=== PATIENT | female | born 2000 | race Caucasian/White ===

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

== ENCOUNTER 2019-02-19 22:14 | Emergency (ER) | payer OTHER ==
--- NOTE | 2019-02-19 22:51 | ED ---
General Adult HPI - General Source: patient Mode of arrival: ambulatory Limitations: no limitations <Ayo Dominguez Sharmin - Last Filed: 02/19/19 22:51> <AnumsandraJoaquim Dyson - Last Filed: 02/20/19 06:21> - General Chief complaint: Psychiatric Symptoms Stated complaint: suicidal Time Seen by Provider: 02/19/19 22:37 - History of Present Illness Initial comments: Dictation was produced using [employer] medical dictation software. please excuse any grammatical, word or spelling errors. Chief Complaint: 18-year-old female with past medical history of depression and suicidal attempt presents with suicidal ideation History of Present Illness: Patient is a 18-year-old female she presents after suicidal ideation. Patient was in her room when she was going to attempt to hang herself from her ceiling fan. Patient also was going to turn the car and of the garage to poison herself. Patient states she's been depressed. Denies any homicidal ideation. Denies any auditory or visual hallucinations. Patient has history of Tylenol overdose in the past. She was caught in her room with an electric cord having from her ceiling. She was then caught by her mother who broke down the door. law enforcement was called patient back to the emergency department. The ROS documented in this emergency department record has been reviewed and confirmed by me. Those systems with pertinent positive or negative responses have been documented in the HPI. All other systems are other negative and/or noncontributory. PHYSICAL EXAM: General Impression: Alert and oriented x3, not in acute distress HEENT: Normocephalic atraumatic, extra-ocular movements intact, pupils equal and reactive to light bilaterally, mucous membranes moist. Cardiovascular: Heart regular rate and rhythm, S1&S2 audible, no murmurs, rubs or gallops Chest: Lungs clear to auscultation bilaterally, no rhonchi, no wheeze, no rales Abdomen: Bowel sounds present, abdomen soft, non-tender, non-distended, no organomegaly Musculoskeletal: Pulses present and equal in all extremities, no peripheral edema Motor: no focal deficits noted Neurological: CN II-XII grossly intact, no focal motor or sensory deficits noted Skin: Intact with no visualized rashes Psych: Tearful ED course: 18-year-old female presents with suicidal ideation. Patient was brought in by law enforcement. Patient denies any toxic ingestions this time. Vital signs upon arrival are within acceptable limits. (Ayo Dominguez) - Related Data Home Medications Medication Instructions Recorded Confirmed ARIPiprazole [Abilify] 5 mg PO HS 09/09/18 02/19/19 Citalopram Hydrobromide [CeleXA] 40 mg PO HS 09/09/18 02/19/19 Solodyn 1 applic TOPICAL HS 02/19/19 02/19/19 lamoTRIgine [LaMICtal] 150 mg PO DAILY 02/19/19 02/19/19 Allergies Allergy/AdvReac Type Severity Reaction Status Date / Time amoxicillin Allergy Anaphylaxis Verified 02/19/19 23:31 Penicillins Allergy Anaphylaxis Verified 02/19/19 23:31 acetaminophen [From Tylenol] AdvReac Nausea & Verified 02/19/19 23:31 Vomiting Review of Systems ROS Other: All systems not noted in ROS Statement are negative. <Ayo Dominguez - Last Filed: 02/19/19 22:51> ROS Other: All systems not noted in ROS Statement are negative. <Joaquim Greer - Last Filed: 02/20/19 06:21> ROS Statement: Those systems with pertinent positive or pertinent negative responses have been documented in the HPI. Past Medical History Additional Past Medical History / Comment(s): Irritable bowel syndrome, previous Tylenol overdose with acute liver damage, over dose x2 History of Any Multi-Drug Resistant Organisms: None Reported Past Surgical History: Adenoidectomy, Tonsillectomy Additional Past Surgical History / Comment(s): wisdom teeth removal Past Anesthesia/Blood Transfusion Reactions: No Reported Reaction Past Psychological History: Anxiety, Bipolar, Depression Smoking Status: Current every day smoker Past Alcohol Use History: None Reported Past Drug Use History: Marijuana - Past Family History Father Family Medical History: Diabetes Mellitus, Hypertension Additional Family Medical History / Comment(s): Father is alive with history of diabetes Mother Family Medical History: Hypertension, Myocardial Infarction ([place]), Thyroid Disorder Additional Family Medical History / Comment(s): Mother is alive with a history of diabetes, hypothyroidism, myocardial infarction, stroke Sister(s) Additional Family Medical History / Comment(s): Patient has 3 sisters with no major medical problems. Patient does not have any brothers. <Ayo Dominguez - Last Filed: 02/19/19 22:51> General Exam Limitations: no limitations <Ayo Dominguez - Last Filed: 02/19/19 22:51> Course <Joaquim Greer - Last Filed: 02/20/19 06:21> Vital Signs 02/19/19 22:30 Temperature 97.9 F Pulse Rate 75 Respiratory 20 Rate Blood Pressure 150/90 O2 Sat by Pulse 97 Oximetry - Reevaluation(s) Reevaluation #1: 02/20/19 04:23 18-year-old female with suicidal ideation, suicide attempt. I did complain clinical certification of this patient. She will be transferred for further psychiatric evaluation and treatment. (Joaquim Greer) Medical Decision Making - Lab Data Result diagrams: 02/19/19 23:59 02/19/19 23:59 <Joaquim Greer - Last Filed: 02/20/19 06:21> - Medical Decision Making Patient will be transferred to [facility] for further psychiatric care (Joaquim Greer) - Lab Data Lab Results 02/19/19 02/19/19 02/19/19 Range/Units Unknown 23:59 23:59 WBC 9.1 (4.0-11.0) k/uL RBC 4.46 (3.80-5.40) m/uL Hgb 12.5 (11.4-16.0) gm/dL Hct 37.1 (34.0-46.0) % MCV 83.2 (80.0-100.0) fL MCH 28.0 (25.0-35.0) pg MCHC 33.7 (31.0-37.0) g/dL RDW 13.8 (11.5-15.5) % Plt Count 266 (150-450) k/uL Neutrophils % 76 % Lymphocytes % 18 % Monocytes % 4 % Eosinophils % 1 % Basophils % 0 % Neutrophils # 6.9 (1.3-7.7) k/uL Lymphocytes # 1.6 (1.0-4.8) k/uL Monocytes # 0.4 (0-1.0) k/uL Eosinophils # 0.1 (0-0.7) k/uL Basophils # 0.0 (0-0.2) k/uL Sodium 139 (137-145) mmol/L Potassium 3.9 (3.5-5.1) mmol/L Chloride 105 (98-107) mmol/L Carbon Dioxide 27 (22-30) mmol/L Anion Gap 7 mmol/L BUN 11 (7-17) mg/dL Creatinine 0.67 (0.52-1.04) mg/dL Est GFR (CKD-EPI)AfAm >90 (>60 ml/min/1.73 sqM) Est GFR (CKD-EPI)NonAf >90 (>60 ml/min/1.73 sqM) Glucose 97 (74-99) mg/dL Calcium 9.8 (8.4-10.2) mg/dL Urine HCG, Qual Not Detected (Not Detectd) Urine Opiates Screen (NotDetected) Ur Oxycodone Screen (NotDetected) Urine Methadone Screen (NotDetected) Ur Propoxyphene Screen (NotDetected) Ur Barbiturates Screen (NotDetected) U Tricyclic Antidepress (NotDetected) Ur Phencyclidine Scrn (NotDetected) Ur Amphetamines Screen (NotDetected) U Methamphetamines Scrn (NotDetected) U Benzodiazepines Scrn (NotDetected) Urine Cocaine Screen (NotDetected) U Marijuana (THC) Screen (NotDetected) 02/20/19 Range/Units 03:00 WBC (4.0-11.0) k/uL RBC (3.80-5.40) m/uL Hgb (11.4-16.0) gm/dL Hct (34.0-46.0) % MCV (80.0-100.0) fL MCH (25.0-35.0) pg MCHC (31.0-37.0) g/dL RDW (11.5-15.5) % Plt Count (150-450) k/uL Neutrophils % % Lymphocytes % % Monocytes % % Eosinophils % % Basophils % % Neutrophils # (1.3-7.7) k/uL Lymphocytes # (1.0-4.8) k/uL Monocytes # (0-1.0) k/uL Eosinophils # (0-0.7) k/uL Basophils # (0-0.2) k/uL Sodium (137-145) mmol/L Potassium (3.5-5.1) mmol/L Chloride (98-107) mmol/L Carbon Dioxide (22-30) mmol/L Anion Gap mmol/L BUN (7-17) mg/dL Creatinine (0.52-1.04) mg/dL Est GFR (CKD-EPI)AfAm (>60 ml/min/1.73 sqM) Est GFR (CKD-EPI)NonAf (>60 ml/min/1.73 sqM) Glucose (74-99) mg/dL Calcium (8.4-10.2) mg/dL Urine HCG, Qual (Not Detectd) Urine Opiates Screen Not Detected (NotDetected) Ur Oxycodone Screen Not Detected (NotDetected) Urine Methadone Screen Not Detected (NotDetected) Ur Propoxyphene Screen Not Detected (NotDetected) Ur Barbiturates Screen Not Detected (NotDetected) U Tricyclic Antidepress Not Detected (NotDetected) Ur Phencyclidine Scrn Not Detected (NotDetected) Ur Amphetamines Screen Not Detected (NotDetected) U Methamphetamines Scrn Not Detected (NotDetected) U Benzodiazepines Scrn Not Detected (NotDetected) Urine Cocaine Screen Not Detected (NotDetected) U Marijuana (THC) Screen Detected H (NotDetected) Disposition <Ayo Dominguez - Last Filed: 02/19/19 22:51> Is patient prescribed a controlled substance at d/c from ED?: No - Out of Hospital Transfer - Req. Specs Out of Hospital Transfer - Requested Specifics: Psychiatric Non-ICU (Transfered to [facility]) <Joaquim Greer - Last Filed: 02/20/19 06:21> Clinical Impression: Depression, Attempted suicide Disposition: OTHER INSTITUTION NOT DEFINED Condition: Stable Referrals: None,Stated [Primary Care Provider] - 1-2 days
[2019-02-20] MEDS ORDERED: ALPRAZolam 0.5 MG TAB PO STA (00:06)
[2019-02-20 00:10] LABS: Basophils % (A) 0 %; Eosinophils # (A) 0.1 k/uL (0-0.7); Eosinophils % (A) 1 %; HCT 37.1 % (34.0-46.0); HGB 12.5 gm/dL (11.4-16.0); Lymphocytes # (A) 1.6 k/uL (1.0-4.8); Lymphocytes % (A) 18 %; MCHC 33.7 g/dL (31.0-37.0); MCV 83.2 fL (80.0-100.0); Mean Platelet Volume 6.6; Monocytes # (A) 0.4 k/uL (0-1.0); Monocytes % (A) 4 %; Neutrophils # (A) 6.9 k/uL (1.3-7.7); Neutrophils % (A) 76 %; Platelet Count 266 k/uL (150-450); RBC 4.46 m/uL (3.80-5.40); RDW 13.8 % (11.5-15.5); WBC 9.1 k/uL (4.0-11.0)
[2019-02-20 00:35] LABS: Anion Gap 7 mmol/L; Blood Urea Nitrogen 11 mg/dL (7-17); Calcium 9.8 mg/dL (8.4-10.2); Carbon Dioxide 27 mmol/L (22-30); Chloride 105 mmol/L (98-107); Glucose 97 mg/dL (74-99); Potassium 3.9 mmol/L (3.5-5.1); Sodium 139 mmol/L (137-145)
[2019-02-20 03:40] LABS: Amphetamine Screen,Urine Not Detected (NotDetected); Barbiturate Screen,Urine Not Detected (NotDetected); Benzodiazepines Screen,Urine Not Detected (NotDetected); Cocaine Screen,Urine Not Detected (NotDetected); Methadone Screen, Urine Not Detected (NotDetected); Opiate Screen,Urine Not Detected (NotDetected); Oxycodone Screen, Urine Not Detected (NotDetected); Phencyclidine Screen,Urine Not Detected (NotDetected); Tricyclic Antidepressant,Urine Not Detected (NotDetected); Urn Cannabinoid Scrn Detected (NotDetected)
[2019-02-20 07:16] VITALS: BP 120/69; PULSE 79; RESP 16; TEMP 98.5
== END 2019-02-20 07:18 | disposition other institution (70) ==
LOC: EC 22:14
DX: F31.9 Bipolar disorder, unspecified (principal); R45.851 Suicidal ideations; F41.9 Anxiety disorder, unspecified; F17.200 Nicotine dependence, unspecified, uncomplicated; Z79.899 Other long term (current) drug therapy; Z88.0 Allergy status to penicillin; Z88.8 Allergy status to other drugs, medicaments and biological substances
CPT/HCPCS: 36415; 80048; 80306; 81025; 85025; 99285

== ENCOUNTER 2023-10-09 18:16 | Inpatient (IN) | payer OTHER ==
--- NOTE | 2023-10-09 20:15 | ED ---
General Adult HPI - General Source: EMS Mode of arrival: EMS Limitations: altered mental status <Ventura Smith - Last Filed: 10/10/23 16:20> - History of Present Illness -: unknown Location: head Severity scale (1-10): 10 Quality: aching Consistency: constant Worsens with: none Associated Symptoms: confusion <Donis Landers - Last Filed: 10/17/23 14:14> - General Chief complaint: Psychiatric Symptoms Stated complaint: mental health Time Seen by Provider: 10/09/23 18:30 - History of Present Illness Initial comments: 23-year-old female presents to the ED with a chief complaint of psychiatric problem. Patient states last night anywhere from approximately 8 PM to 10 PM took all of her pills in attempt to kill herself. Patient ingested an unknown amount of much of Lamotrigine 100 mg, buspirone him a diphenhydramine 25 mg, sumatriptan 100 mg, lithium 300 mg, and apoquel. (Ventura Smith) This is a 23-year-old female the emergency department today for evaluation of overdose, unknown drug overdose with multiple medications. Is having significant psychosis here in the ER will be admitted for evaluation and treatment medically as well as psychiatry (Donis Landers) - Related Data Home Medications Medication Instructions Recorded Confirmed Ibuprofen [Motrin] 800 mg PO Q8H PRN 10/09/23 10/09/23 [place] Carbonate [[place] 300 mg PO BID 10/09/23 10/09/23 Carbonate ER] Omeprazole [PriLOSEC] 20 mg PO DAILY 10/09/23 10/09/23 SUMAtriptan succinate 100 mg PO BID PRN 10/09/23 10/09/23 busPIRone HCl [Buspar] 5 mg PO BID 10/09/23 10/09/23 diphenhydrAMINE [Benadryl] 25 mg PO QID PRN 10/09/23 10/09/23 lamoTRIgine [lamoTRIgine ER] 300 mg PO DAILY 10/09/23 10/09/23 Allergies Allergy/AdvReac Type Severity Reaction Status Date / Time amoxicillin Allergy Anaphylaxis Verified 10/09/23 20:19 Penicillins Allergy Anaphylaxis Verified 10/09/23 20:19 acetaminophen [From Tylenol] AdvReac Nausea & Verified 10/09/23 20:19 Vomiting Review of Systems ROS Other: All systems not noted in ROS Statement are negative. <Ventura Smith - Last Filed: 10/10/23 16:20> ROS Other: All systems not noted in ROS Statement are negative. <Donis Landers - Last Filed: 10/17/23 14:14> ROS Statement: Those systems with pertinent positive or pertinent negative responses have been documented in the HPI. Past Medical History Additional Past Medical History / Comment(s): Irritable bowel syndrome, previous Tylenol overdose with acute liver damage, over dose x2 History of Any Multi-Drug Resistant Organisms: None Reported Past Surgical History: Adenoidectomy, Tonsillectomy Additional Past Surgical History / Comment(s): wisdom teeth removal Past Anesthesia/Blood Transfusion Reactions: No Reported Reaction Past Psychological History: Anxiety, Bipolar, Depression, PTSD Smoking Status: Current every day smoker Past Alcohol Use History: Occasional Past Drug Use History: Marijuana - Past Family History Father Family Medical History: Diabetes Mellitus, Hypertension Additional Family Medical History / Comment(s): Father is alive with history of diabetes Mother Family Medical History: Hypertension, Myocardial Infarction ([place]), Thyroid Disorder Additional Family Medical History / Comment(s): Mother is alive with a history of diabetes, hypothyroidism, myocardial infarction, stroke Sister(s) Additional Family Medical History / Comment(s): Patient has 3 sisters with no major medical problems. Patient does not have any brothers. <Ventura Smith - Last Filed: 10/10/23 16:20> General Exam Limitations: altered mental status General appearance: alert Eye exam: Present: other (Nystagmus) ENT exam: Present: other (Dry mucous membranes) Respiratory exam: Present: normal lung sounds bilaterally Cardiovascular Exam: Present: tachycardia GI/Abdominal exam: Present: soft Extremities exam: Present: other (Reflexes intact. No hyperreflexia.) Neurological exam: Present: alert, oriented X3 Skin exam: Present: warm <Ventura Smith - Last Filed: 10/10/23 16:20> Limitations: altered mental status General appearance: anxious, in distress Head exam: Present: atraumatic, normocephalic, normal inspection Eye exam: Present: normal appearance, PERRL, EOMI. Absent: scleral icterus, conjunctival injection, periorbital swelling ENT exam: Present: normal exam, mucous membranes moist Neck exam: Present: normal inspection. Absent: tenderness, meningismus, lymphadenopathy Respiratory exam: Present: normal lung sounds bilaterally. Absent: respiratory distress, wheezes, rales, rhonchi, stridor Cardiovascular Exam: Present: normal rhythm, tachycardia, normal heart sounds. Absent: systolic murmur, diastolic murmur, rubs, gallop, clicks GI/Abdominal exam: Present: soft, normal bowel sounds. Absent: distended, tenderness, guarding, rebound, rigid Extremities exam: Present: normal inspection, full ROM, normal capillary refill. Absent: tenderness, pedal edema, joint swelling, calf tenderness Back exam: Present: normal inspection Neurological exam: Present: alert, oriented X3, CN II-XII intact Psychiatric exam: Present: normal affect, normal mood Skin exam: Present: warm, dry, intact, normal color. Absent: rash <Donis Landers - Last Filed: 10/17/23 14:14> - General Exam Comments Initial Comments: Diaphoretic (Donis Landers) Course <Donis Landers - Last Filed: 10/17/23 14:14> Vital Signs 10/09/23 10/10/23 10/10/23 18:28 03:12 07:26 Temperature 98.9 F 97.4 F L Pulse Rate 105 H 102 H 81 Respiratory 18 22 20 Rate Blood Pressure 155/98 143/96 127/76 O2 Sat by Pulse 96 97 98 Oximetry Fraction of Inspired Oxygen (FIO2) 10/10/23 10/10/23 10/10/23 10:35 18:00 22:00 Temperature 98.3 F 98.5 F 100.4 F H Pulse Rate 100 89 98 Respiratory 22 20 22 Rate Blood Pressure 148/95 147/76 142/80 O2 Sat by Pulse 97 98 96 Oximetry Fraction of Inspired Oxygen (FIO2) 10/11/23 10/11/23 10/11/23 00:00 01:00 02:00 Temperature 99.9 F H Pulse Rate 117 H 111 H 115 H Respiratory 22 20 Rate Blood Pressure 153/75 150/53 O2 Sat by Pulse 96 97 Oximetry Fraction of Inspired Oxygen (FIO2) 10/11/23 10/11/23 10/11/23 03:00 04:00 05:00 Temperature 99.6 F Pulse Rate 117 H 92 95 Respiratory 20 20 20 Rate Blood Pressure 134/77 136/80 125/72 O2 Sat by Pulse 96 96 96 Oximetry Fraction of Inspired Oxygen (FIO2) 10/11/23 10/11/23 10/11/23 06:00 08:00 09:00 Temperature 99.3 F Pulse Rate 90 96 112 H Respiratory 20 24 22 Rate Blood Pressure 142/71 116/62 117/62 O2 Sat by Pulse 96 95 95 Oximetry Fraction of Inspired Oxygen (FIO2) 10/11/23 10/11/23 10/11/23 12:00 14:00 16:44 Temperature Pulse Rate 112 H 115 H Respiratory 27 H 23 Rate Blood Pressure 140/104 152/83 O2 Sat by Pulse 97 95 Oximetry Fraction of 100 Inspired Oxygen (FIO2) 10/11/23 10/11/23 10/11/23 16:45 16:55 17:10 Temperature Pulse Rate 126 H 147 H 151 H Respiratory 45 H 32 H 32 H Rate Blood Pressure 129/66 201/99 136/54 O2 Sat by Pulse 99 99 99 Oximetry Fraction of Inspired Oxygen (FIO2) 10/11/23 10/11/23 17:20 17:49 Temperature 102 F H Pulse Rate 120 H Respiratory 32 H Rate Blood Pressure 124/66 O2 Sat by Pulse 98 Oximetry Fraction of 50 Inspired Oxygen (FIO2) - Reevaluation(s) Reevaluation #1: 10/10/23 22:28 Record is reviewed (Donis Landers) Reevaluation #2: 10/10/23 22:28 Patient is having worsening symptoms here in the ER is becoming more altered with increased psychosis significant nystagmus is noted on exam with diaphoresis with elevated heart rate as well as involuntary movement (Donis Landers) Reevaluation #3: 10/10/23 22:31 Patient family informed of results questions answered (Donis Landers) Reevaluation #4: Was pt. sent in by a medical professional or institution (, PA, RAM PRESS OPERATOR, urgent care, hospital, or detention...) When possible be specific @ -no Did you speak to anyone other than the patient for history (EMS, parent, family, police, friend...)? What history was obtained from this source @ -no Did you review nursing and triage notes (agree or disagree)? Why? @ -agree Are old charts reviewed (outside hosp., previous admission, EMS record, old EKG, old radiological studies, urgent care reports/EKG's, detention records)? Report findings @ -yes Differential Diagnosis (chest pain, altered mental status, abdominal pain women, abdominal pain men, vaginal bleeding, weakness, fever, dyspnea, syncope, headache, dizziness, GI bleed, back pain, seizure, CVA, palpatations, mental health, musculoskeletal)? @ -prior EKG interpreted by me (3pts min.). @ -yes X-rays interpreted by me (1pt min.). @ -no CT interpreted by me (1pt min.). @ -no U/S interpreted by me (1pt. min.). @ -no What testing was considered but not performed or refused? (CT, X-rays, U/S, labs)? Why? @ -none What meds were considered but not given or refused? Why? @ -none Did you discuss the management of the patient with other professionals (professionals i.e. , PA, RAM PRESS OPERATOR, lab, RT, psych nurse, social sciences department chair, channel supervisor, teacher, infantry officer, employment evaluator/case manager)? Give summary @ -no Was smoking cessation discussed for >3mins.? @ -no Was critical care preformed (if so, how long)? @ yes31 Were there social determinants of health that impacted care today? How? (Homelessness, low income, unemployed, alcoholism, drug addiction, transportation, low edu. Level, literacy, decrease access to med. care, retirement, rehab)? @ -none Was there de-escalation of care discussed even if they declined (Discuss DNR or withdrawal of care, Hospice)? DNR status @ -no What co-morbidities impacted this encounter? (DM, HTN, Smoking, COPD, CAD, Cancer, CVA, ARF, Chemo, Hep., AIDS, mental health diagnosis, sleep apnea, morbid obesity)? @ -none Was patient admitted / discharged? Hospital course, mention meds given and route, prescriptions, significant lab abnormalities, going to OR and other pertinent info. @ - 23 female to emergency trauma today for evaluation was initially to be seen by psychiatry, patient is going to significant past traumatic toxidrome with diaphoresis elevated heart rate and fever found here in the emergency department. Patient significantly altered secondary to psychiatric overdose, significant significantly restless and unresponsive blood patient is protecting her airway and is maintaining her respiratory rate for further evaluation management Admitted Undiagnosed new problem with uncertain prognosis? @ -no Drug Therapy requiring intensive monitoring for toxicity (Heparin, Nitro, Insulin, Cardizem)? @ -no Were any procedures done? @ -no Diagnosis/symptom? @ -Overdose with suicide attempt, sympathomimetic poisoning Acute, or Chronic, or Acute on Chronic? @ -Acute Uncomplicated (without systemic symptoms) or Complicated (systemic symptoms)? @ -Complicated Side effects of treatment? @ -no Exacerbation, Progression, or Severe Exacerbation? @ -exacerbation Poses a threat to life or bodily function? How? (Chest pain, [place], [place], pneumonia, PE, COPD, DKA, ARF, appy, cholecystitis, CVA, Diverticulitis, Homicidal, Suicidal, threat to staff... and all critical care pts) @ -yes with significant overdose (Donis Landers) Reevaluation #5: 10/10/23 22:28 Differential Altered Mental Status: Hypoglycemia, DKA, hypercapnia, ETOH, overdose, CO poisoning, trauma, myxedema coma, HTN encephalopathy, infection, encephalitis, psychosis, intercranial hemorrhage, hepatic encephalopathy, meningitis, CVA, this is not meant to be an all-inclusive list (Donis Landers) - Consultations Consultation #1: Spoke with [facility] regarding admission and they are agreeable (Donis Landers) EKG Findings - EKG Comments: EKG Findings:: EKG is sinus 93 VA 146 QRS 90 QTC 432 - EKG Results: EKG: interpreted by ERMD <Donis Landers - Last Filed: 10/17/23 14:14> Medical Decision Making - Lab Data Result diagrams: 10/09/23 19:39 10/09/23 21:17 <Ventura Smith - Last Filed: 10/10/23 16:20> - Lab Data Result diagrams: 10/16/23 05:57 10/17/23 06:09 - EKG Data -: EKG Interpreted by Me <Donis Landers - Last Filed: 10/17/23 14:14> - Medical Decision Making Was pt. sent in by a medical professional or institution (KRYSTA Cameron, RAM PRESS OPERATOR, urgent care, hospital, or detention...) When possible be specific @ -No Did you speak to anyone other than the patient for history (EMS, parent, family, police, friend...)? What history was obtained from this source @ -No Did you review nursing and triage notes (agree or disagree)? Why? @ -I reviewed and agree with nursing and triage notes Were old charts reviewed (outside hosp., previous admission, EMS record, old EKG, old radiological studies, urgent care reports/EKG's, detention records)? Report findings @ -No old charts were reviewed Differential Diagnosis (chest pain, altered mental status, abdominal pain women, abdominal pain men, vaginal bleeding, weakness, fever, dyspnea, syncope, headache, dizziness, GI bleed, back pain, seizure, CVA, palpatations, mental health, musculoskeletal)? @ -Differential Mental Health Depression, anxiety, bipolar, psychosis, schizophrenia, borderline personality, situational depression, adjustment disorder, behavioral disorder, brain tumor, malingering, substance abuse, encephalopathy, medication reaction, dementia, hypothyroidism, degenerative neurologic disorder, lupus.... This is not meant to be all-inclusive list EKG interpreted by me (3pts min.). @ -EKG shows a sinus rhythm with nonspecific ST and T-wave changes. VA 146, QRS 90, QT/QTC 381/432. X-rays interpreted by me (1pt min.). @ -None done CT interpreted by me (1pt min.). @ -None done U/S interpreted by me (1pt. min.). @ -None done What testing was considered but not performed or refused? (CT, X-rays, U/S, labs)? Why? @ -None What meds were considered but not given or refused? Why? @ -None Did you discuss the management of the patient with other professionals (professionals i.e. KRYSTA Cameron, RAM PRESS OPERATOR, lab, RT, psych nurse, social sciences department chair, channel supervisor, teacher, infantry officer, employment evaluator/case manager)? Give summary @ -Discussed with poison control with this time recommends comprehensive metabolic panel, lithium, trending lithium at least twice if levels are found to be elevated, and drug screening. Was smoking cessation discussed for >3mins.? @ -No Was critical care preformed (if so, how long)? @ -No Were there social determinants of health that impacted care today? How? (Homelessness, low income, unemployed, alcoholism, drug addiction, transportation, low edu. Level, literacy, decrease access to med. care, retirement, rehab)? @ -No Was there de-escalation of care discussed even if they declined (Discuss DNR or withdrawal of care, Hospice)? DNR status @ -No What co-morbidities impacted this encounter? (DM, HTN, Smoking, COPD, CAD, Cancer, CVA, ARF, Chemo, Hep., AIDS, mental health diagnosis, sleep apnea, morbid obesity)? @ -None Was patient admitted / discharged? Hospital course, mention meds given and route, prescriptions, significant lab abnormalities, going to OR and other pertinent info. @ -Admission Patient presenting with polysubstance overdose in attempt to kill herself last night. Laboratory studies reviewed. CBC unremarkable. Chemistry panel unremarkable. Urine hCG (-). Toxicology studies other than lithium unremarkable. Lithum found to be therapuetic at 0.8. Repeat shows no increase at 0.8. At this time, patient is medically clear. Patient evaluated by psychiatry who at this time recommend patient psychiatric services. Undiagnosed new problem with uncertain prognosis? @ -No Drug Therapy requiring intensive monitoring for toxicity (Heparin, Nitro, Insulin, Cardizem)? @ -No Were any procedures done? @ -No Diagnosis/symptom? @ -Suicidal ideation Acute, or Chronic, or Acute on Chronic? @ -Acute Uncomplicated (without systemic symptoms) or Complicated (systemic symptoms)? @ -Complicated Side effects of treatment? @ -No Exacerbation, Progression, or Severe Exacerbation? @ -No Poses a threat to life or bodily function? How? (Chest pain, [place], [place], pneumonia, PE, COPD, DKA, ARF, appy, cholecystitis, CVA, Diverticulitis, Homicidal, Suicidal, threat to staff... and all critical care pts) @ -Yes, possibly (Ventura Smith) 23 female to emergency trauma today for evaluation was initially to be seen by psychiatry, patient is going to significant past traumatic toxidrome with diaphoresis elevated heart rate and fever found here in the emergency department. Patient significantly altered secondary to psychiatric overdose, significant significantly restless and unresponsive blood patient is protecting her airway and is maintaining her respiratory rate for further evaluation management (Roskopp,Donis B) - Lab Data Lab Results 10/09/23 10/09/23 10/09/23 Range/Units 19:39 19:39 21:17 WBC 10.1 (3.8-10.6) k/uL RBC 4.63 (3.80-5.40) m/uL Hgb 13.0 (11.4-16.0) gm/dL Hct 37.9 (34.0-46.0) % MCV 81.9 (80.0-100.0) fL MCH 28.2 (25.0-35.0) pg MCHC 34.4 (31.0-37.0) g/dL RDW 14.6 (11.5-15.5) % Plt Count 363 (150-450) k/uL MPV 7.6 Neutrophils % 75 % Lymphocytes % 19 % Monocytes % 5 % Eosinophils % 0 % Basophils % 0 % Neutrophils # 7.6 (1.3-7.7) k/uL Lymphocytes # 1.9 (1.0-4.8) k/uL Monocytes # 0.5 (0-1.0) k/uL Eosinophils # 0.0 (0-0.7) k/uL Basophils # 0.0 (0-0.2) k/uL Sodium 142 (137-145) mmol/L Potassium 3.7 (3.5-5.1) mmol/L Chloride 106 (98-107) mmol/L Carbon Dioxide 21 L (22-30) mmol/L Anion Gap 15 mmol/L BUN 8 (7-17) mg/dL Creatinine 0.88 (0.52-1.04) mg/dL Est GFR (CKD-EPI)AfAm >90 (>60 ml/min/1.73 sqM) Est GFR (CKD-EPI)NonAf >90 (>60 ml/min/1.73 sqM) Glucose 129 H (74-99) mg/dL Calcium 9.6 (8.4-10.2) mg/dL Total Bilirubin 0.5 (0.2-1.3) mg/dL AST 17 (14-36) U/L ALT 18 (4-34) U/L Alkaline Phosphatase 96 (38-126) U/L Total Protein 6.9 (6.3-8.2) g/dL Albumin 4.2 (3.5-5.0) g/dL Urine HCG, Qual (Not Detectd) Salicylates <1.0 mg/dL Urine Opiates Screen (NotDetected) Ur Oxycodone Screen (NotDetected) Urine Methadone Screen (NotDetected) Ur Propoxyphene Screen (NotDetected) Acetaminophen <10.0 ug/mL Ur Barbiturates Screen (NotDetected) Phenytoin <3.0 ug/mL Valproic Acid <10.0 ug/mL Carbamazepine <3.0 ug/mL U Tricyclic Antidepress (NotDetected) Ur Phencyclidine Scrn (NotDetected) Ur Amphetamines Screen (NotDetected) U Methamphetamines Scrn (NotDetected) U Benzodiazepines Scrn (NotDetected) [place] 0.8 mmol/L Urine Cocaine Screen (NotDetected) U Marijuana (THC) Screen (NotDetected) Serum Alcohol <10 mg/dL SARS-CoV-2 (PCR) (Not Detectd) 10/09/23 10/09/23 10/09/23 Range/Units 22:43 22:43 22:43 WBC (3.8-10.6) k/uL RBC (3.80-5.40) m/uL Hgb (11.4-16.0) gm/dL Hct (34.0-46.0) % MCV (80.0-100.0) fL MCH (25.0-35.0) pg MCHC (31.0-37.0) g/dL RDW (11.5-15.5) % Plt Count (150-450) k/uL MPV Neutrophils % % Lymphocytes % % Monocytes % % Eosinophils % % Basophils % % Neutrophils # (1.3-7.7) k/uL Lymphocytes # (1.0-4.8) k/uL Monocytes # (0-1.0) k/uL Eosinophils # (0-0.7) k/uL Basophils # (0-0.2) k/uL Sodium (137-145) mmol/L Potassium (3.5-5.1) mmol/L Chloride (98-107) mmol/L Carbon Dioxide (22-30) mmol/L Anion Gap mmol/L BUN (7-17) mg/dL Creatinine (0.52-1.04) mg/dL Est GFR (CKD-EPI)AfAm (>60 ml/min/1.73 sqM) Est GFR (CKD-EPI)NonAf (>60 ml/min/1.73 sqM) Glucose (74-99) mg/dL Calcium (8.4-10.2) mg/dL Total Bilirubin (0.2-1.3) mg/dL AST (14-36) U/L ALT (4-34) U/L Alkaline Phosphatase (38-126) U/L Total Protein (6.3-8.2) g/dL Albumin (3.5-5.0) g/dL Urine HCG, Qual Not Detected (Not Detectd) Salicylates mg/dL Urine Opiates Screen Not Detected (NotDetected) Ur Oxycodone Screen Not Detected (NotDetected) Urine Methadone Screen Not Detected (NotDetected) Ur Propoxyphene Screen Not Detected (NotDetected) Acetaminophen ug/mL Ur Barbiturates Screen Not Detected (NotDetected) Phenytoin ug/mL Valproic Acid ug/mL Carbamazepine ug/mL U Tricyclic Antidepress Not Detected (NotDetected) Ur Phencyclidine Scrn Not Detected (NotDetected) Ur Amphetamines Screen Not Detected (NotDetected) U Methamphetamines Scrn Not Detected (NotDetected) U Benzodiazepines Scrn Not Detected (NotDetected) [place] 0.8 mmol/L Urine Cocaine Screen Not Detected (NotDetected) U Marijuana (THC) Screen Detected H (NotDetected) Serum Alcohol mg/dL SARS-CoV-2 (PCR) (Not Detectd) 10/10/23 10/10/23 Range/Units 01:59 16:07 WBC (3.8-10.6) k/uL RBC (3.80-5.40) m/uL Hgb (11.4-16.0) gm/dL Hct (34.0-46.0) % MCV (80.0-100.0) fL MCH (25.0-35.0) pg MCHC (31.0-37.0) g/dL RDW (11.5-15.5) % Plt Count (150-450) k/uL MPV Neutrophils % % Lymphocytes % % Monocytes % % Eosinophils % % Basophils % % Neutrophils # (1.3-7.7) k/uL Lymphocytes # (1.0-4.8) k/uL Monocytes # (0-1.0) k/uL Eosinophils # (0-0.7) k/uL Basophils # (0-0.2) k/uL Sodium (137-145) mmol/L Potassium (3.5-5.1) mmol/L Chloride (98-107) mmol/L Carbon Dioxide (22-30) mmol/L Anion Gap mmol/L BUN (7-17) mg/dL Creatinine (0.52-1.04) mg/dL Est GFR (CKD-EPI)AfAm (>60 ml/min/1.73 sqM) Est GFR (CKD-EPI)NonAf (>60 ml/min/1.73 sqM) Glucose (74-99) mg/dL Calcium (8.4-10.2) mg/dL Total Bilirubin (0.2-1.3) mg/dL AST (14-36) U/L ALT (4-34) U/L Alkaline Phosphatase (38-126) U/L Total Protein (6.3-8.2) g/dL Albumin (3.5-5.0) g/dL Urine HCG, Qual (Not Detectd) Salicylates mg/dL Urine Opiates Screen (NotDetected) Ur Oxycodone Screen (NotDetected) Urine Methadone Screen (NotDetected) Ur Propoxyphene Screen (NotDetected) Acetaminophen ug/mL Ur Barbiturates Screen (NotDetected) Phenytoin ug/mL Valproic Acid ug/mL Carbamazepine ug/mL U Tricyclic Antidepress (NotDetected) Ur Phencyclidine Scrn (NotDetected) Ur Amphetamines Screen (NotDetected) U Methamphetamines Scrn (NotDetected) U Benzodiazepines Scrn (NotDetected) [place] 0.6 mmol/L Urine Cocaine Screen (NotDetected) U Marijuana (THC) Screen (NotDetected) Serum Alcohol mg/dL SARS-CoV-2 (PCR) Not Detected (Not Detectd) Critical Care Time Critical Care Time: Yes Total Critical Care Time: 31 <Donis Landers - Last Filed: 10/17/23 14:14> Disposition <Cabatu,Ventura - Last Filed: 10/10/23 16:20> Is patient prescribed a controlled substance at d/c from ED?: No Time of Disposition: 18:00 <Donis Landers - Last Filed: 10/17/23 14:14> Clinical Impression: Suicidal ideation, Depression, Overdose, Psychosis, Drug-induced psychotic disorder, Poisoning by sympathomimetic drug, Tachycardia, Fever Disposition: ADMITTED IP TO THIS HOSP Condition: Serious
[2023-10-09 20:18] LABS: Basophils % (A) 0 %; Eosinophils % (A) 0 %; HCT 37.9 % (34.0-46.0); Lymphocytes # (A) 1.9 k/uL (1.0-4.8); Lymphocytes % (A) 19 %; MCH 28.2 pg (25.0-35.0); MCHC 34.4 g/dL (31.0-37.0); MCV 81.9 fL (80.0-100.0); Mean Platelet Volume 7.6; Monocytes # (A) 0.5 k/uL (0-1.0); Monocytes % (A) 5 %; Neutrophils # (A) 7.6 k/uL (1.3-7.7); Neutrophils % (A) 75 %; Platelet Count 363 k/uL (150-450); RBC 4.63 m/uL (3.80-5.40); RDW 14.6 % (11.5-15.5); WBC 10.1 k/uL (3.8-10.6)
[2023-10-09 20:34] LABS: Acetaminophen <10.0 ug/mL; Alcohol <10 mg/dL; Carbamazepine (Tegretol) <3.0 ug/mL; Lithium 0.8 mmol/L; Phenytoin (Dilantin) <3.0 ug/mL; Salicylate <1.0 mg/dL
[2023-10-09] MEDS ORDERED: SODIUM CHLORIDE 0.9% 1,000 ML IV STA (20:34)
[2023-10-09] MEDS ORDERED: ONDANSETRON 4 MG/2 ML VIAL IVP STA (20:34)
[2023-10-09 20:36] LABS: Valproic Acid (Depakene) <10.0 ug/mL
[2023-10-09 22:07] LABS: ALT 18 U/L (4-34); AST 17 U/L (14-36); African American GFR (CKD) >90 (>60 ml/min/1.73 sqM); Albumin 4.2 g/dL (3.5-5.0); Alkaline Phosphatase 96 U/L (38-126); Anion Gap 15 mmol/L; Blood Urea Nitrogen 8 mg/dL (7-17); Calcium 9.6 mg/dL (8.4-10.2); Carbon Dioxide 21 mmol/L (22-30); Chloride 106 mmol/L (98-107); Glucose 129 mg/dL (74-99); Non-African American GFR(CKD) >90 (>60 ml/min/1.73 sqM); Potassium 3.7 mmol/L (3.5-5.1); Sodium 142 mmol/L (137-145); Total Bilirubin 0.5 mg/dL (0.2-1.3); Total Protein 6.9 g/dL (6.3-8.2)
[2023-10-09] MEDS ORDERED: METOCLOPRAMIDE 5 MG/ML 2 ML VIAL IVP STA (23:06)
[2023-10-09 23:23] LABS: Amphetamine Screen,Urine Not Detected (NotDetected); Barbiturate Screen,Urine Not Detected (NotDetected); Benzodiazepines Screen,Urine Not Detected (NotDetected); Cocaine Screen,Urine Not Detected (NotDetected); Methadone Screen, Urine Not Detected (NotDetected); Opiate Screen,Urine Not Detected (NotDetected); Oxycodone Screen, Urine Not Detected (NotDetected); Phencyclidine Screen,Urine Not Detected (NotDetected); Tricyclic Antidepressant,Urine Not Detected (NotDetected); Urn Cannabinoid Scrn Detected (NotDetected)
[2023-10-10] MEDS ORDERED: NALOXONE 0.4 MG/ML 1 ML VIAL IV PRN (17:48)
[2023-10-10] MEDS ORDERED: MORPHINE SULFATE 4 MG/ML SYRINGE IV PRN (17:48)
[2023-10-10] MEDS ORDERED: SODIUM CHLORIDE 0.9% 1,000 ML IV STA (17:48)
[2023-10-10] MEDS: SODIUM CHLORIDE 0.9% 1,000 ML IV SCH (18:07)
[2023-10-10 18:09] LABS: Basophils % (A) 0 %; Eosinophils % (A) 0 %; HCT 38.1 % (34.0-46.0); HGB 12.8 gm/dL (11.4-16.0); Lymphocytes # (A) 2.2 k/uL (1.0-4.8); Lymphocytes % (A) 22 %; MCH 27.6 pg (25.0-35.0); MCHC 33.5 g/dL (31.0-37.0); MCV 82.3 fL (80.0-100.0); Mean Platelet Volume 7.2; Monocytes # (A) 0.4 k/uL (0-1.0); Monocytes % (A) 4 %; Neutrophils # (A) 7.5 k/uL (1.3-7.7); Neutrophils % (A) 73 %; Platelet Count 347 k/uL (150-450); RBC 4.63 m/uL (3.80-5.40); RDW 14.9 % (11.5-15.5); WBC 10.2 k/uL (3.8-10.6)
[2023-10-10 18:49] LABS: Partial Thromboplastin Time 25.7 sec (22.0-30.0); Prothrombin Time 10.9 sec (10.0-12.5)
[2023-10-10] MEDS: ONDANSETRON 4 MG/2 ML VIAL IVP PRN (19:00)
[2023-10-10 19:04] LABS: ALT 18 U/L (4-34); AST 18 U/L (14-36); African American GFR (CKD) >90 (>60 ml/min/1.73 sqM); Alkaline Phosphatase 94 U/L (38-126); Anion Gap 14 mmol/L; Blood Urea Nitrogen 9 mg/dL (7-17); Calcium 9.3 mg/dL (8.4-10.2); Carbon Dioxide 19 mmol/L (22-30); Chloride 110 mmol/L (98-107); Glucose 120 mg/dL (74-99); Magnesium 1.9 mg/dL (1.6-2.3); Non-African American GFR(CKD) >90 (>60 ml/min/1.73 sqM); Sodium 143 mmol/L (137-145); Total Bilirubin 0.6 mg/dL (0.2-1.3); Total Protein 6.7 g/dL (6.3-8.2)
[2023-10-10 19:06] LABS: NT-Pro-B-Type Natriuretic Pept 183 pg/mL
[2023-10-10 19:25] LABS: Potassium 3.1 mmol/L (3.5-5.1)
[2023-10-10] MEDS ORDERED: LORazepam 2 MG/ML INJ IV STA (21:39)
[2023-10-11] MEDS: SODIUM CHLORIDE 0.9% 1,000 ML IV SCH ×2 (03:20→10:20)
[2023-10-11] MEDS: ONDANSETRON 4 MG/2 ML VIAL IVP PRN (09:33)
[2023-10-11] MEDS ORDERED: QUEtiapine 25 MG TAB PO STA (10:03)
[2023-10-11] MEDS ORDERED: IBUPROFEN 400 MG TAB PO PRN (10:03)
[2023-10-11] MEDS: PANTOPRAZOLE 40 MG/10 ML VIAL IVP SCH (10:19)
[2023-10-11] MEDS: LORazepam 2 MG/ML INJ IV PRN ×4 (11:30→19:02)
[2023-10-11] MEDS ORDERED: bisacodyL 10 MG SUPP RECTAL STA (11:40)
--- NOTE | 2023-10-11 11:40 | P.HPIM ---
History of Present Illness 23-year-old female came in the with the concerns of overdose patient was attempting suicide as per the family members. Patient to these medications approximately 9:52 PM on October 08 which was couple days ago patient was okay when she came in started getting worse started getting agitated drowsy and was subsequently admitted to the medicine service because of that reason. Patient the was found to have 2 bottles of Lamictal 100 mg, buspirone, diphenhydramine, sumatriptan, 6 lithium the patient is presently agitated, having muscle spasms horizontal nystagmus all of which are consistent with anticholinergic side effects can be secondary to sumatriptan overdose. Patient is receiving Valium at this time will add Ativan at an as-needed basis as well. Patient is getting IV fluids at 1 50 mL per hour patient had nausea vomiting unable to tolerate any oral medications and activated charcoal. Patient is completely confused at this time. EKG did not show any QT prolongation. REVIEW OF SYSTEMS: CONSTITUTIONAL: No fever, no malaise, no fatigue. Confused PHYSICAL EXAMINATION: GENERAL: Patient is agitated with muscle spasm and horizontal nystagmus HEENT: Pupils are round and equally reacting to light. EOMI. No scleral icterus. No conjunctival pallor. Normocephalic, atraumatic. No pharyngeal erythema. No thyromegaly. CARDIOVASCULAR: S1 and S2 present. No murmurs, rubs, or gallops. PULMONARY: Chest is clear to auscultation, no wheezing or crackles. ABDOMEN: Soft, nontender, nondistended, normoactive bowel sounds. No palpable organomegaly. MUSCULOSKELETAL: No joint swelling or deformity. EXTREMITIES: No cyanosis, clubbing, or pedal edema. NEUROLOGICAL: Completely confused at this time SKIN: No rashes. Assessment and plan -Drug overdose mostly due to Benadryl and sumatriptan lithium and Lamictal l evels are within normal limits. Patient is presently having anticholinergic side effects as well as side effects from possibly sumatriptan. Will order laxative rectally and continue with IV fluids and replace potassium next and- hyperkalemia: Natriuretic hypokalemia, replace potassium -Suicidal ideation: Psychiatry will evaluate the patient -Horizontal nystagmus secondary to anticholinergic side effects, supportive care continue with the Valium and Ativan. -Bipolar disorder and depression -Nicotine use DVT prophylaxis: Lovenox Past Medical History Additional Past Medical History / Comment(s): Irritable bowel syndrome, previous Tylenol overdose with acute liver damage, over dose x2 History of Any Multi-Drug Resistant Organisms: None Reported Past Surgical History: Adenoidectomy, Tonsillectomy Additional Past Surgical History / Comment(s): wisdom teeth removal Past Anesthesia/Blood Transfusion Reactions: No Reported Reaction Past Psychological History: Anxiety, Bipolar, Depression, PTSD Smoking Status: Current every day smoker Past Alcohol Use History: Occasional Past Drug Use History: Marijuana - Past Family History Father Family Medical History: Diabetes Mellitus, Hypertension Additional Family Medical History / Comment(s): Father is alive with history of diabetes Mother Family Medical History: Hypertension, Myocardial Infarction ([place]), Thyroid Disorder Additional Family Medical History / Comment(s): Mother is alive with a history of diabetes, hypothyroidism, myocardial infarction, stroke Sister(s) Additional Family Medical History / Comment(s): Patient has 3 sisters with no major medical problems. Patient does not have any brothers. Medications and Allergies Home Medications Medication Instructions Recorded Confirmed Type Ibuprofen [Motrin] 800 mg PO Q8H PRN 10/09/23 10/09/23 History [place] Carbonate [[place] 300 mg PO BID 10/09/23 10/09/23 History Carbonate ER] Omeprazole [PriLOSEC] 20 mg PO DAILY 10/09/23 10/09/23 History SUMAtriptan succinate 100 mg PO BID PRN 10/09/23 10/09/23 History busPIRone HCl [Buspar] 5 mg PO BID 10/09/23 10/09/23 History diphenhydrAMINE [Benadryl] 25 mg PO QID PRN 10/09/23 10/09/23 History lamoTRIgine [lamoTRIgine ER] 300 mg PO DAILY 10/09/23 10/09/23 History Allergies Allergy/AdvReac Type Severity Reaction Status Date / Time amoxicillin Allergy Anaphylaxis Verified 10/09/23 20:19 Penicillins Allergy Anaphylaxis Verified 10/09/23 20:19 acetaminophen [From Tylenol] AdvReac Nausea & Verified 10/09/23 20:19 Vomiting Physical Exam Vitals: Vital Signs Temp Pulse Resp BP Pulse Ox 10/11/23 09:00 112 H 22 117/62 95 10/11/23 08:00 99.3 F 96 24 116/62 95 10/11/23 06:00 90 20 142/71 96 10/11/23 05:00 95 20 125/72 96 10/11/23 04:00 99.6 F 92 20 136/80 96 10/11/23 03:00 117 H 20 134/77 96 10/11/23 02:00 115 H 20 150/53 97 10/11/23 01:00 111 H 10/11/23 00:00 99.9 F H 117 H 22 153/75 96 10/10/23 22:00 100.4 F H 98 22 142/80 96 10/10/23 18:00 98.5 F 89 20 147/76 98 Results CBC & Chem 7: 10/10/23 18:00 10/10/23 18:00 Labs: Abnormal Lab Results - Last 24 Hours (Table) 10/10/23 Range/Units 18:00 Potassium 3.1 L (3.5-5.1) mmol/L Chloride 110 H (98-107) mmol/L Carbon Dioxide 19 L (22-30) mmol/L Glucose 120 H (74-99) mg/dL Phosphorus 2.0 L (2.5-4.5) mg/dL
[2023-10-11] MEDS: POTASSIUM CHLORIDE 20 MEQ in WATER FOR INJECTION 1 100ML.BAG IVPB SCH ×3 (12:49→23:16)
[2023-10-11] MEDS: 0.9% NACL WITH KCL 20 MEQ/L 1,000 ML IV SCH (13:29)
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
[2023-10-11 15:19] LABS: Basophils # (A) 0.03 X 10*3/uL (0.00-0.10); Basophils % (A) 0.3 %; Eosinophils # (A) 0 X 10*3/uL (0.04-0.35); Eosinophils % (A) 0 %; HCT 35.6 % (37.2-46.3); HGB 11.7 g/dL (12.0-15.0); Lymphocytes # (A) 1.85 X 10*3/uL (0.90-5.00); Lymphocytes % (A) 19.3 %; MCH 27.1 pg (27.0-32.0); MCHC 32.9 g/dL (32.0-37.0); MCV 82.4 FL (80.0-97.0); Mean Platelet Volume 9.9 FL (9.5-12.2); Monocytes % (A) 5.2 %; NRBC Per 100 WBC 0 X 10*3/uL (0.00-0.01); Neutrophils # (A) 7.17 X 10*3/uL (1.80-7.70); Neutrophils % (A) 74.6 %; Platelet Count 327 X 10*3/uL (140-440); RBC 4.32 X 10*6/uL (4.10-5.20); RDW 14.8 % (11.5-14.5); WBC 9.61 X 10*3/uL (4.50-10.00)
[2023-10-11 15:33] LABS: ALT 18 U/L (8-44); AST 50 U/L (13-35); Albumin/Globulin Ratio 1.82 Ratio (1.60-3.17); Alkaline Phosphatase 87 U/L (41-126); BUN/Creat Ratio 7.67 Ratio (12.00-20.00); Blood Urea Nitrogen 6.9 mg/dL (9.0-27.0); Calcium 8.9 mg/dL (8.7-10.3); Carbon Dioxide 17.3 mmol/L (21.6-31.8); Chloride 114 mmol/L (96-109); Globulin 2.2 g/dL (1.6-3.3); Glucose 80 mg/dL (70-110); Lipase 14 U/L (14-63); Sodium 146 mmol/L (135-145); Total Bilirubin 0.3 mg/dL (0.3-1.2); Total Protein 6.2 g/dL (6.2-8.2)
[2023-10-11] MEDS ORDERED: QUEtiapine 25 MG TAB PO PRN (16:24)
[2023-10-11 16:27] LABS: Magnesium 2.1 mg/dL (1.5-2.4)
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
[2023-10-11] MEDS ORDERED: ETOMIDATE 2 MG/ML 10 ML VIAL IVP STA (16:41)
[2023-10-11] MEDS ORDERED: DEXMEDETOMIDINE/0.9% NACL(PMX) 400 MCG in EMPTY BAG 1 BAG IV SCH (17:00)
[2023-10-11] MEDS ORDERED: ACETAMINOPHEN IV (For NPO) 1,000 MG in EMPTY BAG 1 BAG IVPB STA (17:06)
[2023-10-11] MEDS: MIDAZOLAM HCL 50 MG in SODIUM CHLORIDE 0.9% 40 ML IV SCH ×3 (17:33→22:50)
[2023-10-11 17:36] LABS: ABG Base Excess -6.6 mmol/L; ABG HCO3 20 mmol/L (21-25); ABG Oxygen Saturation 97.2 % (94-97); ABG PCO2 40 mmHg (35-45); ABG PO2 93 mmHg (83-108); ABG TCO2 21 mmol/L (19-24); Allen Test Performed? Yes
[2023-10-11 18:38] LABS: Glucose,Whole Blood 86 mg/dL (70-110)
--- NOTE | 2023-10-11 19:19 | XR ---
EXAM: XR chest 1V portable CLINICAL INDICATION:Female, 23 years old with history of ET placement, OG placement; [facility] COMPARISON: None. TECHNIQUE: Chest single view. FINDINGS: Lines/tubes/devices: ET tube tip projects over the proximal right mainstem bronchus. NG/OG tube trave rses below the diaphragm, tip likely over the gastric cardia but its sidehole is above the GE junctio n. EKG leads and other extrinsic structures overlie the chest. Cardiomediastinum: Cardiac silhouette appears normal in size. Unremarkable mediastinal silhouette. Vasculature: Mild pulmonary vascular congestion suggested. Lungs/pleura: No consolidation, sizeable effusion, or visible pneumothorax. Bones/soft tissues: Bony thorax appears grossly intact as seen. Regional chest soft tissues appear unremarkable. Partiall y seen bowel loops upper abdomen appear gaseous and mildly distended. IMPRESSION: 1. ET tube tip over the proximal right mainstem bronchus. Recommend retraction about 3 or 4 cm. 2. NG/OG tube tip over the gastric cardia but its sidehole is above the GE junction. Recommend sever al centimeters of additional advancement. 3. Mild pulmonary vascular congestion. 4. No pneumothorax.
--- NOTE | 2023-10-11 19:24 | XR ---
EXAM: XR chest 1V portable CLINICAL INDICATION:Female, 23 years old with history of ET placement; [facility] COMPARISON: Same day chest x-ray 4:55 PM TECHNIQUE: Chest single view. FINDINGS: Lines/tubes/devices: ET tube tip again projects over the proximal right mainstem bronchus. NG/OG tube traverses below the diaphragm, tip now over the gastric body with sidehole likely just beyond the GE junction. EKG leads and other extrinsic structures overlie the chest. Cardiomediastinum: Cardiac silhouette appears normal in size. Unremarkable mediastinal silhouette. Vasculature: Mild pulmonary vascular congestion suggested. Lungs/pleura: Interval increased opacity with air bronchograms in the left mid to lower lung with evidence of volum e loss including slight shift of the heart towards the left and mild elevation of the left hemidiaphr agm. No sizable effusion or pneumothorax. Right lung is clear. Bones/soft tissues: Bony thorax appears grossly intact as seen. Regional chest soft tissues appear unremarkable. Partiall y seen bowel loops in the upper abdomen appear gaseous and mildly distended. IMPRESSION: 1. ET tube tip remains over the proximal right mainstem bronchus. Recommend retraction about 3 or 4 cm. 2. NG/OG tube appears to have been advanced, sidehole is now beyond the GE junction. Additional adva ncement to the distal stomach or proximal duodenum recommended. 3. Increasing left basilar opacity, likely atelectasis. 4. Mild pulmonary vascular congestion. 5. No pneumothorax.
--- NOTE | 2023-10-11 19:30 | XR ---
EXAM: XR chest 1V portable CLINICAL INDICATION:Female, 23 years old with history of repositioned ett; [facility] COMPARISON: Earlier same day, most recent 5:56 PM TECHNIQUE: Chest single view. FINDINGS: Lines/tubes/devices: ET tube has been retracted with the tip now in good position 3 cm above the alex na. NG/OG tube may be slightly retracted, traverses below the diaphragm with tip over the proximal ga stric body but the sidehole is difficult to visualize. EKG leads, possible pacemaker pad and other ex trinsic structures overlie the chest. Cardiomediastinum: Cardiac silhouette appears normal in size. Unremarkable mediastinal silhouette. Vasculature: Mild pulmonary vascular congestion suggested. Lungs/pleura: Improving aeration of the left basilar opacity, with less associated volume loss, likely resolving at electasis. No new or worsening infiltrate, sizable effusion, or pneumothorax. Bones/soft tissues: Bony thorax appears grossly intact as seen. Regional chest soft tissues appear unremarkable. IMPRESSION: 1. ET tube has been retracted, with its tip in good position 3 cm above the jennifer. 2. NG/OG tube may have retracted slightly, with tip over the proximal gastric body. Recommend severa l centimeters of further advancement. 3. Improved aeration of the left lung base, likely resolving atelectasis. 4. Mild pulmonary vascular congestion. 5. No pneumothorax.
[2023-10-11] MEDS ORDERED: levETIRAcetam IV 1,500 MG in SODIUM CHLORIDE 0.9% 250 ML IVPB SCH (21:00)
[2023-10-11] MEDS: levETIRAcetam IV 500 MG/5 ML VIAL IVP SCH (22:06)
[2023-10-11 22:20] LABS: ALT 78 U/L (4-34); AST 429 U/L (14-36); African American GFR (CKD) 73 (>60 ml/min/1.73 sqM); Alkaline Phosphatase 92 U/L (38-126); Anion Gap 18 mmol/L; Blood Urea Nitrogen 10 mg/dL (7-17); Calcium 8.8 mg/dL (8.4-10.2); Carbon Dioxide 16 mmol/L (22-30); Chloride 114 mmol/L (98-107); Glucose 76 mg/dL (74-99); Non-African American GFR(CKD) 63 (>60 ml/min/1.73 sqM); Sodium 148 mmol/L (137-145); Total Bilirubin 0.5 mg/dL (0.2-1.3); Total Protein 6.6 g/dL (6.3-8.2)
[2023-10-11 23:05] LABS: ABG Base Excess -7.2 mmol/L; ABG HCO3 19 mmol/L (21-25); ABG Oxygen Saturation 98.7 % (94-97); ABG PCO2 38 mmHg (35-45); ABG PH 7.31 (7.35-7.45); ABG PO2 123 mmHg (83-108); ABG TCO2 20 mmol/L (19-24); Allen Test Performed? Yes
[2023-10-11] MEDS ORDERED: DEXTROSE 5% IN WATER 1,000 ML IV ONE (23:31)
--- NOTE | 2023-10-11 23:45 | CT ---
EXAM: CT Head Without Intravenous Contrast CLINICAL HISTORY: ITS.REASON CT Reason: seizures TECHNIQUE: Axial computed tomography images of the head/brain without intravenous contrast. CTDI is 49.1 mGy and DLP is 1117.4 mGy-cm. This CT exam was performed using one or more of the following dose reduction techniques: automated exposure control, adjustment of the mA and/or kV according to patient size, and/or use of iterative reconstruction technique. COMPARISON: No relevant prior studies available. FINDINGS: Brain: Unremarkable. No hemorrhage. No significant white matter disease. No edema. Ventricles: Unremarkable. No ventriculomegaly. Bones/joints: Unremarkable. No acute fracture. Soft tissues: Unremarkable. Sinuses: Unremarkable as visualized. No acute sinusitis. Mastoid air cells: Unremarkable as visualized. No mastoid effusion. IMPRESSION: No evidence of acute intracranial pathology.
[2023-10-12] MEDS: MIDAZOLAM HCL 50 MG in SODIUM CHLORIDE 0.9% 40 ML IV SCH (02:07)
[2023-10-12 04:45] LABS: HCT 37.9 % (34.0-46.0); Hypochromasia Slight; MCH 27.2 pg (25.0-35.0); MCHC 31.7 g/dL (31.0-37.0); MCV 85.7 fL (80.0-100.0); Mean Platelet Volume 7.7; Platelet Count 316 k/uL (150-450); RBC 4.42 m/uL (3.80-5.40); RDW 15.2 % (11.5-15.5); WBC 11.5 k/uL (3.8-10.6)
[2023-10-12 04:58] LABS: ALT 99 U/L (4-34); AST 546 U/L (14-36); African American GFR (CKD) 56 (>60 ml/min/1.73 sqM); Albumin 3.7 g/dL (3.5-5.0); Alkaline Phosphatase 89 U/L (38-126); Anion Gap 15 mmol/L; Blood Urea Nitrogen 14 mg/dL (7-17); Calcium 8.9 mg/dL (8.4-10.2); Carbon Dioxide 17 mmol/L (22-30); Chloride 116 mmol/L (98-107); Glucose 72 mg/dL (74-99); Non-African American GFR(CKD) 48 (>60 ml/min/1.73 sqM); Potassium 3.8 mmol/L (3.5-5.1); Sodium 148 mmol/L (137-145); Total Bilirubin 0.4 mg/dL (0.2-1.3); Total Protein 6.2 g/dL (6.3-8.2)
[2023-10-12] MEDS ORDERED: MIDAZOLAM HCL 50 MG in SODIUM CHLORIDE 0.9% 40 ML IV SCH (06:03)
[2023-10-12 06:27] LABS: ABG Base Excess -7.1 mmol/L; ABG HCO3 19 mmol/L (21-25); ABG Oxygen Saturation 97.9 % (94-97); ABG PCO2 40 mmHg (35-45); ABG PH 7.29 (7.35-7.45); ABG PO2 99 mmHg (83-108); ABG TCO2 21 mmol/L (19-24); Allen Test Performed? Yes
[2023-10-12 06:46] LABS: Glucose,Whole Blood 90 mg/dL (70-110)
[2023-10-12] MEDS ORDERED: SODIUM BICARB 8.4% 50 ML SYR (1 MEQ/ML) IV STA ×2 (07:33→08:30)
[2023-10-12] MEDS: 0.9% NACL WITH KCL 20 MEQ/L 1,000 ML IV SCH (08:01)
[2023-10-12] MEDS: levETIRAcetam IV 500 MG/5 ML VIAL IVP SCH ×2 (08:53→20:02)
[2023-10-12] MEDS: PANTOPRAZOLE 40 MG/10 ML VIAL IVP SCH (08:53)
[2023-10-12] MEDS: ENOXAPARIN 40 MG/0.4 ML SYRINGE SQ SCH (08:53)
--- NOTE | 2023-10-12 08:54 | XR ---
EXAMINATION TYPE: XR chest 1V portable DATE OF EXAM: 10/12/2023 5:10 AM CLINICAL INDICATION:Female, 23 years old with history of VENT; [facility] COMPARISON: Chest radiographs from same day TECHNIQUE: XR chest 1V portable Frontal view of the chest. FINDINGS: Lungs/Pleura: There is no evidence of pleural effusion, focal consolidation, or pneumothorax. Pulmonary vascularity: Unremarkable. Heart/mediastinum: Cardiomediastinal silhouette is unremarkable. Musculoskeletal: No acute osseous pathology. Other findings: None Lines/Tubes: Endotracheal tube with distal tip 2.7 cm above the jennifer. Nasogastric tube with its distal tip and side-port projecting under the diaphragm. IMPRESSION: 1. No acute cardiopulmonary disease/process. 2. Stable support tubes.
[2023-10-12] MEDS: MIDAZOLAM HCL 200 MG in SODIUM CHLORIDE 0.9% 60 ML IV SCH (08:55)
--- NOTE | 2023-10-12 10:05 | P.NPCON ---
History of Present Illness - Reason for Consult acute renal failure - History of Present Illness Reason for consultation: Acute kidney injury and hypernatremia History of present illness: Patient is a 23-year-old female seen in consultation for acute kidney injury and hypernatremia. Patient came to the hospital on 10/09/2023 after suicide attempt. It is noted in the chart the patient Lamictal and Benadryl pills in an attempt to commit suicide. Patient has history of bipolar disorder and history of suicide attempts in the past. Patient's creatinine admission was 0.88 and is up to 1.51 today. Upon admission the case was discussed with poison control and she was cleared and was awaiting a bed at the psychiatry unit. However yesterday patient developed seizure-like activity and was subsequently intubated and transferred to the ICU. She is not on any vasopressors. She is currently on D5W running at 75 mL an hour. Sodium level 148 this morning. Urine output has been about 40 mL an hour. patient does take lithium outpatient in detail level was 0.8 dated October 09 and 0.6 dated 10/10/2023. No history of diabetes. Vital signs are stable. General: Resting in bed. HEENT: Intubated. LUNGS: Scattered rhonchi. HEART: Rate and Rhythm are regular. ABDOMEN: No distention. EXTREMITITES: No edema. Past Medical History Past Medical History: GERD/Reflux, Skin Disorder Additional Past Medical History / Comment(s): Irritable bowel syndrome, previous Tylenol overdose with acute liver damage, over dose x2. Starr, pnumonia, strep, toncillectomy, migranes, bulimia History of Any Multi-Drug Resistant Organisms: None Reported Past Surgical History: Adenoidectomy, Tonsillectomy Additional Past Surgical History / Comment(s): wisdom teeth removal Past Anesthesia/Blood Transfusion Reactions: No Reported Reaction Past Psychological History: Anxiety, Bipolar, Depression, PTSD Additional Psychological History / Comment(s): Borderline personality disorder Smoking Status: Current every day smoker Past Alcohol Use History: Occasional Additional Past Alcohol Use History / Comment(s): Patient smokes an occasional cigar. She occasionally drinks wine. She uses marijuana on occasion. She denies any other street drug use. She denies any previous pregnancies and does not have any children. Past Drug Use History: Marijuana - Past Family History Father Family Medical History: Diabetes Mellitus, Hypertension Additional Family Medical History / Comment(s): Father is alive with history of diabetes Mother Family Medical History: Hypertension, Thyroid Disorder Additional Family Medical History / Comment(s): Mother is alive with a history o f diabetes, hypothyroidism, myocardial infarction, stroke Sister(s) Additional Family Medical History / Comment(s): Patient has 3 sisters with no major medical problems. Patient does not have any brothers. Medications and Allergies Home Medications Medication Instructions Recorded Confirmed Type Ibuprofen [Motrin] 800 mg PO Q8H PRN 10/09/23 10/09/23 History Dewy Rose Carbonate [Dewy Rose 300 mg PO BID 10/09/23 10/09/23 History Carbonate ER] Omeprazole [PriLOSEC] 20 mg PO DAILY 10/09/23 10/09/23 History SUMAtriptan succinate 100 mg PO BID PRN 10/09/23 10/09/23 History busPIRone HCl [Buspar] 5 mg PO BID 10/09/23 10/09/23 History diphenhydrAMINE [Benadryl] 25 mg PO QID PRN 10/09/23 10/09/23 History lamoTRIgine [lamoTRIgine ER] 300 mg PO DAILY 10/09/23 10/09/23 History Allergies Allergy/AdvReac Type Severity Reaction Status Date / Time amoxicillin Allergy Anaphylaxis Verified 10/09/23 20:19 Penicillins Allergy Anaphylaxis Verified 10/09/23 20:19 acetaminophen [From Tylenol] AdvReac Nausea & Verified 10/09/23 20:19 Vomiting Physical Exam Vitals: Vital Signs Temp Pulse Pulse Resp BP BP Pulse Ox 10/12/23 09:41 10/12/23 05:00 89 22 122/63 94 L 10/12/23 04:00 98.8 F 96 24 124/69 95 10/12/23 03:16 10/12/23 03:00 96 25 H 121/64 95 10/12/23 02:00 92 26 H 122/65 95 10/12/23 01:00 94 27 H 123/74 94 L 10/12/23 00:31 10/12/23 00:00 98.6 F 95 27 H 110/64 95 10/11/23 23:33 98.2 F 94 18 110/64 95 10/11/23 23:11 96 29 H 102/63 95 10/11/23 23:07 10/11/23 23:00 88 25 H 105/65 97 10/11/23 22:20 99 18 105/65 10/11/23 22:00 99 12 108/60 91 L 10/11/23 21:40 104 H 25 H 112/62 100 10/11/23 21:20 97 23 112/56 10/11/23 21:00 97 18 109/61 93 L 10/11/23 20:40 98 19 108/60 94 L 10/11/23 20:20 97 19 109/57 94 L 10/11/23 20:00 98.2 F 101 H 18 113/59 94 L 10/11/23 19:50 10/11/23 19:40 98 18 109/56 94 L 10/11/23 19:20 101 H 18 109/57 100 10/11/23 19:00 134 H 51 H 125/71 10/11/23 18:45 121 H 21 171/85 97 10/11/23 17:49 10/11/23 17:20 102 F H 120 H 32 H 124/66 98 10/11/23 17:10 151 H 32 H 136/54 99 10/11/23 16:57 10/11/23 16:55 147 H 32 H 201/99 99 10/11/23 16:45 126 H 45 H 129/66 99 10/11/23 16:44 10/11/23 14:00 115 H 23 152/83 95 10/11/23 12:00 112 H 27 H 140/104 97 FiO2 10/12/23 09:41 40 10/12/23 05:00 10/12/23 04:00 40 10/12/23 03:16 40 10/12/23 03:00 10/12/23 02:00 10/12/23 01:00 10/12/23 00:31 40 10/12/23 00:00 40 10/11/23 23:33 40 10/11/23 23:11 10/11/23 23:07 40 10/11/23 23:00 40 10/11/23 22:20 10/11/23 22:00 10/11/23 21:40 10/11/23 21:20 10/11/23 21:00 10/11/23 20:40 10/11/23 20:20 10/11/23 20:00 50 10/11/23 19:50 50 10/11/23 19:40 10/11/23 19:20 10/11/23 19:00 10/11/23 18:45 10/11/23 17:49 50 10/11/23 17:20 10/11/23 17:10 10/11/23 16:57 100 10/11/23 16:55 10/11/23 16:45 10/11/23 16:44 100 10/11/23 14:00 10/11/23 12:00 Intake and Output 10/11/23 10/12/23 10/12/23 22:59 06:59 14:59 Intake Total 654.246 905.93 Output Total 175 270 Balance 479.246 635.93 Intake: IV 390 580 Dextrose 5% in Water 1, 450 000 ml @ 75 mls/hr IV . [id number] [facility] Rx#:[id number] Sodium Chloride 0.9% 1, 390 130 000 ml @ 130 mls/hr IV . [id number] [facility] Rx#:[id number] Intake, IV Titration 264.246 325.93 Amount Midazolam HCl 50 mg In 65.917 49.25 Sodium Chloride 0.9% 40 ml @ 1 MG/HR 1 mls/hr IV .Q24H [facility] Rx#:[id number] levETIRAcetam IV 1,500 mg 100 In Sodium Chloride 0.9% 250 ml @ 1000 mls/hr IVPB BID [facility] Rx#:[id number] propofoL 1,000 mg In 98.329 276.68 Empty Bag 1 bag @ 15 MCG/ KG/MIN 9.389 mls/hr IV . [id number] [facility] Rx#:[id number] Output: Urine 175 270 Other: Voiding Method Indwelling Catheter Indwelling Catheter # Bowel Movements 0 Weight 102.5 kg Results - Lab Results Most recent lab results ABG pH 7.29 (7.35-7.45) L 10/12/23 06:25 ABG pCO2 40 mmHg (35-45) 10/12/23 06:25 ABG pO2 99 mmHg (83-108) 10/12/23 06:25 ABG HCO3 19 mmol/L (21-25) L 10/12/23 06:25 ABG O2 Saturation 97.9 % (94-97) H 10/12/23 06:25 Calcium 8.9 mg/dL (8.4-10.2) 10/12/23 04:04 Phosphorus 2.0 mg/dL (2.4-5.1) L 10/11/23 10:23 Magnesium 2.1 mg/dL (1.5-2.4) 10/11/23 10:23 10/12/23 04:04 10/12/23 04:04 Assessment and Plan Plan: Assessment: 1. Acute kidney injury secondary to ATN. Dewy Rose level not high. Rule out rhabdomyolysis. Creatinine 1.51 today. Baseline creatinine 0.8-0.9. 2. Suicide attempt. She took multiple medications including Benadryl and Lamictal. 3. Seizures. 4. Metabolic acidosis secondary to acute kidney injury, IV fluids. Can also be from lactic acidosis from seizures. 5. Bipolar disorder. 6. Hypernatremia from lack oral water intake. Patient not polyuric.urina Plan: Increase rate of D5W. Patient also scheduled to receive amp of bicarb IV push. Repeat BMP this evening. Check CPK level. Follow-up Lamictal level. Continue to monitor renal function and urine output. Check UA. Check renal ultrasound. Thank you for the consultation. I will continue to follow this patient with you during her hospital stay.
--- NOTE | 2023-10-12 10:44 | EEG ---
ELECTROENCEPHALOGRAM REPORT PREAMBLE: This is a 23-year-old female who has bipolar disorder, anxiety, depression, and came with suicide attempt. The patient has developed seizures. This study is performed to rule out any status epilepticus. EEG FINDINGS: This is a 21-channel digital EEG recorded with video component, utilizing 10/20 international system with referential and bipolar montages. Background consists of the recording starts with the presence of moderate amplitude, fairly well regulated, 8 hertz alpha, superimposed on 1 to 2 hertz delta activity in bihemispheric region. Frequent fast frequency beta activity was also seen. Some sleep spindles were also seen during the study. Photic driving response was not seen. During middle part of the study, the propofol that was running at 50 mcg/kg per minute was turned off, and thereafter the patient developed more increase generalized moderate to high amplitude rhythmic delta activity in bihemispheric region, during which time, the technicians noted her pupils were dilating and constricting. Later it was also noticed, the patient was started having some slow periodic contraction of her arms in the trunk during this rhythmic high amplitude delta activity. No epileptic focus; however, was seen. No electrographic seizure was recorded. IMPRESSION: This is an abnormal EEG due to background slowing of moderate to severe degree, suggestive of generalized cerebral dysfunction as can be seen with toxic metabolic encephalopathy or related to medication effect. When the propofol was discontinued, the activity became more rhythmic, high amplitude, delta slowing in 2 hertz, during which the patient's pupils were constricting and dilating, and later also started having some slow body contractions. This may indicate convulsive tendency. Consider prolonged EEG for further evaluation. MMODL / IJN: [id number] /
[2023-10-12] MEDS ORDERED: DEXTROSE 5% IN WATER 500 ML IV ONE (10:56)
--- NOTE | 2023-10-12 11:37 | OP ---
OPERATIVE REPORT DATE OF SERVICE : PROCEDURE PERFORMED: Placement of a right radial arterial line. PREOPERATIVE DIAGNOSES: Multiple drugs overdose, intermittent seizures. POSTOPERATIVE DIAGNOSES: Multiple drugs overdose, intermittent seizures. INDICATION: Hemodynamic monitoring and intermittent frequent blood draws. DESCRIPTION OF PROCEDURE: The patient was placed in a supine position, the right wrist was prepared in a sterile fashion and drapes were applied. The right radial artery was palpated, easily cannulated, and a guidewire was placed. A Cook's catheter was inserted over the guidewire, and the guidewire was removed. Good blood flow and good waveform noted, line was secured using 3.0 silk sutures, no complications. MMODL / IJN: [id number] /
[2023-10-12 12:12] LABS: Glucose,Whole Blood 97 mg/dL (70-110)
[2023-10-12 12:32] LABS: Amorphous Sediment,Urine Occasional /hpf; Appearance,Urine Turbid (Clear); Bacteria,Urine Many /hpf; Bilirubin,Urine Negative (Negative); Blood,Urine Large (Negative); Glucose,Urine (UA) Negative (Negative); Hyaline Casts,Urine 55 /lpf (0-2); Ketones,Urine 1+ (Negative); Leukocyte Esterase,Urine Negative (Negative); Mucus,Urine Rare /hpf; Nitrite,Urine Negative (Negative); PH, Urine 5.5 (5.0-8.0); Protein,Urine 2+ (Negative); RBC,Urine 3 /hpf (0-5); Squamous Epithelial Cell,Urine 3 /hpf (0-4); Urobilinogen,Urine <2.0 mg/dL (<2.0); WBC,Urine 94 /hpf (0-5)
[2023-10-12 12:47] LABS: Color,Urine Light Brown
--- NOTE | 2023-10-12 13:18 | US ---
EXAMINATION TYPE: US kidneys/renal and bladder DATE OF EXAM: 10/12/2023 COMPARISON: 11/20/2026 CLINICAL INDICATION: Female, 23 years old with history of tim; Patient is intubated and unresponsive EXAM MEASUREMENTS: Right Kidney: 10.1 x 5.4 x 5.6 cm Left Kidney: 13.3 x 6.3 x 4.9 cm Post Void Residual Volume: Not able to assess mL Right Kidney: No hydronephrosis or masses seen Left Kidney: No hydronephrosis or masses seen Bladder: Not distended; ochoa noted within Bilateral Jets seen: not able to assess Normal Post Void Residual: not able to assess There is no evidence for hydronephrosis at this point in time. No nephrolithiasis is seen. No zhanna s are identified. IMPRESSION: No evidence for obstructive uropathy.
[2023-10-12] MEDS ORDERED: DEXTROSE 5% IN WATER 1,000 ML IV SCH (14:00)
--- NOTE | 2023-10-12 14:03 | P.CNPUL ---
History of Present Illness Consult date: 10/12/23 Requesting physician: Nissa Orozco Reason for consult: other (Multiple drugs overdose) Chief complaint: Suicide attempt with overdose on multiple drugs, as per family members History of present illness: This is a 23-year-old female with known history of bipolar disorder, depression, previous history of suicidal attempts, patient was brought into the ER on 10/09/23 at 6:3 0 p.m. and apparently the patient ingested an unknown amount of lamotrigine 100 mg, buspirone, Benadryl, Sumatriptan, and lithium and apoquel. While in the ER, the patient was noted to be initially stable, and she was seen by many consultants while in the ER including psychiatry. Patient went on to develop worsening symptoms of psychosis, involuntary muscle movements, possible seizures, and the first time I knew about this patient was early evening yesterday when the admitting physician Dr. Orozco called me , and the patient was requiring significant amount of benzodiazepines to keep her calm. Shortly after I talked over the phone, patient was intubated and she was having intermittent seizures. Patient was sent to the ICU, she was placed on Versed drip at 15 mg per hour and propofol at 50 mcg/kg/m. Neurology who have ready seen the patient, loaded her with Keppra, and the patient was kept intubated and mechanically ventilated overnight. No further seizures were noted. Patient is now on assist control rate of 18 tidal volume 450 FiO2 40% and PEEP of 5 ABG showed a pO2 of 99 pCO2 40 pH of 7.29. When the patient was intubated yesterday, I have recommended adjustment of the endotracheal tube because it was initially in the right mainstem bronchus, and this was done shortly after. Apparently was in control was aware of this patient, and the recommendation was mostly treatment with benzodiazepines. And no other specific treatment was recommended. This morning the patient remains on propofol at 50 mg/kg/m and on Versed 15 mg/h she is on IV fluid at 75 mL per hour in the form of D5W. Her CT of the brain and EEG are negative so far. Her urine output is about 40 mL per hour. Patient received 1 amp of bicarbonate earlier for acidosis/metabolic acidosis and my plan is to taper down Versed hopefully discontinue Versed today, and keep the patient on propofol. In the meantime I went ahead and established right radial arterial line in this patient she has enough IV access for the time being, does not require a central line placement. Chest x-ray showed adequate placement of the endotracheal tube and some left sided infiltrates atelectasis most likely secondary to the fact that the endotracheal tube was in the right mainstem bronchus when the patient was in the ER. Her basic metabolic profile is normal except sodium is 148 potassium 3.8 bicarbonate 17 BUN is 14 and creatinine is up to 1.51, and that being addressed by nephrology on the case. WBC count is 11.5 hemoglobin is 12.0. Platelets are normal however the patient seems to have developed significantly elevated CPK with 74,970, and I believe that is probably a picture of rhabdomyolysis from her seizures yesterday, and she developing acute kidney injury from rhabdomyolysis Review of Systems ROS unobtainable: due to endotracheal tube Past Medical History Past Medical History: GERD/Reflux, Skin Disorder Additional Past Medical History / Comment(s): Irritable bowel syndrome, previous Tylenol overdose with acute liver damage, over dose x2. Hill, pnumonia, strep, toncillectomy, migranes, bulimia History of Any Multi-Drug Resistant Organisms: None Reported Past Surgical History: Adenoidectomy, Tonsillectomy Additional Past Surgical History / Comment(s): wisdom teeth removal Past Anesthesia/Blood Transfusion Reactions: No Reported Reaction Past Psychological History: Anxiety, Bipolar, Depression, PTSD Additional Psychological History / Comment(s): Borderline personality disorder Smoking Status: Current every day smoker Past Alcohol Use History: Occasional Additional Past Alcohol Use History / Comment(s): Patient smokes an occasional cigar. She occasionally drinks wine. She uses marijuana on occasion. She denies any other street drug use. She denies any previous pregnancies and does not have any children. Past Drug Use History: Marijuana - Past Family History Father Family Medical History: Diabetes Mellitus, Hypertension Additional Family Medical History / Comment(s): Father is alive with history of diabetes Mother Family Medical History: Hypertension, Thyroid Disorder Additional Family Medical History / Comment(s): Mother is alive with a history of diabetes, hypothyroidism, myocardial infarction, stroke Sister(s) Additional Family Medical History / Comment(s): Patient has 3 sisters with no major medical problems. Patient does not have any brothers. Medications and Allergies Home Medications Medication Instructions Recorded Confirmed Type Ibuprofen [Motrin] 800 mg PO Q8H PRN 10/09/23 10/09/23 History Downs Carbonate [Downs 300 mg PO BID 10/09/23 10/09/23 History Carbonate ER] Omeprazole [PriLOSEC] 20 mg PO DAILY 10/09/23 10/09/23 History SUMAtriptan succinate 100 mg PO BID PRN 10/09/23 10/09/23 History busPIRone HCl [Buspar] 5 mg PO BID 10/09/23 10/09/23 History diphenhydrAMINE [Benadryl] 25 mg PO QID PRN 10/09/23 10/09/23 History lamoTRIgine [lamoTRIgine ER] 300 mg PO DAILY 10/09/23 10/09/23 History Allergies Allergy/AdvReac Type Severity Reaction Status Date / Time amoxicillin Allergy Anaphylaxis Verified 10/09/23 20:19 Penicillins Allergy Anaphylaxis Verified 10/09/23 20:19 acetaminophen [From Tylenol] AdvReac Nausea & Verified 10/09/23 20:19 Vomiting Physical Exam Vitals: Vital Signs Temp Pulse Pulse Resp BP BP Pulse Ox 10/12/23 12:42 10/12/23 12:00 37.1 F L 90 28 H 125/67 97 10/12/23 11:00 92 18 134/79 96 10/12/23 10:00 92 18 137/65 96 10/12/23 09:41 10/12/23 09:00 93 18 134/68 96 10/12/23 08:00 98.6 F 95 19 133/66 95 10/12/23 05:00 89 22 122/63 94 L 10/12/23 04:00 98.8 F 96 24 124/69 95 10/12/23 03:16 10/12/23 03:00 96 25 H 121/64 95 10/12/23 02:00 92 26 H 122/65 95 10/12/23 01:00 94 27 H 123/74 94 L 10/12/23 00:31 10/12/23 00:00 98.6 F 95 27 H 110/64 95 10/11/23 23:33 98.2 F 94 18 110/64 95 10/11/23 23:11 96 29 H 102/63 95 10/11/23 23:07 10/11/23 23:00 88 25 H 105/65 97 10/11/23 22:20 99 18 105/65 10/11/23 22:00 99 12 108/60 91 L 10/11/23 21:40 104 H 25 H 112/62 100 10/11/23 21:20 97 23 112/56 10/11/23 21:00 97 18 109/61 93 L 10/11/23 20:40 98 19 108/60 94 L 10/11/23 20:20 97 19 109/57 94 L 10/11/23 20:00 98.2 F 101 H 18 113/59 94 L 10/11/23 19:50 10/11/23 19:40 98 18 109/56 94 L 10/11/23 19:20 101 H 18 109/57 100 10/11/23 19:00 134 H 51 H 125/71 10/11/23 18:45 121 H 21 171/85 97 10/11/23 17:49 10/11/23 17:20 102 F H 120 H 32 H 124/66 98 10/11/23 17:10 151 H 32 H 136/54 99 10/11/23 16:57 10/11/23 16:55 147 H 32 H 201/99 99 10/11/23 16:45 126 H 45 H 129/66 99 10/11/23 16:44 10/11/23 14:00 115 H 23 152/83 95 FiO2 10/12/23 12:42 40 10/12/23 12:00 10/12/23 11:00 10/12/23 10:00 10/12/23 09:41 40 10/12/23 09:00 10/12/23 08:00 40 10/12/23 05:00 10/12/23 04:00 40 10/12/23 03:16 40 10/12/23 03:00 10/12/23 02:00 10/12/23 01:00 10/12/23 00:31 40 10/12/23 00:00 40 10/11/23 23:33 40 10/11/23 23:11 10/11/23 23:07 40 10/11/23 23:00 40 10/11/23 22:20 10/11/23 22:00 10/11/23 21:40 10/11/23 21:20 10/11/23 21:00 10/11/23 20:40 10/11/23 20:20 10/11/23 20:00 50 10/11/23 19:50 50 10/11/23 19:40 10/11/23 19:20 10/11/23 19:00 10/11/23 18:45 10/11/23 17:49 50 10/11/23 17:20 10/11/23 17:10 10/11/23 16:57 100 10/11/23 16:55 10/11/23 16:45 10/11/23 16:44 100 10/11/23 14:00 Intake and Output 10/11/23 10/12/23 10/12/23 22:59 06:59 14:59 Intake Total 654.246 905.93 341.442 Output Total 175 270 140 Balance 479.246 635.93 201.442 Intake: IV 390 580 325 Dextrose 5% in Water 1, 450 325 000 ml @ 100 mls/hr IV . Q10H [facility] Rx#:[id number] Sodium Chloride 0.9% 1, 390 130 000 ml @ 130 mls/hr IV . Q7H42M [facility] Rx#:[id number] Intake, IV Titration 264.246 325.93 16.442 Amount Midazolam HCl 200 mg In 16.442 Sodium Chloride 0.9% 60 ml @ 1 MG/HR 0.5 mls/hr IV .Q24H [facility] Rx#: [id number] Midazolam HCl 50 mg In 65.917 49.25 Sodium Chloride 0.9% 40 ml @ 1 MG/HR 1 mls/hr IV .Q24H [facility] Rx#:[id number] levETIRAcetam IV 1,500 mg 100 In Sodium Chloride 0.9% 250 ml @ 1000 mls/hr IVPB BID [facility] Rx#:[id number] propofoL 1,000 mg In 98.329 276.68 Empty Bag 1 bag @ 15 MCG/ KG/MIN 9.389 mls/hr IV . [id number] [facility] Rx#:[id number] Output: Urine 175 270 140 Other: Voiding Method Indwelling Catheter Indwelling Catheter Indwelling Catheter # Bowel Movements 0 Weight 102.5 kg 102.5 kg ABP, PAP, CO, CI - Last 8 Hours Arterial Blood Pressure 138/63 Arterial Blood Pressure 140/64 Physical Exam: Revealed 23-year-old female, obese, sedated, intubated, not in distress Head: Atraumatic normocephalic. HEENT:[Neck is supple.] [No neck masses.] [No thyromegaly.] [No JVD.] Endotracheal tube and orogastric tubes are intact Chest: [Clear throughout, no crackles, no rhonchi, no wheezes.] Cardiac Exam: [Normal S1 and S2, no S3 gallop, no murmur.] Abdomen: [Obese, Soft, nontender, no megaly, no rebound, no guarding, normal bowel sounds.] Extremities: [No clubbing, no edema, no cyanosis.] Good pulses bilaterally. Neurological Exam: Could not assess fully, patient is on Versed and propofol, she withdraws mostly to deep painful stimuli noted only as I was placing an arterial line and when IV access was being established by the nurse. Psychiatric: Could not assess Skin: Multiple tattoos, no rashes Results - Laboratory Findings CBC and BMP: 10/12/23 04:04 10/12/23 04:04 ABG ABG pH 7.29 (7.35-7.45) L 10/12/23 06:25 ABG pCO2 40 mmHg (35-45) 10/12/23 06:25 ABG pO2 99 mmHg (83-108) 10/12/23 06:25 ABG O2 Saturation 97.9 % (94-97) H 10/12/23 06:25 PT/INR, D-dimer PT 10.9 sec (10.0-12.5) 10/10/23 18:00 INR 1.0 (<1.2) 10/10/23 18:00 Abnormal lab findings: Abnormal Labs 10/09/23 10/09/23 10/10/23 21:17 22:43 18:00 WBC Hgb Hct RDW Immature Gran # Eosinophils # ABG pH ABG pO2 ABG HCO3 ABG O2 Saturation Sodium Potassium 3.1 L Chloride 110 H Carbon Dioxide 21 L 19 L Anion Gap BUN Creatinine BUN/Creatinine Ratio Glucose 129 H 120 H Phosphorus 2.0 L AST ALT Creatine Kinase Total Protein Urine Appearance Urine Protein Urine Ketones Urine Blood Urine WBC Urine WBC Clumps Amorphous Sediment Urine Bacteria Hyaline Casts Urine Mucus U Marijuana (THC) Screen Detected H 10/11/23 10/11/23 10/11/23 10:23 10:23 17:33 WBC Hgb 11.7 L Hct 35.6 L RDW 14.8 H Immature Gran # 0.06 H Eosinophils # 0 L ABG pH 7.30 L ABG pO2 ABG HCO3 20 L ABG O2 Saturation 97.2 H Sodium 146 H Potassium Chloride 114 H Carbon Dioxide 17.3 L Anion Gap 14.70 H BUN 6.9 L Creatinine BUN/Creatinine Ratio 7.67 L Glucose Phosphorus 2.0 L AST 50 H ALT Creatine Kinase Total Protein Urine Appearance Urine Protein Urine Ketones Urine Blood Urine WBC Urine WBC Clumps Amorphous Sediment Urine Bacteria Hyaline Casts Urine Mucus U Marijuana (THC) Screen 10/11/23 10/11/23 10/12/23 21:47 23:03 04:04 WBC 11.5 H Hgb Hct RDW Immature Gran # Eosinophils # ABG pH 7.31 L ABG pO2 123 H ABG HCO3 19 L ABG O2 Saturation 98.7 H Sodium 148 H Potassium Chloride 114 H Carbon Dioxide 16 L Anion Gap BUN Creatinine 1.21 H BUN/Creatinine Ratio Glucose Phosphorus AST 429 H ALT 78 H Creatine Kinase Total Protein Urine Appearance Urine Protein Urine Ketones Urine Blood Urine WBC Urine WBC Clumps Amorphous Sediment Urine Bacteria Hyaline Casts Urine Mucus U Marijuana (THC) Screen 10/12/23 10/12/23 10/12/23 04:04 04:04 06:25 WBC Hgb Hct RDW Immature Gran # Eosinophils # ABG pH 7.29 L ABG pO2 ABG HCO3 19 L ABG O2 Saturation 97.9 H Sodium 148 H Potassium Chloride 116 H Carbon Dioxide 17 L Anion Gap BUN Creatinine 1.51 H BUN/Creatinine Ratio Glucose 72 L Phosphorus AST 546 H ALT 99 H Creatine Kinase 46218 H* Total Protein 6.2 L Urine Appearance Urine Protein Urine Ketones Urine Blood Urine WBC Urine WBC Clumps Amorphous Sediment Urine Bacteria Hyaline Casts Urine Mucus U Marijuana (THC) Screen 10/12/23 12:13 WBC Hgb Hct RDW Immature Gran # Eosinophils # ABG pH ABG pO2 ABG HCO3 ABG O2 Saturation Sodium Potassium Chloride Carbon Dioxide Anion Gap BUN Creatinine BUN/Creatinine Ratio Glucose Phosphorus AST ALT Creatine Kinase Total Protein Urine Appearance Turbid H Urine Protein 2+ H Urine Ketones 1+ H Urine Blood Large H Urine WBC 94 H Urine WBC Clumps Many H Amorphous Sediment Occasional H Urine Bacteria Many H Hyaline Casts 55 H Urine Mucus Rare H U Marijuana (THC) Screen - Diagnostic Findings Chest x-ray: image reviewed (As noted in HPI) Assessment and Plan Assessment: Impression: Acute hypoxic respiratory failure secondary to drug overdose, multiple drugs, mostly with excessive anticholinergic symptoms Suicidal ideation and suicidal attempt History of bipolar disorder, and depression Acute rhabdomyolysis Acute seizure disorder secondary to multiple drugs overdose \ acute kidney injury secondary to ATN and rhabdomyolysis with significantly elevated CPK Acute metabolic acidosis secondary to kidney injury and secondary to seizures Hypovolemic hypernatremia Recommendation: Continue ventilatory support Continue Versed and propofol however would like the patient to be hopefully on propofol alone and set of both at the same time. Will start the tapering of Versed and possibly discontinue today Continue Keppra Continue seizure precautions Continue IV fluids in the form of D5W at 150 mL per hour 1 amp of bicarb was given earlier today Repeat ABG this afternoon and address accordingly Continue GI and DVT prophylaxis Discontinue Seroquel for now until the patient is about to be extubated Start enteral feeding/nutritional support Reconsult psychiatry after the patient is extubated We will continue to follow Patient is a critically ill Updated her mother on her condition We will continue to follow Time with Patient: Greater than 30
--- NOTE | 2023-10-12 15:18 | P.PN ---
Subjective Progress Note Date: 10/12/23 23-year-old female came in the with the concerns of overdose patient was attempting suicide as per the family members. Patient to these medications approximately 9:52 PM on October 08 which was couple days ago patient was okay when she came in started getting worse started getting agitated drowsy and was subsequently admitted to the medicine service because of that reason. Patient the was found to have 2 bottles of Lamictal 100 mg, buspirone, diphenhydramine, sumatriptan, 6 lithium the patient is presently agitated, having muscle spasms horizontal nystagmus all of which are consistent with anticholinergic side effects can be secondary to sumatriptan overdose. Patient is receiving Valium at this time will add Ativan at an as-needed basis as well. Patient is getting IV fluids at 1 50 mL per hour patient had nausea vomiting unable to tolerate any oral medications and activated charcoal. Patient is completely confused at this time. EKG did not show any QT prolongation. 10/12/2023 Patient was seen in follow up today admitted to the intensive care unit. Currently intubated and sedated with FiO2 of 40%, patient was intubated for airway protection. Was having seizure like activity suspected. EEG shows background slowing of moderate to severe degree suggestive generalized cerebral dysfunction as seen with toxic metabolic encephalopathy or related to medication effect. When the propofol was discontinued the activity became more rhythmic high amplitude delta slowing and 2 Hz during which the patient's pupils are strict and dilating and also started having some slow body contractions. This may indicate convulsive tendency. Consider for prolonged EEG for further evaluation. Remains on IV valium, IVP keppra, IV versed running at 4.5 mls/hr, she is sedated with propofol. Her labs today are showing sodium 148, potassium 3.8, BUN 14, creatinine 1.51. AST/ALT elevated, creatine kinase 81384. REVIEW OF SYSTEMS: Unable to complete at this time patient is sedated and intubated in the ICU PHYSICAL EXAMINATION: GENERAL: Patient is sedated and intubated at this time. HEENT: Pupils are round and equally reacting to light. EOMI. No scleral icterus. No conjunctival pallor. Normocephalic, atraumatic. No pharyngeal erythema. No thyromegaly. CARDIOVASCULAR: S1 and S2 present. No murmurs, rubs, or gallops. PULMONARY: Chest is clear to auscultation, no wheezing or crackles. ABDOMEN: Soft, nontender, nondistended, normoactive bowel sounds. No palpable organomegaly. MUSCULOSKELETAL: No joint swelling or deformity. EXTREMITIES: No cyanosis, clubbing, or pedal edema. NEUROLOGICAL: Sedated. SKIN: No rashes. Assessment and plan -Drug overdose mostly due to Benadryl and sumatriptan lithium and lamictal; patients levels were normal. Lamictal level is pending at this time. Patient is presently having anticholinergic side effects having myoclonus and concern for seizure like activity and patient was intubated and sedated currently in the intensive care unit. May require prolonged EEG pending clinical course. For now patient will remain on IV versed and valium. Patient will be continued on keppra. -Acute hypoxic respiratory failure from the overdose requiring Mechanical ventilator monitoring -hyperkalemia: Natriuretic hypokalemia, replace potassium -Suicidal ideation and suicide attempt: Psychiatry evaluated the patient does meet need for IP placement when medically stable. -Horizontal nystagmus secondary to anticholinergic side effects, supportive care continue with the Valium and Ativan. -Acute rhabdomyolysis with elevated creatine kinase recommend to monitor LFTS/INR twice a day to monitor for fulminant hepititis from lamictal toxicity if levels continue to elevate with evidence of liver failure patient would need to be transferred out at that time. -Acute kidney injury secondary to acute tubular necrosis and the rhabdo, nephrology has been consulted for monitoring patient will be hydrated and monitor levels daily -Bipolar disorder and depression -Nicotine use DVT prophylaxis: Lovenox Gi prophylaxis: Pepcid Full Code Patients family at the bedside updated on plan of care more than 35 minutes spent in coordination of care. The impression and plan of care has been dictated by Shu Mccoy Nurse Practitioner as directed. Dr. Pam MD I have performed a history and physical examination and medical decision making of this patient, discussed the same with the dictator, and agree with the dictators assessment and plan as written, documented as a scribe. Based on total visit time, I have performed more than 50% of this visit. Objective - Vital Signs Vital signs: Vital Signs Temp 37.1 F L 10/12/23 12:00 Pulse 90 10/12/23 12:00 Resp 28 H 10/12/23 12:00 BP 125/67 10/12/23 12:00 Pulse Ox 97 10/12/23 12:00 FiO2 40 10/12/23 09:41 Intake & Output 10/11/23 10/12/23 10/12/23 18:59 06:59 18:59 Intake Total 14.210 1545.966 341.442 Output Total 445 140 Balance 14.210 1100.966 201.442 Weight 102.5 kg 102.5 kg Intake: IV 970 325 Dextrose 5% in Water 1, 450 325 000 ml @ 100 mls/hr IV . Q10H [facility] Rx#:[id number] Sodium Chloride 0.9% 1, 520 000 ml @ 130 mls/hr IV . Q7H42M [facility] Rx#:[id number] Intake, IV Titration 14.210 575.966 16.442 Amount Midazolam HCl 200 mg In 16.442 Sodium Chloride 0.9% 60 ml @ 1 MG/HR 0.5 mls/hr IV .Q24H [facility] Rx#: [id number] Midazolam HCl 50 mg In 7.167 108.00 Sodium Chloride 0.9% 40 ml @ 1 MG/HR 1 mls/hr IV .Q24H [facility] Rx#:[id number] levETIRAcetam IV 1,500 mg 100 In Sodium Chloride 0.9% 250 ml @ 1000 mls/hr IVPB BID [facility] Rx#:[id number] propofoL 1,000 mg In 7.043 367.966 Empty Bag 1 bag @ 15 MCG/ KG/MIN 9.389 mls/hr IV . [id number] [facility] Rx#:[id number] Output: Urine 445 140 Other: Voiding Method Indwelling Catheter Indwelling Catheter # Bowel Movements 0 ABP, PAP, CO, CI - Last Documented Arterial Blood Pressure 138/63 - Labs CBC & Chem 7: 10/12/23 04:04 10/12/23 04:04 Labs: Abnormal Lab Results - Last 24 Hours (Table) 10/11/23 10/11/23 10/11/23 Range/Units 10: 10: 17:33 WBC (3.8-10.6) k/uL Hgb 11.7 L (12.0-15.0) g/dL Hct 35.6 L (37.2-46.3) % RDW 14.8 H (11.5-14.5) % Immature Gran # 0.06 H (0.00-0.04) X 10*3/uL Eosinophils # 0 L (0.04-0.35) X 10*3/uL ABG pH 7.30 L (7.35-7.45) ABG pO2 (83-108) mmHg ABG HCO3 20 L (21-25) mmol/L ABG O2 Saturation 97.2 H (94-97) % Sodium 146 H (135-145) mmol/L Chloride 114 H (96-109) mmol/L Carbon Dioxide 17.3 L (21.6-31.8) mmol/L Anion Gap 14.70 H (4.00-12.00) mmol/L BUN 6.9 L (9.0-27.0) mg/dL Creatinine (0.52-1.04) mg/dL BUN/Creatinine Ratio 7.67 L (12.00-20.00) Ratio Glucose (74-99) mg/dL Phosphorus 2.0 L (2.4-5.1) mg/dL AST 50 H (13-35) U/L ALT (4-34) U/L Creatine Kinase (30-135) U/L Total Protein (6.3-8.2) g/dL 10/11/23 10/11/23 10/12/23 Range/Units 21:47 23:03 04:04 WBC 11.5 H (3.8-10.6) k/uL Hgb (12.0-15.0) g/dL Hct (37.2-46.3) % RDW (11.5-14.5) % Immature Gran # (0.00-0.04) X 10*3/uL Eosinophils # (0.04-0.35) X 10*3/uL ABG pH 7.31 L (7.35-7.45) ABG pO2 123 H (83-108) mmHg ABG HCO3 19 L (21-25) mmol/L ABG O2 Saturation 98.7 H (94-97) % Sodium 148 H (135-145) mmol/L Chloride 114 H (96-109) mmol/L Carbon Dioxide 16 L (21.6-31.8) mmol/L Anion Gap (4.00-12.00) mmol/L BUN (9.0-27.0) mg/dL Creatinine 1.21 H (0.52-1.04) mg/dL BUN/Creatinine Ratio (12.00-20.00) Ratio Glucose (74-99) mg/dL Phosphorus (2.4-5.1) mg/dL AST 429 H (13-35) U/L ALT 78 H (4-34) U/L Creatine Kinase (30-135) U/L Total Protein (6.3-8.2) g/dL 10/12/23 10/12/23 10/12/23 Range/Units 04:04 04:04 06:25 WBC (3.8-10.6) k/uL Hgb (12.0-15.0) g/dL Hct (37.2-46.3) % RDW (11.5-14.5) % Immature Gran # (0.00-0.04) X 10*3/uL Eosinophils # (0.04-0.35) X 10*3/uL ABG pH 7.29 L (7.35-7.45) ABG pO2 (83-108) mmHg ABG HCO3 19 L (21-25) mmol/L ABG O2 Saturation 97.9 H (94-97) % Sodium 148 H (135-145) mmol/L Chloride 116 H (96-109) mmol/L Carbon Dioxide 17 L (21.6-31.8) mmol/L Anion Gap (4.00-12.00) mmol/L BUN (9.0-27.0) mg/dL Creatinine 1.51 H (0.52-1.04) mg/dL BUN/Creatinine Ratio (12.00-20.00) Ratio Glucose 72 L (74-99) mg/dL Phosphorus (2.4-5.1) mg/dL AST 546 H (13-35) U/L ALT 99 H (4-34) U/L Creatine Kinase 48904 H* (30-135) U/L Total Protein 6.2 L (6.3-8.2) g/dL Assessment and Plan Time with Patient: Greater than 30
[2023-10-12] MEDS ORDERED: POTASSIUM BICARBONATE/CIT AC 20 MEQ TABLET.EFF PO ONE (15:37)
[2023-10-12] MEDS: FAMOTIDINE 20 MG/2 ML VIAL IV SCH (15:43)
[2023-10-12 17:28] LABS: Glucose,Whole Blood 114 mg/dL (70-110)
[2023-10-12 18:09] LABS: African American GFR (CKD) 41 (>60 ml/min/1.73 sqM); Anion Gap 13 mmol/L; Blood Urea Nitrogen 17 mg/dL (7-17); Calcium 8.8 mg/dL (8.4-10.2); Carbon Dioxide 19 mmol/L (22-30); Chloride 108 mmol/L (98-107); Glucose 113 mg/dL (74-99); Non-African American GFR(CKD) 36 (>60 ml/min/1.73 sqM); Potassium 3.4 mmol/L (3.5-5.1); Sodium 140 mmol/L (137-145)
[2023-10-12] MEDS ORDERED: SODIUM CHLORIDE 0.9% 1,000 ML IV ONE (18:12)
[2023-10-12] MEDS: SODIUM CHLORIDE 0.9% 1,000 ML IV SCH (18:32)
[2023-10-12] MEDS: POTASSIUM BICARBONATE/CIT AC 20 MEQ TABLET.EFF PO SCH ×2 (18:58→20:02)
--- NOTE | 2023-10-12 19:10 | P.PN ---
Subjective Progress Note Date: 10/12/23 Patient since last seen in the ER, developed conversions for which she was started on Versed drip. Patient was intubated for mechanical ventilation in the ER and then transferred to ICU. In order to control the conversions, patient was placed on high dose Versed 15 mg per hour and propofol 50 mcg/mg per minute. I had been in touch with the nursing staff multiple times on the phone about seizure management. Patient was given loading dose of Keppra 1500 mg and maintained on Keppra 1500 mg twice a day. Since this morning, the Versed drip has been decreased gradually down to 9 mg per hour. She is still on propofol at the same dose as mentioned above. Patient's family members were present today. Patient probably overdosed on Lamictal, Imitrex, ibuprofen, Benadryl, BuSpar. Exact amount of medications uncertain. Objective - Vital Signs Vital signs: Vital Signs Temp 37.1 F L 10/12/23 12:00 Pulse 90 10/12/23 12:00 Resp 28 H 10/12/23 12:00 BP 125/67 10/12/23 12:00 Pulse Ox 97 10/12/23 12:00 FiO2 40 10/12/23 12:42 Intake & Output 10/11/23 10/12/23 10/12/23 18:59 06:59 18:59 Intake Total 14.210 1545.966 341.442 Output Total 445 140 Balance 14.210 1100.966 201.442 Weight 102.5 kg 102.5 kg Intake: IV 970 325 Dextrose 5% in Water 1, 450 325 000 ml @ 100 mls/hr IV . Q10H ONE Rx#:[id number] Sodium Chloride 0.9% 1, 520 000 ml @ 130 mls/hr IV . Q7H42M [facility] Rx#:[id number] Intake, IV Titration 14.210 575.966 16.442 Amount Midazolam HCl 200 mg In 16.442 Sodium Chloride 0.9% 60 ml @ 1 MG/HR 0.5 mls/hr IV .Q24H [facility] Rx#: [id number] Midazolam HCl 50 mg In 7.167 108.00 Sodium Chloride 0.9% 40 ml @ 1 MG/HR 1 mls/hr IV .Q24H [facility] Rx#:[id number] levETIRAcetam IV 1,500 mg 100 In Sodium Chloride 0.9% 250 ml @ 1000 mls/hr IVPB BID [facility] Rx#:[id number] propofoL 1,000 mg In 7.043 367.966 Empty Bag 1 bag @ 15 MCG/ KG/MIN 9.389 mls/hr IV . [id number] [facility] Rx#:[id number] Output: Urine 445 140 Other: Voiding Method Indwelling Catheter Indwelling Catheter # Bowel Movements 0 ABP, PAP, CO, CI - Last Documented Arterial Blood Pressure 138/63 - Exam Patient at present is intubated, on mechanical ventilation, sedated on Versed drip 9 mg/h, and propofol 50 mcg/kg per minute. Patient's pupils are about 4 mm, minimally reacting. Oculocephalics are absent. Patient not responding to painful stimuli, due to medication effect. - Labs CBC & Chem 7: 10/12/23 04:04 10/12/23 17:30 Labs: Abnormal Lab Results - Last 24 Hours (Table) 10/11/23 10/11/23 10/11/23 Range/Units 10:23 10: 17:33 WBC (3.8-10.6) k/uL Hgb 11.7 L (12.0-15.0) g/dL Hct 35.6 L (37.2-46.3) % RDW 14.8 H (11.5-14.5) % Immature Gran # 0.06 H (0.00-0.04) X 10*3/uL Eosinophils # 0 L (0.04-0.35) X 10*3/uL ABG pH 7.30 L (7.35-7.45) ABG pO2 (83-108) mmHg ABG HCO3 20 L (21-25) mmol/L ABG O2 Saturation 97.2 H (94-97) % Sodium 146 H (135-145) mmol/L Chloride 114 H (96-109) mmol/L Carbon Dioxide 17.3 L (21.6-31.8) mmol/L Anion Gap 14.70 H (4.00-12.00) mmol/L BUN 6.9 L (9.0-27.0) mg/dL Creatinine (0.52-1.04) mg/dL BUN/Creatinine Ratio 7.67 L (12.00-20.00) Ratio Glucose (74-99) mg/dL Phosphorus 2.0 L (2.4-5.1) mg/dL AST 50 H (13-35) U/L ALT (4-34) U/L Creatine Kinase (30-135) U/L Total Protein (6.3-8.2) g/dL Urine Appearance (Clear) Urine Protein (Negative) Urine Ketones (Negative) Urine Blood (Negative) Urine WBC (0-5) /hpf Urine WBC Clumps (None) /hpf Amorphous Sediment (None) /hpf Urine Bacteria (None) /hpf Hyaline Casts (0-2) /lpf Urine Mucus (None) /hpf 10/11/23 10/11/23 10/12/23 Range/Units 21:47 23:03 04:04 WBC 11.5 H (3.8-10.6) k/uL Hgb (12.0-15.0) g/dL Hct (37.2-46.3) % RDW (11.5-14.5) % Immature Gran # (0.00-0.04) X 10*3/uL Eosinophils # (0.04-0.35) X 10*3/uL ABG pH 7.31 L (7.35-7.45) ABG pO2 123 H (83-108) mmHg ABG HCO3 19 L (21-25) mmol/L ABG O2 Saturation 98.7 H (94-97) % Sodium 148 H (135-145) mmol/L Chloride 114 H (96-109) mmol/L Carbon Dioxide 16 L (21.6-31.8) mmol/L Anion Gap (4.00-12.00) mmol/L BUN (9.0-27.0) mg/dL Creatinine 1.21 H (0.52-1.04) mg/dL BUN/Creatinine Ratio (12.00-20.00) Ratio Glucose (74-99) mg/dL Phosphorus (2.4-5.1) mg/dL AST 429 H (13-35) U/L ALT 78 H (4-34) U/L Creatine Kinase (30-135) U/L Total Protein (6.3-8.2) g/dL Urine Appearance (Clear) Urine Protein (Negative) Urine Ketones (Negative) Urine Blood (Negative) Urine WBC (0-5) /hpf Urine WBC Clumps (None) /hpf Amorphous Sediment (None) /hpf Urine Bacteria (None) /hpf Hyaline Casts (0-2) /lpf Urine Mucus (None) /hpf 10/12/23 10/12/23 10/12/23 Range/Units 04:04 04:04 06:25 WBC (3.8-10.6) k/uL Hgb (12.0-15.0) g/dL Hct (37.2-46.3) % RDW (11.5-14.5) % Immature Gran # (0.00-0.04) X 10*3/uL Eosinophils # (0.04-0.35) X 10*3/uL ABG pH 7.29 L (7.35-7.45) ABG pO2 (83-108) mmHg ABG HCO3 19 L (21-25) mmol/L ABG O2 Saturation 97.9 H (94-97) % Sodium 148 H (135-145) mmol/L Chloride 116 H (96-109) mmol/L Carbon Dioxide 17 L (21.6-31.8) mmol/L Anion Gap (4.00-12.00) mmol/L BUN (9.0-27.0) mg/dL Creatinine 1.51 H (0.52-1.04) mg/dL BUN/Creatinine Ratio (12.00-20.00) Ratio Glucose 72 L (74-99) mg/dL Phosphorus (2.4-5.1) mg/dL AST 546 H (13-35) U/L ALT 99 H (4-34) U/L Creatine Kinase 17184 H* (30-135) U/L Total Protein 6.2 L (6.3-8.2) g/dL Urine Appearance (Clear) Urine Protein (Negative) Urine Ketones (Negative) Urine Blood (Negative) Urine WBC (0-5) /hpf Urine WBC Clumps (None) /hpf Amorphous Sediment (None) /hpf Urine Bacteria (None) /hpf Hyaline Casts (0-2) /lpf Urine Mucus (None) /hpf 10/12/23 Range/Units 12:13 WBC (3.8-10.6) k/uL Hgb (12.0-15.0) g/dL Hct (37.2-46.3) % RDW (11.5-14.5) % Immature Gran # (0.00-0.04) X 10*3/uL Eosinophils # (0.04-0.35) X 10*3/uL ABG pH (7.35-7.45) ABG pO2 (83-108) mmHg ABG HCO3 (21-25) mmol/L ABG O2 Saturation (94-97) % Sodium (135-145) mmol/L Chloride (96-109) mmol/L Carbon Dioxide (21.6-31.8) mmol/L Anion Gap (4.00-12.00) mmol/L BUN (9.0-27.0) mg/dL Creatinine (0.52-1.04) mg/dL BUN/Creatinine Ratio (12.00-20.00) Ratio Glucose (74-99) mg/dL Phosphorus (2.4-5.1) mg/dL AST (13-35) U/L ALT (4-34) U/L Creatine Kinase (30-135) U/L Total Protein (6.3-8.2) g/dL Urine Appearance Turbid H (Clear) Urine Protein 2+ H (Negative) Urine Ketones 1+ H (Negative) Urine Blood Large H (Negative) Urine WBC 94 H (0-5) /hpf Urine WBC Clumps Many H (None) /hpf Amorphous Sediment Occasional H (None) /hpf Urine Bacteria Many H (None) /hpf Hyaline Casts 55 H (0-2) /lpf Urine Mucus Rare H (None) /hpf Assessment and Plan Assessment: * Suicide attempt with overdose on multiple medications. Based upon examination, it is quite positive that she overdosed on Lamictal (with profound nystagmus, dizziness), and Benadryl, with anticholinergic effect, ibuprofen with liver and renal dysfunction. She may have overdosed on Imitrex as well producing excessive serotonin. * Acute delirium/metabolic encephalopathy, likely due to above. * Acute rhabdomyolysis * Acutely elevated hepatic enzymes * Acute renal insufficiency * Hypokalemia * Bipolar disorder, borderline personality disorder, anxiety depression (per patient's father's report) * History of suicide attempt in the past Plan: * Lamictal level 36.7(2-15), as of 10/11/2023. Patient was admitted 2 days prior on 10/09/2023, and suspect Lamictal level would have been higher if tested earlier. * The ED staff contacted poison control when patient arrived 10/09/2023 at 7:21 PM. They recommended basic toxicology labs, EKG and fluids. Case was closed at 2:30 AM on 10/10/2023, when nurse reported that patient was medically cleared. * Stat EEG was performed, which was abnormal due to background slowing of moderate to severe degree, suggestive of generalized cerebral dysfunction as can be seen with toxic metabolic encephalopathy or related to medication effect. When the propofol was discontinued, the activity became more rhythmic, high amplitude delta slowing into words, during which the patient's pupils were constructing and dilating, and later also started having some slow body contractions. This may indicate convulsive tendency. May consider prolonged EEG for further evaluation. * Recommended transfer to higher level of care for continuous EEG monitoring was recommended. Patient accepted in [facility], but but not available. Family requesting transferred to [facility]. * Repeat EEG in the morning. * CT head showed no acute process. * Patient has developed rhabdomyolysis, with CK level of 74,970. Symptomatic treatment. * Hydration. * Telemetry monitoring * Seizure/fall precautions * Hold all medications for now. * Discussed with patient's parents, and primary team. Time with Patient: Greater than 30
[2023-10-13 00:26] LABS: Glucose,Whole Blood 87 mg/dL (70-110)
[2023-10-13] MEDS: SODIUM CHLORIDE 0.9% 1,000 ML IV SCH ×3 (01:13→16:16)
[2023-10-13 05:23] LABS: Basophils % (A) 0 %; Eosinophils # (A) 0.1 k/uL (0-0.7); Eosinophils % (A) 1 %; HCT 32.2 % (34.0-46.0); HGB 10.5 gm/dL (11.4-16.0); Lymphocytes # (A) 1.5 k/uL (1.0-4.8); Lymphocytes % (A) 14 %; MCH 27.3 pg (25.0-35.0); MCHC 32.5 g/dL (31.0-37.0); MCV 83.9 fL (80.0-100.0); Mean Platelet Volume 7.3; Monocytes # (A) 0.4 k/uL (0-1.0); Monocytes % (A) 4 %; Neutrophils # (A) 8.3 k/uL (1.3-7.7); Neutrophils % (A) 80 %; Platelet Count 258 k/uL (150-450); RBC 3.84 m/uL (3.80-5.40); RDW 14.9 % (11.5-15.5); WBC 10.4 k/uL (3.8-10.6)
[2023-10-13 05:30] LABS: INR 0.9 (<1.2); Prothrombin Time 10.2 sec (10.0-12.5)
[2023-10-13 05:46] LABS: ALT 75 U/L (4-34); AST 203 U/L (14-36); African American GFR (CKD) 39 (>60 ml/min/1.73 sqM); Albumin 2.9 g/dL (3.5-5.0); Alkaline Phosphatase 85 U/L (38-126); Anion Gap 10 mmol/L; Blood Urea Nitrogen 17 mg/dL (7-17); Calcium 8.3 mg/dL (8.4-10.2); Carbon Dioxide 21 mmol/L (22-30); Chloride 110 mmol/L (98-107); Glucose 90 mg/dL (74-99); Magnesium 2.4 mg/dL (1.6-2.3); Non-African American GFR(CKD) 34 (>60 ml/min/1.73 sqM); Potassium 3.6 mmol/L (3.5-5.1); Sodium 141 mmol/L (137-145); Total Bilirubin 0.3 mg/dL (0.2-1.3); Total Protein 5.2 g/dL (6.3-8.2)
[2023-10-13 05:56] LABS: ABG Base Excess -3.5 mmol/L; ABG HCO3 22 mmol/L (21-25); ABG PCO2 39 mmHg (35-45); ABG PH 7.36 (7.35-7.45); ABG PO2 127 mmHg (83-108); ABG TCO2 23 mmol/L (19-24)
[2023-10-13] MEDS: MIDAZOLAM HCL 200 MG in SODIUM CHLORIDE 0.9% 60 ML IV SCH (05:57)
[2023-10-13 06:05] LABS: Glucose,Whole Blood 95 mg/dL (70-110)
[2023-10-13 06:20] LABS: Creatine Kinase 20436 U/L (30-135)
--- NOTE | 2023-10-13 08:06 | XR ---
EXAMINATION TYPE: XR chest 1V portable DATE OF EXAM: 10/13/2023 5:51 AM CLINICAL INDICATION:Female, 23 years old with history of vented; [facility] COMPARISON: Chest radiograph from one day prior. TECHNIQUE: XR chest 1V portable Frontal view of the chest. FINDINGS: Lungs/Pleura: There is no evidence of pleural effusion, focal consolidation, or pneumothorax. Pulmonary vascularity: Unremarkable. Heart/mediastinum: Cardiomediastinal silhouette is prominent in size. Musculoskeletal: No acute osseous pathology. Other findings: None Lines/Tubes: Endotracheal tube with distal tip 2.3 cm above the jennifer. Nasogastric tube with its distal tip and side-port projecting under the diaphragm. IMPRESSION: 1. No acute cardiopulmonary disease/process. 2. Support tubes in appropriate position.
[2023-10-13] MEDS: levETIRAcetam IV 500 MG/5 ML VIAL IVP SCH ×2 (09:21→20:10)
[2023-10-13] MEDS: ENOXAPARIN 40 MG/0.4 ML SYRINGE SQ SCH (09:21)
[2023-10-13] MEDS: FAMOTIDINE 20 MG/2 ML VIAL IV SCH (09:21)
--- NOTE | 2023-10-13 11:01 | P.PN ---
Subjective Patient is seen for follow-up for acute kidney injury, ATN currently nonoliguric. She was admitted with a suicide attempt with overdose on Benadryl and Lamictal. Patient is currently on the vent. Maintained on normal saline at 1 50 mL an hour. Status post D5W for hypernatremia. Sodium today is at 141. Urine output at 32 - 70 mL an hour. Serum creatinine stable at about 1.9-2 mg/dL. Objective - Vital Signs Vital signs: Vital Signs Temp 99.5 F 10/13/23 08:00 Pulse 96 10/13/23 09:00 Resp 19 10/13/23 09:00 BP 135/74 10/13/23 09:00 Pulse Ox 99 10/13/23 09:00 FiO2 40 10/13/23 09:40 Intake & Output 10/12/23 10/13/23 10/13/23 18:59 06:59 18:59 Intake Total 2502.731 2120.126 700 Output Total 370 445 145 Balance 2132.731 1675.126 555 Weight 102.7 kg 109 kg Intake: IV 1125 750 600 Dextrose 5% in Water 1, 1125 000 ml @ 100 mls/hr IV . Q10H [facility] Rx#:[id number] Sodium Chloride 0.9% 1, 750 600 000 ml @ 150 mls/hr IV . Q6H40M [facility] Rx#:[id number] Intake, IV Titration 3998.756 1676.126 100 Amount Midazolam HCl 200 mg In 39.575 35.100 Sodium Chloride 0.9% 60 ml @ 1 MG/HR 0.5 mls/hr IV .Q24H [facility] Rx#: [id number] Sodium Chloride 0.9% 1, 150 1050 000 ml @ 150 mls/hr IV . Q6H40M [facility] Rx#:[id number] Sodium Chloride 0.9% 1, 1000 000 ml @ 999 mls/hr IV . Q1H1M [facility] Rx#:[id number] propofoL 1,000 mg In 188.156 285.026 100 Empty Bag 1 bag @ 15 MCG/ KG/MIN 9.389 mls/hr IV . [id number] [facility] Rx#:[id number] Output: Urine 370 445 145 Other: Voiding Method Indwelling Catheter Indwelling Catheter Indwelling Catheter ABP, PAP, CO, CI - Last Documented Arterial Blood Pressure 163/65 - Exam Abdomen is soft nontender Examination of lower extremities shows no edema. Examination of the heart S1 and S2 Examination of the lungs bilateral breath sounds are heard Abdomen is soft nontender - Labs CBC & Chem 7: 10/13/23 04:30 10/13/23 04:30 Labs: Abnormal Lab Results - Last 24 Hours (Table) 10/11/23 10/12/23 10/12/23 Range/Units 15:08 04:04 12:13 Hgb (11.4-16.0) gm/dL Hct (34.0-46.0) % Neutrophils # (1.3-7.7) k/uL ABG pO2 (83-108) mmHg ABG O2 Saturation (94-97) % Potassium (3.5-5.1) mmol/L Chloride (98-107) mmol/L Carbon Dioxide (22-30) mmol/L Creatinine (0.52-1.04) mg/dL Glucose (74-99) mg/dL POC Glucose (mg/dL) (70-110) mg/dL Calcium (8.4-10.2) mg/dL Magnesium (1.6-2.3) mg/dL AST (14-36) U/L ALT (4-34) U/L Creatine Kinase 49320 H* (30-135) U/L Total Protein (6.3-8.2) g/dL Albumin (3.5-5.0) g/dL Urine Appearance Turbid H (Clear) Urine Protein 2+ H (Negative) Urine Ketones 1+ H (Negative) Urine Blood Large H (Negative) Urine WBC 94 H (0-5) /hpf Urine WBC Clumps Many H (None) /hpf Amorphous Sediment Occasional H (None) /hpf Urine Bacteria Many H (None) /hpf Hyaline Casts 55 H (0-2) /lpf Urine Mucus Rare H (None) /hpf Lamotrigine 36.7 H* (2.0-15.0) ug/mL 10/12/23 10/12/23 10/13/23 Range/Units 17:27 17:30 04:09 Hgb (11.4-16.0) gm/dL Hct (34.0-46.0) % Neutrophils # (1.3-7.7) k/uL ABG pO2 127 H (83-108) mmHg ABG O2 Saturation 99.0 H (94-97) % Potassium 3.4 L (3.5-5.1) mmol/L Chloride 108 H (98-107) mmol/L Carbon Dioxide 19 L (22-30) mmol/L Creatinine 1.93 H (0.52-1.04) mg/dL Glucose 113 H (74-99) mg/dL POC Glucose (mg/dL) 114 H (70-110) mg/dL Calcium (8.4-10.2) mg/dL Magnesium (1.6-2.3) mg/dL AST (14-36) U/L ALT (4-34) U/L Creatine Kinase (30-135) U/L Total Protein (6.3-8.2) g/dL Albumin (3.5-5.0) g/dL Urine Appearance (Clear) Urine Protein (Negative) Urine Ketones (Negative) Urine Blood (Negative) Urine WBC (0-5) /hpf Urine WBC Clumps (None) /hpf Amorphous Sediment (None) /hpf Urine Bacteria (None) /hpf Hyaline Casts (0-2) /lpf Urine Mucus (None) /hpf Lamotrigine (2.0-15.0) ug/mL 10/13/23 10/13/23 Range/Units 04:30 04:30 Hgb 10.5 L (11.4-16.0) gm/dL Hct 32.2 L (34.0-46.0) % Neutrophils # 8.3 H (1.3-7.7) k/uL ABG pO2 (83-108) mmHg ABG O2 Saturation (94-97) % Potassium (3.5-5.1) mmol/L Chloride 110 H (98-107) mmol/L Carbon Dioxide 21 L (22-30) mmol/L Creatinine 2.02 H (0.52-1.04) mg/dL Glucose (74-99) mg/dL POC Glucose (mg/dL) (70-110) mg/dL Calcium 8.3 L (8.4-10.2) mg/dL Magnesium 2.4 H (1.6-2.3) mg/dL AST 203 H (14-36) U/L ALT 75 H (4-34) U/L Creatine Kinase 29117 H* (30-135) U/L Total Protein 5.2 L (6.3-8.2) g/dL Albumin 2.9 L (3.5-5.0) g/dL Urine Appearance (Clear) Urine Protein (Negative) Urine Ketones (Negative) Urine Blood (Negative) Urine WBC (0-5) /hpf Urine WBC Clumps (None) /hpf Amorphous Sediment (None) /hpf Urine Bacteria (None) /hpf Hyaline Casts (0-2) /lpf Urine Mucus (None) /hpf Lamotrigine (2.0-15.0) ug/mL Assessment and Plan Assessment: 1. Acute kidney injury secondary to ATN. Patient has rhabdo myolysis. [place] [address] [place] [address]. [place] level not high. Serum creatinine at 1.9-2 mg/dL. Maintained on IV fluids. Baseline creatinine 0.8- 0.9. 2. Suicide attempt. She took multiple medications including Benadryl and Lamictal. 3. Seizures. 4. Metabolic acidosis secondary to acute kidney injury, IV fluids. Can also be from lactic acidosis from seizures. 5. Bipolar disorder. 6. Hypernatremia from lack oral water intake. Patient not polyuric. Status post D5W and currently maintained on normal saline. Plan: Repeat sodium this evening. Adjust IV fluids based on serum sodium level. Continue with IV fluids Repeat labs in a.m.
[2023-10-13] MEDS: DEXMEDETOMIDINE/0.9% NACL(PMX) 400 MCG in EMPTY BAG 1 BAG IV SCH ×3 (11:16→21:51)
[2023-10-13 11:42] LABS: Glucose,Whole Blood 109 mg/dL (70-110)
--- NOTE | 2023-10-13 12:05 | P.PN ---
Subjective Progress Note Date: 10/13/23 Principal diagnosis: Multiple drug overdose This is a 23-year-old female with known history of bipolar disorder, depression, previous history of suicidal attempts, patient was brought into the ER on 10/09/23 at 6:3 0 p.m. and apparently the patient ingested an unknown amount of lamotrigine 100 mg, buspirone, Benadryl, Sumatriptan, and lithium and apoquel. While in the ER, the patient was noted to be initially stable, and she was seen by many consultants while in the ER including psychiatry. Patient went on to develop worsening symptoms of psychosis, involuntary muscle movements, possible seizures, and the first time I knew about this patient was early evening yesterday when the admitting physician Dr. Orozco called me , and the patient was requiring significant amount of benzodiazepines to keep her calm. Shortly after I talked over the phone, patient was intubated and she was having intermittent seizures. Patient was sent to the ICU, she was placed on Versed drip at 15 mg per hour and propofol at 50 mcg/kg/m. Neurology who have ready seen the patient, loaded her with Keppra, and the patient was kept intubated and mechanically ventilated overnight. No further seizures were noted. Patient is now on assist control rate of 18 tidal volume 450 FiO2 40% and PEEP of 5 ABG showed a pO2 of 99 pCO2 40 pH of 7.29. When the patient was intubated yes terday, I have recommended adjustment of the endotracheal tube because it was initially in the right mainstem bronchus, and this was done shortly after. Apparently was in control was aware of this patient, and the recommendation was mostly treatment with benzodiazepines. And no other specific treatment was recommended. This morning the patient remains on propofol at 50 mg/kg/m and on Versed 15 mg/h she is on IV fluid at 75 mL per hour in the form of D5W. Her CT of the brain and EEG are negative so far. Her urine output is about 40 mL per hour. Patient received 1 amp of bicarbonate earlier for acidosis/metabolic acidosis and my plan is to taper down Versed hopefully discontinue Versed today, and keep the patient on propofol. In the meantime I went ahead and established right radial arterial line in this patient she has enough IV access for the time being, does not require a central line placement. Chest x-ray showed adequate placement of the endotracheal tube and some left sided infiltrates atelectasis most likely secondary to the fact that the endotracheal tube was in the right mainstem bronchus when the patient was in the ER. Her basic metabolic profile is normal except sodium is 148 potassium 3.8 bicarbonate 17 BUN is 14 and creatinine is up to 1.51, and that being addressed by nephrology on the case. WBC count is 11.5 hemoglobin is 12.0. Platelets are normal however the patient seems to have developed significantly elevated CPK with 74,970, and I believe that is probably a picture of rhabdomyolysis from her seizures yesterday, and she developing acute kidney injury from rhabdomyolysis Patient was seen and examined today on 10/13/2023, remains in the ICU, intubated and mechanically ventilated. Patient is on assist control rate of 18 tidal volume 450 FiO2 40% and PEEP of 5 ABG showed a pO2 of 127 pCO2 39 pH of 7.36. Patient remains on propofol at 50 mcg/kg/m Versed at 5 mg per hour, she is on vital HPF 50 mL/h IV fluid 0.9 normal saline at 1 50 mL per hour. Patient is sedated, however when the patient went off propofol and Versed I was able to wak e of the patient, follows simple instructions but seems to be quite lethargic and sleepy hence I stressed transition the patient to a pressure support mode of mechanical ventilation with pressure support of 12 and CPAP. She is not quite ready to be extubated mostly because of her mental status and she seems to be quite sedated. I did recommend however stopping propofol and Versed. Her urine output is about 30-40 mL/h, creatinine is a bit worse today compared to yesterday, CPK is coming down to the 20,400 range. It was 74,000 yesterday. CBC showed WBC count of 10.4 hemoglobin 10.5. Objective - Vital Signs Vital signs: Vital Signs Temp 99.5 F 10/13/23 08:00 Pulse 106 H 10/13/23 11:00 Resp 27 H 10/13/23 11:00 BP 146/75 10/13/23 10:00 Pulse Ox 99 10/13/23 09:00 FiO2 40 10/13/23 09:40 Intake & Output 12/15/23 12/16/23 12/16/23 18:59 06:59 18:59 Intake Total 2502.731 2120.126 1027.440 Output Total 370 445 265 Balance 2132.731 1675.126 762.440 Weight 102.7 kg 109 kg Intake: IV 1125 750 900 Dextrose 5% in Water 1, 1125 000 ml @ 100 mls/hr IV . Q10H ONE Rx#:[id number] Sodium Chloride 0.9% 1, 750 900 000 ml @ 150 mls/hr IV . Q6H40M [facility] Rx#:[id number] Intake, IV Titration 2274.828 4871.126 127.440 Amount Dexmedetomidine/0.9% NaCl 1.363 (Pmx) 400 mcg In Empty Bag 1 bag @ 0.2 MCG/KG/HR 5.45 mls/hr IV .[id number] [facility] Rx#:[id number] Midazolam HCl 200 mg In 39.575 35.100 10.167 Sodium Chloride 0.9% 60 ml @ 1 MG/HR 0.5 mls/hr IV .Q24H [facility] Rx#: [id number] Sodium Chloride 0.9% 1, 150 1050 000 ml @ 150 mls/hr IV . Q6H40M [facility] Rx#:[id number] Sodium Chloride 0.9% 1, 1000 000 ml @ 999 mls/hr IV . Q1H1M ONE Rx#:[id number] propofoL 1,000 mg In 188.156 285.026 115.910 Empty Bag 1 bag @ 15 MCG/ KG/MIN 9.389 mls/hr IV . [id number] [facility] Rx#:[id number] Output: Urine 370 445 265 Other: Voiding Method Indwelling Catheter Indwelling Catheter Indwelling Catheter ABP, PAP, CO, CI - Last Documented Arterial Blood Pressure 162/82 - Exam Physical Exam: Revealed 23-year-old female, obese, sedated, intubated, not in distress Head: Atraumatic normocephalic. HEENT:[Neck is supple.] [No neck masses.] [No thyromegaly.] [No JVD.] Endotracheal tube and orogastric tubes are intact Chest: [Clear throughout, no crackles, no rhonchi, no wheezes.] Cardiac Exam: [Normal S1 and S2, no S3 gallop, no murmur.] Abdomen: [Obese, Soft, nontender, no megaly, no rebound, no guarding, normal bowel sounds.] Extremities: [No clubbing, no edema, no cyanosis.] Good pulses bilaterally. Neurological Exam: Could not assess the neurological status while on propofol and Versed, however when she went off both drugs, patient was arousable and following simple instructions but could not maintain an eye contact, and she continues to be quite sleepy, lethargic, and tends to fall asleep easily once left alone. Psychiatric: Could not assess Skin: Multiple tattoos, no rashes - Labs CBC & Chem 7: 10/13/23 04:30 10/13/23 04:30 Labs: Abnormal Lab Results - Last 24 Hours (Table) 10/11/23 10/12/23 10/12/23 Range/Units 15:08 12:13 17:27 Hgb (11.4-16.0) gm/dL Hct (34.0-46.0) % Neutrophils # (1.3-7.7) k/uL ABG pO2 (83-108) mmHg ABG O2 Saturation (94-97) % Potassium (3.5-5.1) mmol/L Chloride (98-107) mmol/L Carbon Dioxide (22-30) mmol/L Creatinine (0.52-1.04) mg/dL Glucose (74-99) mg/dL POC Glucose (mg/dL) 114 H (70-110) mg/dL Calcium (8.4-10.2) mg/dL Magnesium (1.6-2.3) mg/dL AST (14-36) U/L ALT (4-34) U/L Creatine Kinase (30-135) U/L Total Protein (6.3-8.2) g/dL Albumin (3.5-5.0) g/dL Urine Appearance Turbid H (Clear) Urine Protein 2+ H (Negative) Urine Ketones 1+ H (Negative) Urine Blood Large H (Negative) Urine WBC 94 H (0-5) /hpf Urine WBC Clumps Many H (None) /hpf Amorphous Sediment Occasional H (None) /hpf Urine Bacteria Many H (None) /hpf Hyaline Casts 55 H (0-2) /lpf Urine Mucus Rare H (None) /hpf Lamotrigine 36.7 H* (2.0-15.0) ug/mL 10/12/23 10/13/23 10/13/23 Range/Units 17:30 04:09 04:30 Hgb 10.5 L (11.4-16.0) gm/dL Hct 32.2 L (34.0-46.0) % Neutrophils # 8.3 H (1.3-7.7) k/uL ABG pO2 127 H (83-108) mmHg ABG O2 Saturation 99.0 H (94-97) % Potassium 3.4 L (3.5-5.1) mmol/L Chloride 108 H (98-107) mmol/L Carbon Dioxide 19 L (22-30) mmol/L Creatinine 1.93 H (0.52-1.04) mg/dL Glucose 113 H (74-99) mg/dL POC Glucose (mg/dL) (70-110) mg/dL Calcium (8.4-10.2) mg/dL Magnesium (1.6-2.3) mg/dL AST (14-36) U/L ALT (4-34) U/L Creatine Kinase (30-135) U/L Total Protein (6.3-8.2) g/dL Albumin (3.5-5.0) g/dL Urine Appearance (Clear) Urine Protein (Negative) Urine Ketones (Negative) Urine Blood (Negative) Urine WBC (0-5) /hpf Urine WBC Clumps (None) /hpf Amorphous Sediment (None) /hpf Urine Bacteria (None) /hpf Hyaline Casts (0-2) /lpf Urine Mucus (None) /hpf Lamotrigine (2.0-15.0) ug/mL 10/13/23 Range/Units 04:30 Hgb (11.4-16.0) gm/dL Hct (34.0-46.0) % Neutrophils # (1.3-7.7) k/uL ABG pO2 (83-108) mmHg ABG O2 Saturation (94-97) % Potassium (3.5-5.1) mmol/L Chloride 110 H (98-107) mmol/L Carbon Dioxide 21 L (22-30) mmol/L Creatinine 2.02 H (0.52-1.04) mg/dL Glucose (74-99) mg/dL POC Glucose (mg/dL) (70-110) mg/dL Calcium 8.3 L (8.4-10.2) mg/dL Magnesium 2.4 H (1.6-2.3) mg/dL AST 203 H (14-36) U/L ALT 75 H (4-34) U/L Creatine Kinase 71400 H* (30-135) U/L Total Protein 5.2 L (6.3-8.2) g/dL Albumin 2.9 L (3.5-5.0) g/dL Urine Appearance (Clear) Urine Protein (Negative) Urine Ketones (Negative) Urine Blood (Negative) Urine WBC (0-5) /hpf Urine WBC Clumps (None) /hpf Amorphous Sediment (None) /hpf Urine Bacteria (None) /hpf Hyaline Casts (0-2) /lpf Urine Mucus (None) /hpf Lamotrigine (2.0-15.0) ug/mL Assessment and Plan Assessment: Impression: Acute hypoxic respiratory failure secondary to drug overdose, multiple drugs, mo stly with excessive anticholinergic symptoms Suicidal ideation and suicidal attempt History of bipolar disorder, and depression Acute rhabdomyolysis Acute seizure disorder secondary to multiple drugs overdose \ acute kidney injury secondary to ATN and rhabdomyolysis with significantly elevated CPK Acute metabolic acidosis secondary to kidney injury and secondary to seizures Hypovolemic hypernatremia Recommendation: Continue ventilatory support, however the patient may be given a trial of weanin g today off propofol and Versed if tolerated , I actually started the patient on pressure support of 12 and CPAP. Discontinue Versed and propofol, consider Precedex if the patient is to be weaned successfully. Continue Keppra Continue seizure precautions Continue IV fluids presently on 0.9 normal saline at 150 mL per hour mostly because of her acute rhabdomyolysis Continue GI and DVT prophylaxis Restart Seroquel after extubation as recommended by psychiatry Hold enteral feeding and the patient is to be extubated today. Reconsult psychiatry after the patient is extubated Remains critically ill and should remain in the ICU for now even if extubated Critical care time is over 30 minutes We will continue to follow Time with Patient: Greater than 30
--- NOTE | 2023-10-13 13:25 | P.PN ---
Subjective Progress Note Date: 10/13/23 23-year-old female came in the with the concerns of overdose patient was attempting suicide as per the family members. Patient to these medications approximately 9:52 PM on October 08 which was couple days ago patient was okay when she came in started getting worse started getting agitated drowsy and was subsequently admitted to the medicine service because of that reason. Patient the was found to have 2 bottles of Lamictal 100 mg, buspirone, diphenhydramine, sumatriptan, 6 lithium the patient is presently agitated, having muscle spasms horizontal nystagmus all of which are consistent with anticholinergic side effects can be secondary to sumatriptan overdose. Patient is receiving Valium at this time will add Ativan at an as-needed basis as well. Patient is getting IV fluids at 1 50 mL per hour patient had nausea vomiting unable to tolerate any oral medications and activated charcoal. Patient is completely confused at this time. EKG did not show any QT prolongation. 10/12/2023 Patient was seen in follow up today admitted to the intensive care unit. Currently intubated and sedated with FiO2 of 40%, patient was intubated for airway protection. Was having seizure like activity suspected. EEG shows background slowing of moderate to severe degree suggestive generalized cerebral dysfunction as seen with toxic metabolic encephalopathy or related to medication effect. When the propofol was discontinued the activity became more rhythmic high amplitude delta slowing and 2 Hz during which the patient's pupils are strict and dilating and also started having some slow body contractions. This may indicate convulsive tendency. Consider for prolonged EEG for further evaluation. Remains on IV valium, IVP keppra, IV versed running at 4.5 mls/hr, she is sedated with propofol. Her labs today are showing sodium 148, potassium 3.8, BUN 14, creatinine 1.51. AST/ALT elevated, creatine kinase 28430. 10/13/2023 Patient evaluated intensive care unit currently intubated however she is off the propofol and she is responsive. Plan is for extubation today. Chest x-ray today shows no acute cardiopulmonary disease. Patient Had a repeat EEG last night which showed improvement per neurology although the official reports are not resulted. Lamictal level did come back at 36.7. LFTs and creatinine kinase are improving. Creatinine of 2.02 today. Patient is being followed closely by nephrology and remains in normal saline at 150 ML per hour. Additionally she is on IV Keppra, IV Versed, Valium. Patient is also on IV precedex. Patient is on enteral feeding. REVIEW OF SYSTEMS: Unable to complete at this time patient is intubated in the ICU PHYSICAL EXAMINATION: GENERAL: Patient is sedated and intubated at this time. HEENT: Pupils are round and equally reacting to light. EOMI. No scleral icterus. No conjunctival pallor. Normocephalic, atraumatic. No pharyngeal erythema. No t hyromegaly. CARDIOVASCULAR: S1 and S2 present. No murmurs, rubs, or gallops. PULMONARY: Chest is clear to auscultation, no wheezing or crackles. ABDOMEN: Soft, nontender, nondistended, normoactive bowel sounds. No palpable organomegaly. MUSCULOSKELETAL: No joint swelling or deformity. EXTREMITIES: No cyanosis, clubbing, or pedal edema. NEUROLOGICAL: awake alert remains intubated but off sedation and following commands. SKIN: No rashes. Assessment and plan -Drug overdose mostly due to Benadryl and sumatriptan lithium and lamictal; patients levels were normal. Lamictal level came back elevated at 36.7. Patient had anticholinergic side effects having myoclonus and concern for seizure like activity and patient was intubated and sedated currently in the intensive care unit. Patient has been continued on IV keppra, IV versed has been held. On IV precedex. -Acute hypoxic respiratory failure from the overdose requiring Mechanical ventilator monitoring clinically patient has improved and will be extubated today. -Suicidal ideation and suicide attempt: Psychiatry evaluated the patient does meet need for IP placement when medically stable. -Horizontal nystagmus secondary to anticholinergic side effects, supportive care continue with the Valium. -Acute rhabdomyolysis secondary to JOCELYN/Myoclonus with elevated creatine kinase recommend to monitor LFTS/INR levels. Levels are currently improving and will recommend to repeat labs in the AM. -Acute kidney injury secondary to acute tubular necrosis and the rhabdo, nephrology has been consulted for monitoring patient will be hydrated and monitor levels daily -Bipolar disorder and depression -Nicotine use DVT prophylaxis: Lovenox Gi prophylaxis: Pepcid Full Code Patients family at the bedside updated on plan of care more than 35 minutes spent in coordination of care. The impression and plan of care has been dictated by Shu Mccoy, Nurse Practitioner as directed. Dr. Pam MD I have performed a history and physical examination and medical decision making of this patient, discussed the same with the dictator, and agree with the dictators assessment and plan as written, documented as a scribe. Based on total visit time, I have performed more than 50% of this visit. Objective - Vital Signs Vital signs: Vital Signs Temp 97.9 F 10/13/23 04:00 Pulse 98 10/13/23 07:00 Resp 18 10/13/23 07:00 BP 133/73 10/13/23 07:00 Pulse Ox 94 L 10/13/23 07:00 FiO2 40 10/13/23 04:01 Intake & Output 10/12/23 10/13/23 10/13/23 18:59 06:59 18:59 Intake Total 2502.731 2120.126 150 Output Total 370 445 45 Balance 2132.731 1675.126 105 Weight 102.7 kg 109 kg Intake: IV 1125 750 150 Dextrose 5% in Water 1, 1125 000 ml @ 100 mls/hr IV . Q10H ONE Rx#:[id number] Sodium Chloride 0.9% 1, 750 150 000 ml @ 150 mls/hr IV . Q6H40M [facility] Rx#:[id number] Intake, IV Titration 3750.809 1625.126 Amount Midazolam HCl 200 mg In 39.575 35.100 Sodium Chloride 0.9% 60 ml @ 1 MG/HR 0.5 mls/hr IV .Q24H [facility] Rx#: [id number] Sodium Chloride 0.9% 1, 150 1050 000 ml @ 150 mls/hr IV . Q6H40M [facility] Rx#:[id number] Sodium Chloride 0.9% 1, 1000 000 ml @ 999 mls/hr IV . Q1H1M [facility] Rx#:[id number] propofoL 1,000 mg In 188.156 285.026 Empty Bag 1 bag @ 15 MCG/ KG/MIN 9.389 mls/hr IV . [id number] [facility] Rx#:[id number] Output: Urine 370 445 45 Other: Voiding Method Indwelling Catheter Indwelling Catheter ABP, PAP, CO, CI - Last Documented Arterial Blood Pressure 171/63 - Labs CBC & Chem 7: 10/13/23 04:30 10/13/23 04:30 Labs: Abnormal Lab Results - Last 24 Hours (Table) 10/11/23 10/12/23 10/12/23 Range/Units 15:08 04:04 12:13 Hgb (11.4-16.0) gm/dL Hct (34.0-46.0) % Neutrophils # (1.3-7.7) k/uL ABG pO2 (83-108) mmHg ABG O2 Saturation (94-97) % Potassium (3.5-5.1) mmol/L Chloride (98-107) mmol/L Carbon Dioxide (22-30) mmol/L Creatinine (0.52-1.04) mg/dL Glucose (74-99) mg/dL POC Glucose (mg/dL) (70-110) mg/dL Calcium (8.4-10.2) mg/dL Magnesium (1.6-2.3) mg/dL AST (14-36) U/L ALT (4-34) U/L Creatine Kinase 26036 H* (30-135) U/L Total Protein (6.3-8.2) g/dL Albumin (3.5-5.0) g/dL Urine Appearance Turbid H (Clear) Urine Protein 2+ H (Negative) Urine Ketones 1+ H (Negative) Urine Blood Large H (Negative) Urine WBC 94 H (0-5) /hpf Urine WBC Clumps Many H (None) /hpf Amorphous Sediment Occasional H (None) /hpf Urine Bacteria Many H (None) /hpf Hyaline Casts 55 H (0-2) /lpf Urine Mucus Rare H (None) /hpf Lamotrigine 36.7 H* (2.0-15.0) ug/mL 10/12/23 10/12/23 10/13/23 Range/Units 17:27 17:30 04:09 Hgb (11.4-16.0) gm/dL Hct (34.0-46.0) % Neutrophils # (1.3-7.7) k/uL ABG pO2 127 H (83-108) mmHg ABG O2 Saturation 99.0 H (94-97) % Potassium 3.4 L (3.5-5.1) mmol/L Chloride 108 H (98-107) mmol/L Carbon Dioxide 19 L (22-30) mmol/L Creatinine 1.93 H (0.52-1.04) mg/dL Glucose 113 H (74-99) mg/dL POC Glucose (mg/dL) 114 H (70-110) mg/dL Calcium (8.4-10.2) mg/dL Magnesium (1.6-2.3) mg/dL AST (14-36) U/L ALT (4-34) U/L Creatine Kinase (30-135) U/L Total Protein (6.3-8.2) g/dL Albumin (3.5-5.0) g/dL Urine Appearance (Clear) Urine Protein (Negative) Urine Ketones (Negative) Urine Blood (Negative) Urine WBC (0-5) /hpf Urine WBC Clumps (None) /hpf Amorphous Sediment (None) /hpf Urine Bacteria (None) /hpf Hyaline Casts (0-2) /lpf Urine Mucus (None) /hpf Lamotrigine (2.0-15.0) ug/mL 10/13/23 10/13/23 Range/Units 04:30 04:30 Hgb 10.5 L (11.4-16.0) gm/dL Hct 32.2 L (34.0-46.0) % Neutrophils # 8.3 H (1.3-7.7) k/uL ABG pO2 (83-108) mmHg ABG O2 Saturation (94-97) % Potassium (3.5-5.1) mmol/L Chloride 110 H (98-107) mmol/L Carbon Dioxide 21 L (22-30) mmol/L Creatinine 2.02 H (0.52-1.04) mg/dL Glucose (74-99) mg/dL POC Glucose (mg/dL) (70-110) mg/dL Calcium 8.3 L (8.4-10.2) mg/dL Magnesium 2.4 H (1.6-2.3) mg/dL AST 203 H (14-36) U/L ALT 75 H (4-34) U/L Creatine Kinase 29106 H* (30-135) U/L Total Protein 5.2 L (6.3-8.2) g/dL Albumin 2.9 L (3.5-5.0) g/dL Urine Appearance (Clear) Urine Protein (Negative) Urine Ketones (Negative) Urine Blood (Negative) Urine WBC (0-5) /hpf Urine WBC Clumps (None) /hpf Amorphous Sediment (None) /hpf Urine Bacteria (None) /hpf Hyaline Casts (0-2) /lpf Urine Mucus (None) /hpf Lamotrigine (2.0-15.0) ug/mL Assessment and Plan Time with Patient: Less than 30
[2023-10-13 14:13] LABS: ABG Base Excess -4.4 mmol/L; ABG HCO3 21 mmol/L (21-25); ABG Oxygen Saturation 98.8 % (94-97); ABG PCO2 39 mmHg (35-45); ABG PH 7.34 (7.35-7.45); ABG PO2 118 mmHg (83-108); ABG TCO2 23 mmol/L (19-24); Allen Test Performed? Yes
[2023-10-13] MEDS ORDERED: SODIUM BICARB 8.4% 50 ML SYR (1 MEQ/ML) IV STA (14:20)
[2023-10-13] MEDS ORDERED: LORazepam 2 MG/ML INJ IV PRN (14:42)
[2023-10-13] MEDS: LORazepam 2 MG/ML INJ IV PRN ×2 (15:07→18:25)
[2023-10-13] MEDS: SODIUM CHLORIDE 0.45% 1,000 ML IV SCH ×2 (17:25→22:44)
[2023-10-13] MEDS ORDERED: HALOPERIDOL LACTATE 5 MG/ML 1 ML VIAL IVP PRN (18:53)
--- NOTE | 2023-10-13 20:26 | EEG ---
ELECTROENCEPHALOGRAM REPORT PREAMBLE: This is a 23-year-old female, with suicide attempt, had some seizure-like activity. This is a followup EEG #2. CURRENT MEDICATIONS: Keppra 1500 mg b.i.d., the patient was on propofol 30 mcg/kg per minute, which was just stopped prior to starting the EEG. The patient is also off Versed drip. EEG FINDINGS: This is a 21-channel digital EEG recorded with video component, utilizing 10/20 international system with referential and bipolar montages. Background consists of somewhat disorganized, predominantly moderate to high amplitude mixed theta and delta frequency rhythm seen in bihemispheric region. Frontal intermittent rhythmic delta activity was seen. Some sporadic gross movements were seen, but no clear epileptiform activity was seen. During later part of the study, slightly relatively well-formed 7 to 8 hertz posterior dominant background was seen sporadically during this study. No definitive electrographic seizures were recorded. IMPRESSION: Abnormal EEG due to presence of background disorganization, with frontal intermittent rhythmic delta activity seen during the study. This is suggestive of generalized cerebral dysfunction as can be seen with toxic metabolic encephalopathy or related to diffuse structural brain abnormality. No clear-cut epileptiform activity was seen. Frontal intermittent rhythmic delta activity may be seen with encephalopathy, although may suggest underlying convulsive tendency. Followup EEG recommended, if clinically indicated. MMODL / IJN: [id number] /
[2023-10-14] MEDS: LORazepam 2 MG/ML INJ IV PRN ×2 (00:42→04:30)
[2023-10-14] MEDS: DEXMEDETOMIDINE/0.9% NACL(PMX) 400 MCG in EMPTY BAG 1 BAG IV SCH ×5 (01:27→20:31)
[2023-10-14 03:59] LABS: Basophils % (A) 0 %; Eosinophils # (A) 0.2 k/uL (0-0.7); Eosinophils % (A) 2 %; HCT 29.9 % (34.0-46.0); Lymphocytes # (A) 1.5 k/uL (1.0-4.8); Lymphocytes % (A) 20 %; MCH 28.2 pg (25.0-35.0); MCHC 33.5 g/dL (31.0-37.0); MCV 84.2 fL (80.0-100.0); Mean Platelet Volume 8.2; Monocytes # (A) 0.3 k/uL (0-1.0); Monocytes % (A) 4 %; Neutrophils # (A) 5.5 k/uL (1.3-7.7); Neutrophils % (A) 73 %; Platelet Count 210 k/uL (150-450); RBC 3.55 m/uL (3.80-5.40); RDW 14.7 % (11.5-15.5); WBC 7.5 k/uL (3.8-10.6)
[2023-10-14 04:01] LABS: ALT 111 U/L (4-34); African American GFR (CKD) 52 (>60 ml/min/1.73 sqM); Albumin 2.8 g/dL (3.5-5.0); Anion Gap 9 mmol/L; Blood Urea Nitrogen 19 mg/dL (7-17); Calcium 8.6 mg/dL (8.4-10.2); Carbon Dioxide 20 mmol/L (22-30); Chloride 116 mmol/L (98-107); Glucose 93 mg/dL (74-99); Non-African American GFR(CKD) 45 (>60 ml/min/1.73 sqM); Sodium 145 mmol/L (137-145); Total Bilirubin 0.6 mg/dL (0.2-1.3); Total Protein 5.3 g/dL (6.3-8.2)
[2023-10-14 04:20] LABS: AST 231 U/L (14-36); Alkaline Phosphatase 72 U/L (38-126); Magnesium 2.3 mg/dL (1.6-2.3); Potassium 4.4 mmol/L (3.5-5.1)
[2023-10-14] MEDS: SODIUM CHLORIDE 0.45% 1,000 ML IV SCH ×2 (04:52→11:11)
--- NOTE | 2023-10-14 08:09 | P.PN ---
Subjective Progress Note Date: 10/13/23 10/13/2023: Patient was seen for a follow-up. Patient had an EEG performed today. Propofol was discontinued just before the EEG was started at 9 AM. Versed 5 mg per hour was discontinued during the EEG was going on. At present (2:12 PM) patient is currently on Precedex 0.6 infusion, to control agitation. Patient was attempted on extubation, but apparently her mentation was not completely normal, was not making eye contact, therefore extubation was put on hold. No obvious recurrent seizures. Patient denies headache at this time. She is answering appropriately despite being on intubation. 10/12/2023: Patient since last seen in the ER, developed conversions for which she was started on Versed drip. Patient was intubated for mechanical ventilation in the ER and then transferred to ICU. In order to control the conversions, patient was placed on high dose Versed 15 mg per hour and propofol 50 mcg/mg per minute. I had been in touch with the nursing staff multiple times on the phone about seizure management. Patient was given loading dose of Keppra 1500 mg and maintained on Keppra 1500 mg twice a day. Since this morning, the Versed drip has been decreased gradually down to 9 mg per hour. She is still on propofol at the same dose as mentioned above. Patient's family members were present today. Patient probably overdosed on Lamictal, Imitrex, ibuprofen, Benadryl, BuSpar. Exact amount of medications uncertain. Objective - Vital Signs Vital signs: Vital Signs Temp 99.5 F 10/13/23 08:00 Pulse 84 10/13/23 13:00 Resp 22 10/13/23 13:00 BP 131/86 10/13/23 13:00 Pulse Ox 99 10/13/23 09:00 FiO2 40 10/13/23 12:34 Intake & Output 10/12/23 10/13/23 10/13/23 18:59 06:59 18:59 Intake Total 2502.731 2120.126 1340.202 Output Total 370 445 285 Balance 2132.731 9629.058 6800.202 Weight 102.7 kg 109 kg Intake: IV 7861 946 4870 Dextrose 5% in Water 1, 1125 000 ml @ 100 mls/hr IV . Q10H [facility] Rx#:[id number] Sodium Chloride 0.9% 1, 750 1200 000 ml @ 150 mls/hr IV . Q6H40M [facility] Rx#:[id number] Intake, IV Titration 5116.572 4516.126 140.202 Amount Dexmedetomidine/0.9% NaCl 14.125 (Pmx) 400 mcg In Empty Bag 1 bag @ 0.2 MCG/KG/HR 5.45 mls/hr IV .[id number] [facility] Rx#:[id number] Midazolam HCl 200 mg In 39.575 35.100 10.167 Sodium Chloride 0.9% 60 ml @ 1 MG/HR 0.5 mls/hr IV .Q24H [facility] Rx#: [id number] Sodium Chloride 0.9% 1, 150 1050 000 ml @ 150 mls/hr IV . Q6H40M [facility] Rx#:[id number] Sodium Chloride 0.9% 1, 1000 000 ml @ 999 mls/hr IV . Q1H1M [facility] Rx#:[id number] propofoL 1,000 mg In 188.156 285.026 115.910 Empty Bag 1 bag @ 15 MCG/ KG/MIN 9.389 mls/hr IV . [id number] [facility] Rx#:[id number] Output: Urine 370 445 285 Other: Voiding Method Indwelling Catheter Indwelling Catheter Indwelling Catheter ABP, PAP, CO, CI - Last Documented Arterial Blood Pressure 138/77 - Exam Patient at present is intubated, on mechanical ventilation, does wake up, and answers appropriately by nodding. Denies headache. 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 Patient was wiggling both feet on the command. Patient currently on Precedex 0.6 infusion. Patient's pupils are about 4 mm, reacting. Her gaze is still slightly upwards. - Labs CBC & Chem 7: 10/14/23 03:19 10/14/23 03:19 Labs: Abnormal Lab Results - Last 24 Hours (Table) 10/11/23 10/12/23 10/12/23 Range/Units 15:08 17:27 17:30 Hgb (11.4-16.0) gm/dL Hct (34.0-46.0) % Neutrophils # (1.3-7.7) k/uL ABG pO2 (83-108) mmHg ABG O2 Saturation (94-97) % Potassium 3.4 L (3.5-5.1) mmol/L Chloride 108 H (98-107) mmol/L Carbon Dioxide 19 L (22-30) mmol/L Creatinine 1.93 H (0.52-1.04) mg/dL Glucose 113 H (74-99) mg/dL POC Glucose (mg/dL) 114 H (70-110) mg/dL Calcium (8.4-10.2) mg/dL Magnesium (1.6-2.3) mg/dL AST (14-36) U/L ALT (4-34) U/L Creatine Kinase (30-135) U/L Total Protein (6.3-8.2) g/dL Albumin (3.5-5.0) g/dL Lamotrigine 36.7 H* (2.0-15.0) ug/mL 10/13/23 10/13/23 10/13/23 Range/Units 04:09 04:30 04:30 Hgb 10.5 L (11.4-16.0) gm/dL Hct 32.2 L (34.0-46.0) % Neutrophils # 8.3 H (1.3-7.7) k/uL ABG pO2 127 H (83-108) mmHg ABG O2 Saturation 99.0 H (94-97) % Potassium (3.5-5.1) mmol/L Chloride 110 H (98-107) mmol/L Carbon Dioxide 21 L (22-30) mmol/L Creatinine 2.02 H (0.52-1.04) mg/dL Glucose (74-99) mg/dL POC Glucose (mg/dL) (70-110) mg/dL Calcium 8.3 L (8.4-10.2) mg/dL Magnesium 2.4 H (1.6-2.3) mg/dL AST 203 H (14-36) U/L ALT 75 H (4-34) U/L Creatine Kinase 81427 H* (30-135) U/L Total Protein 5.2 L (6.3-8.2) g/dL Albumin 2.9 L (3.5-5.0) g/dL Lamotrigine (2.0-15.0) ug/mL Assessment and Plan Assessment: * Suicide attempt with overdose on multiple medications. Based upon examination, it is quite positive that she overdosed on Lamictal (with profound nystagmus, dizziness), and Benadryl, with anticholinergic effect, ibuprofen with liver and renal dysfunction. She may have overdosed on Imitrex as well producing excessive serotonin. * Acute delirium/metabolic encephalopathy, likely due to above. * Acute rhabdomyolysis * Acutely elevated hepatic enzymes * Acute renal insufficiency, slightly worse today * Hypokalemia * Bipolar disorder, borderline personality disorder, anxiety depression (per patient's father's report) * History of suicide attempt in the past Plan: * Patient is doing better. Her convulsions seems to have resolved. Patient is still intubated, but responding very appropriately. * Stat EEG performed today was abnormal due to presence of background disorganization with frontal intermittent rhythmic delta activity seen during the study. This is suggestive of generalized cerebral dysfunction as can be seen with toxic metabolic encephalopathy or related to diffuse structural brain abnormality. Clinical correlation is recommended. No clear-cut epileptiform activity was seen. Frontal intermittent rhythmic delta activity may be seen with encephalopathy, although may suggest underlying convulsive tendency. Follow-up EEG recommended, if clinically indicated. * Lamictal level 36.7(2-15), as of 10/11/2023. Patient was admitted 2 days prior on 10/09/2023, and suspect Lamictal level would have been higher if tested earlier. * Initial EEG performed 10/12/2023 was abnormal due to background slowing of moderate to severe degree, suggestive of generalized cerebral dysfunction as can be seen with toxic metabolic encephalopathy or related to medication effect. When the propofol was discontinued, the activity became more rhythmic, high amplitude delta slowing into words, during which the patient's pupils were constructing and dilating, and later also started having some slow body contractions. This may indicate convulsive tendency. May consider prolonged EEG for further evaluation. * CT head showed no acute process. * Patient has developed rhabdomyolysis, with CK level of 74,970, repeat levels improved 20,436. Symptomatic treatment. * Hepatic functions have improved. * Hydration. * Telemetry monitoring * Seizure/fall precautions * Hold all medications for now. * Possible extubation in the morning. * Discussed with patient's parents and nursing staff.
[2023-10-14] MEDS ORDERED: HALOPERIDOL LACTATE 5 MG/ML 1 ML VIAL IVP PRN (08:16)
[2023-10-14] MEDS: levETIRAcetam IV 500 MG/5 ML VIAL IVP SCH ×2 (08:34→20:43)
[2023-10-14] MEDS: FAMOTIDINE 20 MG/2 ML VIAL IV SCH (08:34)
[2023-10-14] MEDS: ENOXAPARIN 40 MG/0.4 ML SYRINGE SQ SCH (08:34)
[2023-10-14] MEDS: MIDAZOLAM HCL 200 MG in SODIUM CHLORIDE 0.9% 60 ML IV SCH (09:43)
[2023-10-14] MEDS ORDERED: hydrALAZINE HCL 20 MG/ML 1 ML VIAL IVP PRN (10:54)
--- NOTE | 2023-10-14 10:54 | P.PN ---
Subjective Patient is seen for follow-up for acute kidney injury, ATN currently nonoliguric. She was admitted with a suicide attempt with overdose on Benadryl and Lamictal. Patient has been extubated. Maintained on half normal saline at 150 mL an hour. Status post D5W for hypernatremia. Sodium today is at 145. Urine output at about 100 mL an hour. Serum creatinine decreased to 1.6 mg/dL today. Blood pressure has been elevated Objective - Vital Signs Vital signs: Vital Signs Temp 98 F 10/14/23 08:00 Pulse 86 10/14/23 09:30 Resp 27 H 10/14/23 09:30 BP 157/96 10/14/23 09:30 Pulse Ox 87 L 10/14/23 09:30 FiO2 35 10/13/23 20:00 Intake & Output 10/13/23 10/14/23 10/14/23 18:59 06:59 18:59 Intake Total 0019.099 6881.090 413.806 Output Total 335 1025 200 Balance 7569.826 8299.090 213.806 Weight 109 kg Intake: IV 1200 Sodium Chloride 0.9% 1, 1200 000 ml @ 150 mls/hr IV . Q6H40M [facility] Rx#:[id number] Intake, IV Titration 267.948 6634.090 413.806 Amount Dexmedetomidine/0.9% NaCl 117.403 246.090 113.806 (Pmx) 400 mcg In Empty Bag 1 bag @ 0.2 MCG/KG/HR 5.45 mls/hr IV .[id number] [facility] Rx#:[id number] Midazolam HCl 200 mg In 10.167 Sodium Chloride 0.9% 60 ml @ 1 MG/HR 0.5 mls/hr IV .Q24H [facility] Rx#: [id number] Sodium Chloride 0.45% 1, 450 1800 300 000 ml @ 150 mls/hr IV . Q6H40M [facility] Rx#:[id number] propofoL 1,000 mg In 115.910 Empty Bag 1 bag @ 15 MCG/ KG/MIN 9.389 mls/hr IV . [id number] [facility] Rx#:[id number] Output: Urine 335 1025 200 Other: Voiding Method Indwelling Catheter Indwelling Catheter Indwelling Catheter ABP, PAP, CO, CI - Last Documented Arterial Blood Pressure 127/88 - Exam Patient is extubated She is comfortable. Maintained on Precedex No acute distress Abdomen is soft nontender Examination of lower extremities shows no edema. Examination of the heart S1 and S2 Examination of the lungs bilateral breath sounds are heard - Labs CBC & Chem 7: 10/14/23 03:19 10/14/23 03:19 Labs: Abnormal Lab Results - Last 24 Hours (Table) 10/13/23 10/13/23 10/14/23 Range/Units 04:30 14:08 03:19 RBC (3.80-5.40) m/uL Hgb (11.4-16.0) gm/dL Hct (34.0-46.0) % ABG pH 7.34 L (7.35-7.45) ABG pO2 118 H (83-108) mmHg ABG O2 Saturation 98.8 H (94-97) % Chloride 116 H (98-107) mmol/L Carbon Dioxide 20 L (22-30) mmol/L BUN 19 H (7-17) mg/dL Creatinine 1.60 H (0.52-1.04) mg/dL AST 231 H (14-36) U/L ALT 111 H (4-34) U/L Creatine Kinase 25691 H* (30-135) U/L Total Protein 5.3 L (6.3-8.2) g/dL Albumin 2.8 L (3.5-5.0) g/dL Procalcitonin 0.40 H (0.02-0.09) ng/mL 10/14/23 Range/Units 03:19 RBC 3.55 L (3.80-5.40) m/uL Hgb 10.0 L (11.4-16.0) gm/dL Hct 29.9 L (34.0-46.0) % ABG pH (7.35-7.45) ABG pO2 (83-108) mmHg ABG O2 Saturation (94-97) % Chloride (98-107) mmol/L Carbon Dioxide (22-30) mmol/L BUN (7-17) mg/dL Creatinine (0.52-1.04) mg/dL AST (14-36) U/L ALT (4-34) U/L Creatine Kinase (30-135) U/L Total Protein (6.3-8.2) g/dL Albumin (3.5-5.0) g/dL Procalcitonin (0.02-0.09) ng/mL Assessment and Plan Assessment: 1. Acute kidney injury secondary to ATN. Patient has rhabdomyolysis[place] [address] [place] [address]. Varina level not high. Renal function is improving.. Maintained on IV fluids. Baseline creatinine 0.8-0.9. 2. Suicide attempt. She took multiple medications including Benadryl and Lamictal. 3. Seizures. 4. Metabolic acidosis secondary to acute kidney injury, IV fluids. Can also be from lactic acidosis from seizures. 5. Bipolar disorder. 6. Hypernatremia from lack oral water intake. Patient not polyuric. Status post D5W and currently maintained on half normal saline. Plan: Repeat sodium this evening. Add IV hydralazine when necessary Decrease IV fluids
--- NOTE | 2023-10-14 11:30 | P.PN ---
Subjective Progress Note Date: 10/14/23 Principal diagnosis: Multiple drug overdose This is a 23-year-old female with known history of bipolar disorder, depression, previous history of suicidal attempts, patient was brought into the ER on 10/09/23 at 6:3 0 p.m. and apparently the patient ingested an unknown amount of lamotrigine 100 mg, buspirone, Benadryl, Sumatriptan, and lithium and apoquel. While in the ER, the patient was noted to be initially stable, and she was seen by many consultants while in the ER including psychiatry. Patient went on to develop worsening symptoms of psychosis, involuntary muscle movements, possible seizures, and the first time I knew about this patient was early evening yesterday when the admitting physician Dr. Orozco called me , and the patient was requiring significant amount of benzodiazepines to keep her calm. Shortly after I talked over the phone, patient was intubated and she was having intermittent seizures. Patient was sent to the ICU, she was placed on Versed drip at 15 mg per hour and propofol at 50 mcg/kg/m. Neurology who have ready seen the patient, loaded her with Keppra, and the patient was kept intubated and mechanically ventilated overnight. No further seizures were noted. Patient is now on assist control rate of 18 tidal volume 450 FiO2 40% and PEEP of 5 ABG showed a pO2 of 99 pCO2 40 pH of 7.29. When the patient was intubated yes terday, I have recommended adjustment of the endotracheal tube because it was initially in the right mainstem bronchus, and this was done shortly after. Apparently was in control was aware of this patient, and the recommendation was mostly treatment with benzodiazepines. And no other specific treatment was recommended. This morning the patient remains on propofol at 50 mg/kg/m and on Versed 15 mg/h she is on IV fluid at 75 mL per hour in the form of D5W. Her CT of the brain and EEG are negative so far. Her urine output is about 40 mL per hour. Patient received 1 amp of bicarbonate earlier for acidosis/metabolic acidosis and my plan is to taper down Versed hopefully discontinue Versed today, and keep the patient on propofol. In the meantime I went ahead and established right radial arterial line in this patient she has enough IV access for the time being, does not require a central line placement. Chest x-ray showed adequate placement of the endotracheal tube and some left sided infiltrates atelectasis most likely secondary to the fact that the endotracheal tube was in the right mainstem bronchus when the patient was in the ER. Her basic metabolic profile is normal except sodium is 148 potassium 3.8 bicarbonate 17 BUN is 14 and creatinine is up to 1.51, and that being addressed by nephrology on the case. WBC count is 11.5 hemoglobin is 12.0. Platelets are normal however the patient seems to have developed significantly elevated CPK with 74,970, and I believe that is probably a picture of rhabdomyolysis from her seizures yesterday, and she developing acute kidney injury from rhabdomyolysis Patient was seen and examined today on 10/13/2023, remains in the ICU, intubated and mechanically ventilated. Patient is on assist control rate of 18 tidal volume 450 FiO2 40% and PEEP of 5 ABG showed a pO2 of 127 pCO2 39 pH of 7.36. Patient remains on propofol at 50 mcg/kg/m Versed at 5 mg per hour, she is on vital HPF 50 mL/h IV fluid 0.9 normal saline at 1 50 mL per hour. Patient is sedated, however when the patient went off propofol and Versed I was able to wak e of the patient, follows simple instructions but seems to be quite lethargic and sleepy hence I stressed transition the patient to a pressure support mode of mechanical ventilation with pressure support of 12 and CPAP. She is not quite ready to be extubated mostly because of her mental status and she seems to be quite sedated. I did recommend however stopping propofol and Versed. Her urine output is about 30-40 mL/h, creatinine is a bit worse today compared to yesterday, CPK is coming down to the 20,400 range. It was 74,000 yesterday. CBC showed WBC count of 10.4 hemoglobin 10.5. Patient was evaluated again today on 10/14/2023, remains in the ICU, remains on Precedex, at 1 g, per kilo per hour IV fluid D5 45 and 150 ML per hour. Patient was extubated yesterday, and she required significant amount of sedation after extubation because she was extremely agitated, I had multiple calls regarding this patient after extubation, received Ativan, along with Precedex, and the agitation was extremely difficult to control. Been recommended Haldol, and one dose was given that seemed to be most beneficial to control her sedation and agitation. Patient is doing well today, she is definitely not agitated, she is sedated, and does not seem to be in any distress, she is on 2 L nasal can nula. As far as her agitation is concerned, we will continue Precedex, we will restart the patient back on Seroquel, will use Haldol if necessary for extreme agitation. In the meantime I'm planning to keep the patient in the ICU and monitor at least for the next 24 hours. No seizure activities in the last 24 hours. Labs showed WBC count of 7.5 hemoglobin is 10, sodium 145 potassium 4.4 ER and is 19 and creatinine is down to 1.60, from 2.0 yesterday. And 1.93 the day before. CPK is down to 20,000. AST 231 and ALT is 111 improving steadily. Objective - Vital Signs Vital signs: Vital Signs Temp 98 F 10/14/23 08:00 Pulse 86 10/14/23 09:30 Resp 27 H 10/14/23 09:30 BP 157/96 10/14/23 09:30 Pulse Ox 87 L 10/14/23 09:30 FiO2 35 10/13/23 20:00 Intake & Output 10/13/23 10/14/23 10/14/23 18:59 06:59 18:59 Intake Total 5343.741 7430.090 413.806 Output Total 335 1025 200 Balance 2926.062 5325.090 213.806 Weight 109 kg Intake: IV 1200 Sodium Chloride 0.9% 1, 1200 000 ml @ 150 mls/hr IV . Q6H40M [facility] Rx#:[id number] Intake, IV Titration 010.150 2718.090 413.806 Amount Dexmedetomidine/0.9% NaCl 117.403 246.090 113.806 (Pmx) 400 mcg In Empty Bag 1 bag @ 0.2 MCG/KG/HR 5.45 mls/hr IV .[id number] [facility] Rx#:[id number] Midazolam HCl 200 mg In 10.167 Sodium Chloride 0.9% 60 ml @ 1 MG/HR 0.5 mls/hr IV .Q24H [facility] Rx#: [id number] Sodium Chloride 0.45% 1, 450 1800 300 000 ml @ 150 mls/hr IV . Q6H40M [facility] Rx#:[id number] propofoL 1,000 mg In 115.910 Empty Bag 1 bag @ 15 MCG/ KG/MIN 9.389 mls/hr IV . [id number] [facility] Rx#:[id number] Output: Urine 335 1025 200 Other: Voiding Method Indwelling Catheter Indwelling Catheter Indwelling Catheter ABP, PAP, CO, CI - Last Documented Arterial Blood Pressure 127/88 - Exam Physical Exam: Revealed 23-year-old female, obese, on 2 L nasal cannula, on Precedex, not in distress. Head: Atraumatic normocephalic. HEENT:[Neck is supple.] [No neck masses.] [No thyromegaly.] [No JVD.] Chest: [Clear throughout, no crackles, no rhonchi, no wheezes.] Cardiac Exam: [Normal S1 and S2, no S3 gallop, no murmur.] Abdomen: [Obese, Soft, nontender, no megaly, no rebound, no guarding, normal bowel sounds.] Extremities: [No clubbing, no edema, no cyanosis.] Good pulses bilaterally. Neurological Exam: Arousable, alert and oriented 3, no gross focal deficits. Psychiatric: Patient is arousable, normal mood, affect, and normal mental status Skin: Multiple tattoos, no rashes - Labs CBC & Chem 7: 10/14/23 03:19 10/14/23 03:19 Labs: Abnormal Lab Results - Last 24 Hours (Table) 10/13/23 10/13/23 10/14/23 Range/Units 04:30 14:08 03:19 RBC (3.80-5.40) m/uL Hgb (11.4-16.0) gm/dL Hct (34.0-46.0) % ABG pH 7.34 L (7.35-7.45) ABG pO2 118 H (83-108) mmHg ABG O2 Saturation 98.8 H (94-97) % Chloride 116 H (98-107) mmol/L Carbon Dioxide 20 L (22-30) mmol/L BUN 19 H (7-17) mg/dL Creatinine 1.60 H (0.52-1.04) mg/dL AST 231 H (14-36) U/L ALT 111 H (4-34) U/L Creatine Kinase 54153 H* (30-135) U/L Total Protein 5.3 L (6.3-8.2) g/dL Albumin 2.8 L (3.5-5.0) g/dL Procalcitonin 0.40 H (0.02-0.09) ng/mL 10/14/23 Range/Units 03:19 RBC 3.55 L (3.80-5.40) m/uL Hgb 10.0 L (11.4-16.0) gm/dL Hct 29.9 L (34.0-46.0) % ABG pH (7.35-7.45) ABG pO2 (83-108) mmHg ABG O2 Saturation (94-97) % Chloride (98-107) mmol/L Carbon Dioxide (22-30) mmol/L BUN (7-17) mg/dL Creatinine (0.52-1.04) mg/dL AST (14-36) U/L ALT (4-34) U/L Creatine Kinase (30-135) U/L Total Protein (6.3-8.2) g/dL Albumin (3.5-5.0) g/dL Procalcitonin (0.02-0.09) ng/mL Assessment and Plan Assessment: Impression: Acute hypoxic respiratory failure secondary to drug overdose, multiple drugs, mostly with excessive anticholinergic symptoms, requiring intubation and mechanical ventilation, patient was extubated on 10/13/2023 Suicidal ideation and suicidal attempt History of bipolar disorder, and depression Acute rhabdomyolysis Acute seizure disorder secondary to multiple drugs overdose \ acute kidney injury secondary to ATN and rhabdomyolysis with significantly elevated CPK, improving. Acute metabolic acidosis secondary to kidney injury and secondary to seizures, resolved Hypovolemic hypernatremia, resolved Recommendation: Continue Precedex Restart Seroquel Continue Keppra Continue seizure precautions Continue IV fluid and monitor electrolytes, continue to monitor renal profile and CPK Continue GI and DVT prophylaxis Advanced diet as tolerated Reconsult psychiatry Continue to monitor in the ICU for the next 24 hours May need inpatient psychiatry once the patient is cleared medically for transfer to psych [facility], not quite cleared medically at this point. We will continue to follow Time with Patient: Less than 30
[2023-10-14 11:34] LABS: Glucose,Whole Blood 91 mg/dL (70-110)
[2023-10-14] MEDS ORDERED: bisacodyL 10 MG SUPP RECTAL PRN (13:07)
--- NOTE | 2023-10-14 13:17 | P.PN ---
Subjective Progress Note Date: 10/14/23 23-year-old female came in the with the concerns of overdose patient was attempting suicide as per the family members. Patient to these medications approximately 9:52 PM on October 08 which was couple days ago patient was okay when she came in started getting worse started getting agitated drowsy and was subsequently admitted to the medicine service because of that reason. Patient the was found to have 2 bottles of Lamictal 100 mg, buspirone, diphenhydramine, sumatriptan, 6 lithium the patient is presently agitated, having muscle spasms horizontal nystagmus all of which are consistent with anticholinergic side effects can be secondary to sumatriptan overdose. Patient is receiving Valium at this time will add Ativan at an as-needed basis as well. Patient is getting IV fluids at 1 50 mL per hour patient had nausea vomiting unable to tolerate any oral medications and activated charcoal. Patient is completely confused at this time. EKG did not show any QT prolongation. 10/12/2023 Patient was seen in follow up today admitted to the intensive care unit. Currently intubated and sedated with FiO2 of 40%, patient was intubated for airway protection. Was having seizure like activity suspected. EEG shows background slowing of moderate to severe degree suggestive generalized cerebral dysfunction as seen with toxic metabolic encephalopathy or related to medication effect. When the propofol was discontinued the activity became more rhythmic high amplitude delta slowing and 2 Hz during which the patient's pupils are strict and dilating and also started having some slow body contractions. This may indicate convulsive tendency. Consider for prolonged EEG for further evaluation. Remains on IV valium, IVP keppra, IV versed running at 4.5 mls/hr, she is sedated with propofol. Her labs today are showing sodium 148, potassium 3.8, BUN 14, creatinine 1.51. AST/ALT elevated, creatine kinase 00925. 10/13/2023 Patient evaluated intensive care unit currently intubated however she is off the propofol and she is responsive. Plan is for extubation today. Chest x-ray today shows no acute cardiopulmonary disease. Patient Had a repeat EEG last night which showed improvement per neurology although the official reports are not resulted. Lamictal level did come back at 36.7. LFTs and creatinine kinase are improving. Creatinine of 2.02 today. Patient is being followed closely by nephrology and remains in normal saline at 150 ML per hour. Additionally she is on IV Keppra, IV Versed, Valium. Patient is also on IV precedex. Patient is on enteral feeding. 10/14/2023 Patient remains in the intensive care unit. She was extubated without incident and continues on nasal cannula at 2 L. She is awake and alert and appropriately responding to questions. She is aware of her name and birthday and knows that her family is at the bedside. She is scheduled to get a repeat EEG. Renal function is improving her CK and LFTs remaining elevated. Remains on IV Keppra, Precedex drip and IV Valium. Review of Systems Constitutional: reports fatigue denied any fever. Cardio vascular: denied any chest pain, palpitations Gastrointestinal: denied any nausea, vomiting, diarrhea Pulmonary: Denied any shortness of breath cough Neurologic denied any new focal deficits All inpatient medications were reviewed and appropriate changes in these medications as dictated in the interval history and assessment and plan. PHYSICAL EXAMINATION: GENERAL: The patient is alert and oriented x3, not in any acute distress. Well developed, well nourished. HEENT: Pupils are round and equally reacting to light. EOMI. No scleral icterus. No conjunctival pallor. Normocephalic, atraumatic. No pharyngeal erythema. No thyromegaly. CARDIOVASCULAR: S1 and S2 present. No murmurs, rubs, or gallops. PULMONARY: Chest is clear to auscultation, no wheezing or crackles. ABDOMEN: Soft, nontender, nondistended, normoactive bowel sounds. No palpable organomegaly. MUSCULOSKELETAL: No joint swelling or deformity. EXTREMITIES: No cyanosis, clubbing, or pedal edema. NEUROLOGICAL: Gross neurological examination did not reveal any focal deficits. Diffuse weakness SKIN: No rashes. Assessment and plan -Drug overdose mostly due to Benadryl and sumatriptan lithium and lamictal; patients levels were normal. Lamictal level came back elevated at 36.7. Patient had anticholinergic side effects having myoclonus and concern for seizure like activity and patient was intubated and sedated currently in the intensive care unit. Patient has been continued on IV keppra, IV versed has been held. On IV precedex. -Acute hypoxic respiratory failure from the overdose requiring Mechanical ventilator monitoring clinically patient has improved patient was extubated on 10/13/23 and currently on 2L of oxygen. -Suicidal ideation and suicide attempt: Psychiatry evaluated the patient does meet need for IP placement when medically stable. -Horizontal nystagmus secondary to anticholinergic side effects, supportive care continue with the Valium. This is improving. -Acute rhabdomyolysis secondary to JOCELYN/Myoclonus with elevated creatine kinase recommend to monitor LFTS/INR levels. Levels are currently improving and will recommend to repeat labs in the AM. -Acute kidney injury secondary to acute tubular necrosis and the rhabdo, nephrology has been consulted for monitoring patient will be hydrated and monitor levels daily -Bipolar disorder and depression -Nicotine use DVT prophylaxis: Lovenox Gi prophylaxis: Pepcid Full Code Patients family at the bedside updated on plan of care more than 35 minutes spent in coordination of care. Patient will remain in the ICU overnight. Scheduled to undergo follow-up EEG. We will order a chest x-ray as patient does have low-grade fevers. Also encourage incentive spirometer use. Patient continues on Precedex for acute agitation postextubation with Seroquel added. IV hydralazine added per nephrology for elevated pressures. Patient remains NPO. Pulmonary, nephrology, neurology following closely. Recommend to repeat labs in the morning. Physical therapy and occupational therapy have been consulted for evaluation. The impression and plan of care has been dictated by Shu Mccoy, Nurse Practitioner as directed. Dr. Pam MD I have performed a history and physical examination and medical decision making of this patient, discussed the same with the dictator, and agree with the dictators assessment and plan as written, documented as a scribe. Based on total visit time, I have performed more than 50% of this visit. Objective - Vital Signs Vital signs: Vital Signs Temp 97.9 F 10/14/23 04:00 Pulse 75 10/14/23 07:00 Resp 16 10/14/23 07:00 BP 149/95 10/14/23 07:00 Pulse Ox 97 10/14/23 07:00 FiO2 35 10/13/23 20:00 Intake & Output 10/13/23 10/14/23 10/14/23 18:59 06:59 18:59 Intake Total 1213.040 7902.090 Output Total 335 1025 Balance 8509.234 6380.090 Weight 109 kg Intake: IV 1200 Sodium Chloride 0.9% 1, 1200 000 ml @ 150 mls/hr IV . Q6H40M [facility] Rx#:[id number] Intake, IV Titration 895.771 9202.090 Amount Dexmedetomidine/0.9% NaCl 117.403 246.090 (Pmx) 400 mcg In Empty Bag 1 bag @ 0.2 MCG/KG/HR 5.45 mls/hr IV .[id number] [facility] Rx#:[id number] Midazolam HCl 200 mg In 10.167 Sodium Chloride 0.9% 60 ml @ 1 MG/HR 0.5 mls/hr IV .Q24H [facility] Rx#: [id number] Sodium Chloride 0.45% 1, 450 1800 000 ml @ 150 mls/hr IV . Q6H40M [facility] Rx#:[id number] propofoL 1,000 mg In 115.910 Empty Bag 1 bag @ 15 MCG/ KG/MIN 9.389 mls/hr IV . [id number] [facility] Rx#:[id number] Output: Urine 335 1025 Other: Voiding Method Indwelling Catheter Indwelling Catheter ABP, PAP, CO, CI - Last Documented Arterial Blood Pressure 127/88 - Labs CBC & Chem 7: 10/14/23 03:19 10/14/23 12:27 Labs: Abnormal Lab Results - Last 24 Hours (Table) 10/13/23 10/13/23 10/14/23 Range/Units 04:30 14:08 03:19 RBC (3.80-5.40) m/uL Hgb (11.4-16.0) gm/dL Hct (34.0-46.0) % ABG pH 7.34 L (7.35-7.45) ABG pO2 118 H (83-108) mmHg ABG O2 Saturation 98.8 H (94-97) % Chloride 116 H (98-107) mmol/L Carbon Dioxide 20 L (22-30) mmol/L BUN 19 H (7-17) mg/dL Creatinine 1.60 H (0.52-1.04) mg/dL AST 231 H (14-36) U/L ALT 111 H (4-34) U/L Creatine Kinase 75499 H* (30-135) U/L Total Protein 5.3 L (6.3-8.2) g/dL Albumin 2.8 L (3.5-5.0) g/dL Procalcitonin 0.40 H (0.02-0.09) ng/mL 10/14/23 Range/Units 03:19 RBC 3.55 L (3.80-5.40) m/uL Hgb 10.0 L (11.4-16.0) gm/dL Hct 29.9 L (34.0-46.0) % ABG pH (7.35-7.45) ABG pO2 (83-108) mmHg ABG O2 Saturation (94-97) % Chloride (98-107) mmol/L Carbon Dioxide (22-30) mmol/L BUN (7-17) mg/dL Creatinine (0.52-1.04) mg/dL AST (14-36) U/L ALT (4-34) U/L Creatine Kinase (30-135) U/L Total Protein (6.3-8.2) g/dL Albumin (3.5-5.0) g/dL Procalcitonin (0.02-0.09) ng/mL Assessment and Plan Time with Patient: Greater than 30
--- NOTE | 2023-10-14 14:41 | XR ---
EXAMINATION TYPE: XR chest 1V portable DATE OF EXAM: 10/14/2023 COMPARISON: 10/13/2023 HISTORY: Fever TECHNIQUE: Single frontal view of the chest is obtained. FINDINGS: There is been interval removal of the ET tube and NG tube. There is no abnormal airspace/consolidative opacity or interstitial opacity. There is no pleural effusion, pleural thickening or pneumothorax. The graft heart and pulmonary vascu lature are normal. The osseous structures are intact. IMPRESSION: No acute cardiopulmonary disease. IMPRESSION: No acute process.
--- NOTE | 2023-10-14 14:41 | P.PN ---
Subjective Progress Note Date: 10/14/23 10/14/2023: Patient was seen for a follow-up. Patient's parents were present today. Patient was extubated yesterday. Patient was initially on BiPAP. Now that has been taken off also. No further seizures reported. No convulsive activity. Patient has been slightly irritable at times. She is currently on Precedex 0.7 mcg/kg/h. Patient continues to be encephalopathic. At present she wants to go home. She believes that she is in [facility]. She wants to go to [facility], as her boyfriend Micah previously admitted to that hospital, and the doctors in [facility] "saved his life". She wants Micah to be here, but patient's parents mentioned that they broke off in March 2023, and they have been together for about 4 years prior to breaking up. 10/13/2023: Patient was seen for a follow-up. Patient had an EEG performed today. Propofol was discontinued just before the EEG was started at 9 AM. Versed 5 mg per hour was discontinued during the EEG was going on. At present (2:12 PM) patient is currently on Precedex 0.6 infusion, to control agitation. Patient was attempted on extubation, but apparently her mentation was not completely normal, was not making eye contact, therefore extubation was put on hold. No obvious recurrent seizures. Patient denies headache at this time. She is answering appropriately despite being on intubation. 10/12/2023: Patient since last seen in the ER, developed conversions for which she was started on Versed drip. Patient was intubated for mechanical ventilation in the ER and then transferred to ICU. In order to control the conversions, patient was placed on high dose Versed 15 mg per hour and propofol 50 mcg/mg per minute. I had been in touch with the nursing staff multiple times on the phone about seizure management. Patient was given loading dose of Keppra 1500 mg and maintained on Keppra 1500 mg twice a day. Since this morning, the Versed drip has been decreased gradually down to 9 mg per hour. She is still on propofol at the same dose as mentioned above. Patient's family members were present today. Patient probably overdosed on Lamictal, Imitrex, ibuprofen, Benadryl, BuSpar. Exact amount of medications uncertain. Objective - Vital Signs Vital signs: Vital Signs Temp 99.9 F H 10/14/23 11:30 Pulse 80 10/14/23 11:30 Resp 23 10/14/23 12:00 BP 140/85 10/14/23 12:00 Pulse Ox 94 L 10/14/23 12:00 FiO2 35 10/13/23 20:00 Intake & Output 10/13/23 10/14/23 10/14/23 18:59 06:59 18:59 Intake Total 4427.894 5846.090 805.156 Output Total 335 1025 435 Balance 3957.962 9838.090 370.156 Weight 109 kg Intake: IV 1200 Sodium Chloride 0.9% 1, 1200 000 ml @ 150 mls/hr IV . Q6H40M [facility] Rx#:[id number] Intake, IV Titration 036.342 4156.090 805.156 Amount Dexmedetomidine/0.9% NaCl 117.403 246.090 130.156 (Pmx) 400 mcg In Empty Bag 1 bag @ 0.2 MCG/KG/HR 5.45 mls/hr IV .[id number] [facility] Rx#:[id number] Midazolam HCl 200 mg In 10.167 Sodium Chloride 0.9% 60 ml @ 1 MG/HR 0.5 mls/hr IV .Q24H [facility] Rx#: [id number] Sodium Chloride 0.45% 1, 450 1800 675 000 ml @ 75 mls/hr IV . [id number] [facility] Rx#:[id number] propofoL 1,000 mg In 115.910 Empty Bag 1 bag @ 15 MCG/ KG/MIN 9.389 mls/hr IV . [id number] [facility] Rx#:[id number] Output: Urine 335 1025 435 Other: Voiding Method Indwelling Catheter Indwelling Catheter Indwelling Catheter ABP, PAP, CO, CI - Last Documented Arterial Blood Pressure 127/88 - Exam Patient at present extubated, appears quite confused. She states it is March, then she said is October and the year is 2022. She believes that she is in [facility]. She wants to go home. She appears somewhat groggy. Patient currently on Precedex 0.7 g/kg per hour. 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 Patient moves b ilateral lower extremities equally. Patient's pupils are about 4 mm, reacting. Her gaze is much improved although still minimally upwards. - Labs CBC & Chem 7: 10/14/23 03:19 10/14/23 12:27 Labs: Abnormal Lab Results - Last 24 Hours (Table) 10/13/23 10/13/23 10/14/23 Range/Units 04:30 14:08 03:19 RBC (3.80-5.40) m/uL Hgb (11.4-16.0) gm/dL Hct (34.0-46.0) % ABG pH 7.34 L (7.35-7.45) ABG pO2 118 H (83-108) mmHg ABG O2 Saturation 98.8 H (94-97) % Chloride 116 H (98-107) mmol/L Carbon Dioxide 20 L (22-30) mmol/L BUN 19 H (7-17) mg/dL Creatinine 1.60 H (0.52-1.04) mg/dL AST 231 H (14-36) U/L ALT 111 H (4-34) U/L Creatine Kinase 48846 H* (30-135) U/L Total Protein 5.3 L (6.3-8.2) g/dL Albumin 2.8 L (3.5-5.0) g/dL Procalcitonin 0.40 H (0.02-0.09) ng/mL 10/14/23 Range/Units 03:19 RBC 3.55 L (3.80-5.40) m/uL Hgb 10.0 L (11.4-16.0) gm/dL Hct 29.9 L (34.0-46.0) % ABG pH (7.35-7.45) ABG pO2 (83-108) mmHg ABG O2 Saturation (94-97) % Chloride (98-107) mmol/L Carbon Dioxide (22-30) mmol/L BUN (7-17) mg/dL Creatinine (0.52-1.04) mg/dL AST (14-36) U/L ALT (4-34) U/L Creatine Kinase (30-135) U/L Total Protein (6.3-8.2) g/dL Albumin (3.5-5.0) g/dL Procalcitonin (0.02-0.09) ng/mL Assessment and Plan Assessment: * Suicide attempt with overdose on multiple medications. Based upon examination, it is quite positive that she overdosed on Lamictal (with profound nystagmus, dizziness), and Benadryl, with anticholinergic effect, ibuprofen with liver and renal dysfunction. She may have overdosed on Imitrex as well producing excessive serotonin. * Status post extubation * Acute delirium/metabolic encephalopathy, likely due to above. * Acute rhabdomyolysis * Acutely elevated hepatic enzymes, improving * Acute renal insufficiency, improving today * Bipolar disorder, borderline personality disorder, anxiety depression (per patient's father's report) * History of suicide attempt in the past Plan: * Patient is doing better. Her convulsions seems to have resolved. Patient is now extubated, but appears significantly encephalopathic. * EEG cannot be performed today, as the dietary server from [facility] has broke (per Dr. Kulkarni), and EEG not available today. We will check prolonged EEG for 1 hour in the morning. * Repeat EEG performed 10/13/2023 was abnormal due to presence of background disorganization with frontal intermittent rhythmic delta activity seen during the study. This is suggestive of generalized cerebral dysfunction as can be seen with toxic metabolic encephalopathy or related to diffuse structural brain abnormality. Clinical correlation is recommended. No clear-cut epileptiform activity was seen. Frontal intermittent rhythmic delta activity may be seen with encephalopathy, although may suggest underlying convulsive tendency. Follow-up EEG recommended, if clinically indicated. * Repeat Lamictal level. Lamictal level 36.7(2-15), on 10/11/2023. * Patient currently on Keppra 1500 mg twice a day. Due to decreased renal functions, we will check Keppra level. And also decrease the dosing of Keppra down to 1000 mg twice a day, starting from tomorrow a.m. Skip the dose of Keppra tonight. * Initial EEG performed 10/12/2023 was abnormal due to background slowing of moderate to severe degree, suggestive of generalized cerebral dysfunction as can be seen with toxic metabolic encephalopathy or related to medication effect. When the propofol was discontinued, the activity became more rhythmic, high amplitude delta slowing into words, during which the patient's pupils were constructing and dilating, and later also started having some slow body contractions. This may indicate convulsive tendency. May consider prolonged EEG for further evaluation. * CT head showed no acute process. * Patient has developed rhabdomyolysis, with CK level of 74,970, repeat levels improved 20,436 and as of today is . Symptomatic treatment. Hydration, nephrology on board. * Hepatic functions have slightly worsened today, although renal functions have improved today. * Hydration. * Telemetry monitoring * Seizure/fall precautions * Hold all medications for now. * Psychiatry to follow for mental health. * Discussed with patient's parents and nursing staff.
[2023-10-14] MEDS: NICOTINE 14MG/24HR PATCH TRANSDERM SCH (17:21)
[2023-10-14 18:32] LABS: Glucose,Whole Blood 81 mg/dL (70-110)
[2023-10-14] MEDS ORDERED: FUROSEMIDE 10 MG/ML 4 ML VIAL IV STA (22:34)
[2023-10-15 00:44] LABS: Glucose,Whole Blood 84 mg/dL (70-110)
[2023-10-15 03:56] LABS: Basophils % (A) 0 %; Eosinophils # (A) 0.2 k/uL (0-0.7); Eosinophils % (A) 3 %; HCT 32.9 % (34.0-46.0); Lymphocytes # (A) 1.5 k/uL (1.0-4.8); Lymphocytes % (A) 19 %; MCH 27.4 pg (25.0-35.0); MCHC 33.4 g/dL (31.0-37.0); MCV 82.3 fL (80.0-100.0); Mean Platelet Volume 7.3; Monocytes # (A) 0.3 k/uL (0-1.0); Monocytes % (A) 4 %; Neutrophils # (A) 5.8 k/uL (1.3-7.7); Neutrophils % (A) 74 %; Platelet Count 286 k/uL (150-450); RBC 3.99 m/uL (3.80-5.40); RDW 14.5 % (11.5-15.5); WBC 7.9 k/uL (3.8-10.6)
[2023-10-15 04:20] LABS: ALT 118 U/L (4-34); AST 159 U/L (14-36); African American GFR (CKD) 59 (>60 ml/min/1.73 sqM); Albumin 3.2 g/dL (3.5-5.0); Alkaline Phosphatase 92 U/L (38-126); Anion Gap 13 mmol/L; Blood Urea Nitrogen 19 mg/dL (7-17); Calcium 9.2 mg/dL (8.4-10.2); Carbon Dioxide 24 mmol/L (22-30); Chloride 107 mmol/L (98-107); Glucose 73 mg/dL (74-99); Magnesium 1.6 mg/dL (1.6-2.3); Non-African American GFR(CKD) 51 (>60 ml/min/1.73 sqM); Potassium 3.4 mmol/L (3.5-5.1); Sodium 144 mmol/L (137-145); Total Bilirubin 0.6 mg/dL (0.2-1.3); Total Protein 5.9 g/dL (6.3-8.2)
[2023-10-15] MEDS ORDERED: Potassium Replacement Protocol 1 EACH MISC MISCELLANE PRN (04:30)
[2023-10-15 04:49] LABS: Creatine Kinase 6316 U/L (30-135)
[2023-10-15] MEDS: POTASSIUM CHLORIDE 10 MEQ in WATER FOR INJECTION 1 100ML.BAG IVPB SCH ×7 (05:02→11:40)
[2023-10-15 06:29] LABS: Glucose,Whole Blood 75 mg/dL (70-110)
[2023-10-15] MEDS ORDERED: levETIRAcetam IV 500 MG/5 ML VIAL IVP SCH (09:00)
[2023-10-15] MEDS: NICOTINE 14MG/24HR PATCH TRANSDERM SCH (09:14)
[2023-10-15] MEDS: FAMOTIDINE 20 MG/2 ML VIAL IV SCH (09:26)
[2023-10-15] MEDS: levETIRAcetam IV 500 MG/5 ML VIAL IVP SCH ×2 (09:26→20:28)
[2023-10-15] MEDS: ENOXAPARIN 40 MG/0.4 ML SYRINGE SQ SCH (09:26)
--- NOTE | 2023-10-15 10:44 | P.PN ---
Subjective Patient is seen for follow-up for acute kidney injury, ATN currently nonoliguric. She was admitted with a suicide attempt with overdose on Benadryl and Lamictal. Patient has been extubated. IV fluids discontinued overnight. Patient also received 1 dose of Lasix. She has diuresed quite well with 6.6 off urine for 24 hours.L Serum creatinine decreased to 1.4 mg/dL today. Blood pressure was elevated, improved with diuresis. Patient is awake and tolerating oral intake. CK level is down to 6316. Potassium is low at 3.4. Objective - Vital Signs Vital signs: Vital Signs Temp 98.1 F 10/15/23 08:00 Pulse 97 10/15/23 10:00 Resp 13 10/15/23 10:00 BP 135/90 10/15/23 10:00 Pulse Ox 97 10/15/23 10:00 FiO2 2 10/14/23 15:00 Intake & Output 10/14/23 10/15/23 10/15/23 18:59 06:59 18:59 Intake Total 1381.515 515.289 110 Output Total 1180 5425 325 Balance 201.515 -4909.711 -215 Weight 102.3 kg Intake: IV 100 Potassium Chloride 10 meq 100 In Water For Injection 1 100ml.bag @ 100 mls/hr IVPB Q1HR [facility] Rx#: [id number] Intake, IV Titration 1381.515 515.289 10 Amount Dexmedetomidine/0.9% NaCl 181.515 145.289 (Pmx) 400 mcg In Empty Bag 1 bag @ 0.2 MCG/KG/HR 5.45 mls/hr IV .[id number] [facility] Rx#:[id number] Sodium Chloride 0.45% 1, 1200 370 10 000 ml @ 75 mls/hr IV . [id number] [facility] Rx#:[id number] Output: Urine 1180 5425 325 Other: Voiding Method Indwelling Catheter Indwelling Catheter ABP, PAP, CO, CI - Last Documented Arterial Blood Pressure 127/88 - Exam Patient is awake, alert oriented 3 She is comfortable. No acute distress Abdomen is soft nontender Examination of lower extremities shows 1+ edema upper and lower extremities. 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 Acute kidney injury secondary to ATN. Patient has rhabdomyolysis[place] [address] and has decreased [place] 6316. [place] level not high. Renal function is improving.. Maintained on IV fluids. Baseline creatinine 0.8-0.9. 2. Suicide attempt. She took multiple medications including Benadryl and Lamictal. 3. Seizures. 4. Metabolic acidosis secondary to acute kidney injury, IV fluids. Can also be from lactic acidosis from seizures. 5. Bipolar disorder. 6. Hypernatremia from lack oral water intake. Patient not polyuric. Status post D5W . Plan: Continue off of IV fluids. Replace potassium Encourage increased free water intake. Repeat labs in a.m.
--- NOTE | 2023-10-15 11:45 | P.PN ---
Subjective Progress Note Date: 10/15/23 This is a 23-year-old female with known history of bipolar disorder, depression, previous history of suicidal attempts, patient was brought into the ER on 10/09/23 at 6:3 0 p.m. and apparently the patient ingested an unknown amount of lamotrigine 100 mg, buspirone, Benadryl, Sumatriptan, and lithium and apoquel. While in the ER, the patient was noted to be initially stable, and she was seen by many consultants while in the ER including psychiatry. Patient went on to develop worsening symptoms of psychosis, involuntary muscle movements, possible seizures, and the first time I knew about this patient was early evening yesterday when the admitting physician Dr. Orozco called me , and the patient was requiring significant amount of benzodiazepines to keep her calm. Shortly after I talked over the phone, patient was intubated and she was having intermittent seizures. Patient was sent to the ICU, she was placed on Versed drip at 15 mg per hour and propofol at 50 mcg/kg/m. Neurology who have ready seen the patient, loaded her with Keppra, and the patient was kept intubated and mechanically ventilated overnight. No further seizures were noted. Patient is now on assist control rate of 18 tidal volume 450 FiO2 40% and PEEP of 5 ABG showed a pO2 of 99 pCO2 40 pH of 7.29. When the patient was intubated yesterday, I have recommended adjustment of the endotracheal tube because it was initially in the right mainstem bronchus, and this was done shortly after. Apparently was in control was aware of this patient, and the recommendation was mostly treatment with benzodiazepines. And no other specific treatment was recommended. This morning the patient remains on propofol at 50 mg/kg/m and on Versed 15 mg/h she is on IV fluid at 75 mL per hour in the form of D5W. Her CT of the brain and EEG are negative so far. Her urine output is about 40 mL per hour. Patient received 1 amp of bicarbonate earlier for acidosis/metabolic acidosis and my plan is to taper down Versed hopefully discontinue Versed today, and keep the patient on propofol. In the meantime I went ahead and established right radial arterial line in this patient she has enough IV access for the time being, does not require a central line placement. Chest x-ray showed adequate placement of the endotracheal tube and some left sided infiltrates atelectasis most likely secondary to the fact that the endotracheal tube was in the right mainstem bronchus when the patient was in the ER. Her basic metabolic profile is normal except sodium is 148 potassium 3.8 bicarbonate 17 BUN is 14 and creatinine is up to 1.51, and that being addressed by nephrology on the case. WBC count is 11.5 hemoglobin is 12.0. Platelets are normal however the patient seems to have developed significantly elevated CPK with 74,970, and I believe that is probably a picture of rhabdomyolysis from her seizures yesterday, and s he developing acute kidney injury from rhabdomyolysis Patient was seen and examined today on 10/13/2023, remains in the ICU, intubated and mechanically ventilated. Patient is on assist control rate of 18 tidal volume 450 FiO2 40% and PEEP of 5 ABG showed a pO2 of 127 pCO2 39 pH of 7.36. Patient remains on propofol at 50 mcg/kg/m Versed at 5 mg per hour, she is on vital HPF 50 mL/h IV fluid 0.9 normal saline at 1 50 mL per hour. Patient is sedated, however when the patient went off propofol and Versed I was able to wake of the patient, follows simple instructions but seems to be quite lethargic and sleepy hence I stressed transition the patient to a pressure support mode of mechanical ventilation with pressure support of 12 and CPAP. She is not quite ready to be extubated mostly because of her mental status and she seems to be quite sedated. I did recommend however stopping propofol and Versed. Her urine output is about 30-40 mL/h, creatinine is a bit worse today compared to yes terday, CPK is coming down to the 20,400 range. It was 74,000 yesterday. CBC showed WBC count of 10.4 hemoglobin 10.5. Patient was evaluated again today on 10/14/2023, remains in the ICU, remains on Precedex, at 1 g, per kilo per hour IV fluid D5 45 and 150 ML per hour. Patient was extubated yesterday, and she required significant amount of sedation after extubation because she was extremely agitated, I had multiple calls regarding this patient after extubation, received Ativan, along with Precedex, and the agitation was extremely difficult to control. Been recommended Haldol, and one dose was given that seemed to be most beneficial to control her sedation and agitation. Patient is doing well today, she is definitely not agitated, she is sedated, and does not seem to be in any distress, she is on 2 L nasal cannula. As far as her agitation is concerned, we will continue Precedex, we will restart the patient back on Seroquel, will use Haldol if necessary for extreme agitation. In the meantime I'm planning to keep the patient in the ICU and monitor at least for the next 24 hours. No seizure activities in the last 24 hours. Labs showed WBC count of 7.5 hemoglobin is 10, sodium 145 potassium 4.4 ER and is 19 and creatinine is down to 1.60, from 2.0 yesterday. And 1.93 the day before. CPK is down to 20,000. AST 231 and ALT is 111 improving steadily. The patient is seen today 10/15/2023 in follow-up in the intensive care unit. She is more awake and alert today. Maintaining good O2 saturations in the 90s on 3 L/m per nasal cannula. She has been off the Precedex infusion since 5 AM. No seizure activity. White count 7.9. Hemoglobin 11.0. Platelets 286. Sodium 144. Potassium 3.4. Bicarb 24. BUN 19. Creatinine 1.44. Glucose 73. AST 159. ALT 118. Creatinine kinase 6316. She remains on Lovenox for DVT prophylaxis. NicoDerm patch in place. Continue on Keppra. spanish speaking babysitter is at the bedside. Objective - Vital Signs Vital signs: Vital Signs Temp 98.1 F 10/15/23 08:00 Pulse 97 10/15/23 10:00 Resp 13 10/15/23 10:00 BP 135/90 10/15/23 10:00 Pulse Ox 97 10/15/23 10:00 FiO2 2 10/14/23 15:00 Intake & Output 10/14/23 10/15/23 10/15/23 18:59 06:59 18:59 Intake Total 1381.515 515.289 110 Output Total 1180 5425 325 Balance 201.515 -2009.711 -215 Weight 102.3 kg 102.3 kg Intake: IV 100 Potassium Chloride 10 meq 100 In Water For Injection 1 100ml.bag @ 100 mls/hr IVPB Q1HR [facility] Rx#: [id number] Intake, IV Titration 1381.515 515.289 10 Amount Dexmedetomidine/0.9% NaCl 181.515 145.289 (Pmx) 400 mcg In Empty Bag 1 bag @ 0.2 MCG/KG/HR 5.45 mls/hr IV .[id number] [facility] Rx#:[id number] Sodium Chloride 0.45% 1, 1200 370 10 000 ml @ 75 mls/hr IV . [id number] [facility] Rx#:[id number] Output: Urine 1180 5425 325 Other: Voiding Method Indwelling Catheter Indwelling Catheter Indwelling Catheter ABP, PAP, CO, CI - Last Documented Arterial Blood Pressure 127/88 - Exam GENERAL EXAM: Alert, doesn't, 23-year-old female, on 3 L nasal cannula, comfortable in no apparent distress. HEAD: Normocephalic. EYES: Normal reaction of pupils, equal size. NOSE: Clear with pink turbinates. THROAT: No erythema or exudates. NECK: No masses, no JVD. CHEST: No chest wall deformity. LUNGS: Equal air entry with no crackles, wheeze, rhonchi or dullness. CVS: S1 and S2 normal with no audible murmur, regular rhythm. ABDOMEN: No hepatosplenomegaly, normal bowel sounds, no guarding or rigidity. SPINE: No scoliosis or deformity SKIN: No rashes CENTRAL NERVOUS SYSTEM: No focal deficits, tone is normal in all 4 extremities. EXTREMITIES: There is no peripheral edema. No clubbing, no cyanosis. Peripheral pulses are intact. - Labs CBC & Chem 7: 10/15/23 03:20 10/15/23 03:20 Labs: Abnormal Lab Results - Last 24 Hours (Table) 10/15/23 10/15/23 Range/Units 03:20 03:20 Hgb 11.0 L (11.4-16.0) gm/dL Hct 32.9 L (34.0-46.0) % Potassium 3.4 L (3.5-5.1) mmol/L BUN 19 H (7-17) mg/dL Creatinine 1.44 H (0.52-1.04) mg/dL Glucose 73 L (74-99) mg/dL AST 159 H (14-36) U/L ALT 118 H (4-34) U/L Creatine Kinase 6316 H* (30-135) U/L Total Protein 5.9 L (6.3-8.2) g/dL Albumin 3.2 L (3.5-5.0) g/dL Microbiology - Last 24 Hours (Table) 10/13/23 13:25 Urine Culture - Final Urine,Catheterized Assessment and Plan Assessment: Acute hypoxic respiratory failure secondary to drug overdose, multiple drugs, mostly with excessive anticholinergic symptoms, requiring intubation and mechanical ventilation, patient was extubated on 10/13/2023 Suicidal ideation and suicidal attempt History of bipolar disorder and depression Acute rhabdomyolysis Acute seizure disorder secondary to multiple drugs overdose Acute kidney injury secondary to ATN and rhabdomyolysis with significantly elevated CPK, improving Acute transaminitis secondary to above Acute metabolic acidosis secondary to kidney injury and secondary to seizures, resolved Hypovolemic hypernatremia, resolved Plan: The patient was seen and evaluated Labs and medications reviewed Currently stable and on 3 L Titrate down the FiO2 as tolerated Encouraged increased use of the incentive spirometer Cleared for transfer out of the intensive care unit spanish speaking babysitter needs to stay in attendance Plan is to transfer to inpatient psychiatric unit once medically stable I have personally seen and examined the patient, performed the documentation and the assessment and plan as written. Number of minutes spent on the visit: 10.
--- NOTE | 2023-10-15 13:40 | P.PN ---
Progress Note - Text Progress Note Date: 10/15/23 Interval history: Patient was seen today for psychiatric follow-up. Patient was in the ICU for several days then transferred back to the medical floors earlier today. Patient was seen up sitting in her chair, eating her lunch and talking to her sitter. She states that she is doing better today, was regretting the overdose. States that it was a suicide attempt. She asked more questions about her medications and also the medical management. We both spoke about patient needing to be transferred to the mental health unit once she is medically cleared. Denies any anxiety at this time. She is denying any auditory or visual hallucinations. Claims that she slept fairly last night. MENTAL STATUS EXAM: General Appearance: Patient mildly overweight, improved eye contact. appears to be stated age is alert, attempts to cooperate. Sitting in her chair. Patient appears to have poor hygiene and grooming, improving appearance. wearing hospital gown with improved eye contact. Behavior: Patient is sitting in her chair, attempts to cooperate Speech: Patient's speech is or clear today, fluent Mood/Affect: Patient reports their mood is "a bit better", affect is congruent and constricted Suicidality/Homicidality: Patient denies having any suicidal or homicidal ideation intent or plan. Perceptions: Patient denies any visual hallucinations and denies any auditory hallucinations Though content/process: More logical, goal oriented. No delusions or paranoia. Memory and concentration: AOX3, grossly intact for the purposes of this session Judgment and insight: poor, improving mildly IMPRESSIONS: Delirium, likely secondary to medication toxicity and adverse effects, improving Suicide attempt by overdose of medications Bipolar disorder depressed episode borderline personality disorder cannabis use disorder nicotine dependence PLAN: -At this time patient DOES meet criteria for inpatient psychiatric admission ONCE patient is medically cleared. -Delirium precautions recommended with patient including - avoiding use of narcotics and [employer] sedatives, limit anticholinergic medications when possible, frequent re-orientation, minimize use of restraints, open window shades during the day and close them at night -Would recommend the following medication changes/additions: We will hold off on other psychiatric medications until patients neurological and medical condition improves. Please attempting to limit the use of Ativan and benzodiazepines unless patient is seizing. -Continue 1:1 sitter for safety until patient is safely transferred to the mental health unit -Cannot leave AMA at this time. Patient will need a petition and certification if attempting to leave AMA. -When medically stable, patient is eligible for transfer to a psych bed when available. should hopefully be ready for transfer to MHU tomorrow if patient continues to improve in terms of CK and LFTs. -Communicated plan to patient's nurse -Psychiatry will sign off at this time however will continue to follow along if needed/requested -Please contact with any questions.
--- NOTE | 2023-10-15 14:11 | P.PN ---
Subjective Progress Note Date: 10/15/23 I am seeing the patient for the first time during this admission. It seems the patient was extubated rehabilitation personally improved that. Patient stated that she overdosed on medications attempting suicidal. He stated that she's depressed and she does follow up with a psychiatrist as an outpatient and had a previous suicidal attempt at the age of 14 y/o. Again her mentation drastically better. She had a repeat EEG on 10/13/[address] Lopez is a reported as slowing suggestive of toxic metabolic encephalopathy. No clear epileptiform discharges patient had the frontal intermittent rhythmic delta activity may be seen with encephalopathy although may suggest underlying convulsive tendency. Dr. Lopez ordered a repeat EEG for today. She is on Keppra 1 g twice a day started by Dr. Araujo. Objective - Vital Signs Vital signs: Vital Signs Temp 98.4 F 10/15/23 12:44 Pulse 97 10/15/23 12:44 Resp 16 10/15/23 12:44 BP 144/83 10/15/23 12:44 Pulse Ox 96 10/15/23 12:44 FiO2 2 10/14/23 15:00 Intake & Output 10/14/23 10/15/23 10/15/23 18:59 06:59 18:59 Intake Total 1381.515 515.289 110 Output Total 1180 5425 325 Balance 201.515 -4909.711 -215 Weight 102.3 kg 102.3 kg Intake: IV 100 Potassium Chloride 10 meq 100 In Water For Injection 1 100ml.bag @ 100 mls/hr IVPB Q1HR [facility] Rx#: [id number] Intake, IV Titration 1381.515 515.289 10 Amount Dexmedetomidine/0.9% NaCl 181.515 145.289 (Pmx) 400 mcg In Empty Bag 1 bag @ 0.2 MCG/KG/HR 5.45 mls/hr IV .[id number] [facility] Rx#:[id number] Sodium Chloride 0.45% 1, 1200 370 10 000 ml @ 75 mls/hr IV . [id number] [facility] Rx#:[id number] Output: Urine 1180 5425 325 Other: Voiding Method Indwelling Catheter Indwelling Catheter Indwelling Catheter ABP, PAP, CO, CI - Last Documented Arterial Blood Pressure 127/88 - Exam Gen. is sitting in the recliner chair and is not in acute distress Neuro-the patient is awake alert oriented to self place and time. Is following simple commands. No aphasia and no neglect. Motor is the strength is 5 out of 5 throughout. Sensation is normal to touch throughout. - Labs CBC & Chem 7: 10/15/23 03:20 10/15/23 03:20 Labs: Abnormal Lab Results - Last 24 Hours (Table) 10/15/23 10/15/23 Range/Units 03:20 03:20 Hgb 11.0 L (11.4-16.0) gm/dL Hct 32.9 L (34.0-46.0) % Potassium 3.4 L (3.5-5.1) mmol/L BUN 19 H (7-17) mg/dL Creatinine 1.44 H (0.52-1.04) mg/dL Glucose 73 L (74-99) mg/dL AST 159 H (14-36) U/L ALT 118 H (4-34) U/L Creatine Kinase 6316 H* (30-135) U/L Total Protein 5.9 L (6.3-8.2) g/dL Albumin 3.2 L (3.5-5.0) g/dL Microbiology - Last 24 Hours (Table) 10/13/23 13:25 Urine Culture - Final Urine,Catheterized Assessment and Plan Assessment: * Suicide attempt with overdose on multiple medications. Based upon examination, it is quite positive that she overdosed on Lamictal (with profound nystagmus, dizziness), and Benadryl, with anticholinergic effect, ibuprofen with liver and renal dysfunction. She may have overdosed on Imitrex as well producing excessive serotonin. * Acute delirium/metabolic encephalopathy, likely due to above---drastic improvement * Acute rhabdomyolysis--trending down. * Acutely elevated hepatic enzymes, improving * Acute renal insufficiency, improving today * Bipolar disorder, borderline personality disorder, anxiety depression (per patient's father's report) * History of suicide attempt in the past Plan: * Patient mentation has drastically improved. According to the nurse she possibly was having myoclonus and alert state likely due to toxic metabolic derangement. Even Dr. Araujo's note stated that her convulsions resolved. * Initial EEG performed 10/12/2023 was reported as abnormal due to background slowing of moderate to severe degree, suggestive of generalized cerebral dysfunction as can be seen with toxic metabolic encephalopathy or related to medication effect. When the propofol was discontinued, the activity became more rhythmic, high amplitude delta slowing into words, during which the patient's pupils were constructing and dilating, and later also started having some slow body contractions. This may indicate convulsive tendency. May consider prolonged EEG for further evaluation. * Repeat EEG performed 10/13/2023 was reported as abnormal due to presence of background disorganization with frontal intermittent rhythmic delta activity seen during the study. This is suggestive of generalized cerebral dysfunction as can be seen with toxic metabolic encephalopathy or related to diffuse structural brain abnormality. Clinical correlation is recommended. No clear- cut epileptiform activity was seen. Frontal intermittent rhythmic delta activity may be seen with encephalopathy, although may suggest underlying convulsive tendency. Follow-up EEG recommended, if clinically indicated. * Repeat Lamictal level. Lamictal level 36.7(2-15), on 10/11/2023. * Patient currently on Keppra 1500 mg twice a day. Due to decreased renal functions, we will check Keppra level. And also decrease the dosing of Keppra down to 1000 mg twice a day, starting from today a.m. per Dr. Lopez * Dr. Lopez ordered a repeat EEG and will pursue with routine. * CT head showed no acute process. * I ordered ammonia level. * Patient has developed rhabdomyolysis, Symptomatic treatment. Hydration, nephrology on board. * Hepatic functions have slightly worsened today, although renal functions have improved today. * Telemetry monitoring * Seizure/fall precautions * Psychiatry is reconsulted. * We'll defer the rest of medical management to primary team Plan discussed with the patient and her ICU nurse Time with Patient: Less than 30
--- NOTE | 2023-10-15 22:55 | P.PN ---
Subjective Progress Note Date: 10/15/23 23-year-old female came in the with the concerns of overdose patient was attempting suicide as per the family members. Patient to these medications approximately 9:52 PM on October 08 which was couple days ago patient was okay when she came in started getting worse started getting agitated drowsy and was subsequently admitted to the medicine service because of that reason. Patient the was found to have 2 bottles of Lamictal 100 mg, buspirone, diphenhydramine, sumatriptan, 6 lithium the patient is presently agitated, having muscle spasms horizontal nystagmus all of which are consistent with anticholinergic side effects can be secondary to sumatriptan overdose. Patient is receiving Valium at this time will add Ativan at an as-needed basis as well. Patient is getting IV fluids at 1 50 mL per hour patient had nausea vomiting unable to tolerate any oral medications and activated charcoal. Patient is completely confused at this time. EKG did not show any QT prolongation. 10/12/2023 Patient was seen in follow up today admitted to the intensive care unit. Currently intubated and sedated with FiO2 of 40%, patient was intubated for airway protection. Was having seizure like activity suspected. EEG shows background slowing of moderate to severe degree suggestive generalized cerebral dysfunction as seen with toxic metabolic encephalopathy or related to medication effect. When the propofol was discontinued the activity became more rhythmic high amplitude delta slowing and 2 Hz during which the patient's pupils are strict and dilating and also started having some slow body contractions. This may indicate convulsive tendency. Consider for prolonged EEG for further evaluation. Remains on IV valium, IVP keppra, IV versed running at 4.5 mls/hr, she is sedated with propofol. Her labs today are showing sodium 148, potassium 3.8, BUN 14, creatinine 1.51. AST/ALT elevated, creatine kinase [id number]. 10/13/2023 Patient evaluated intensive care unit currently intubated however she is off the propofol and she is responsive. Plan is for extubation today. Chest x-ray today shows no acute cardiopulmonary disease. Patient Had a repeat EEG last night which showed improvement per neurology although the official reports are not resulted. Lamictal level did come back at 36.7. LFTs and creatinine kinase are improving. Creatinine of 2.02 today. Patient is being followed closely by nephrology and remains in normal saline at 150 ML per hour. Additionally she is on IV Keppra, IV Versed, Valium. Patient is also on IV precedex. Patient is on enteral feeding. 10/14/2023 Patient remains in the intensive care unit. She was extubated without incident and continues on nasal cannula at 2 L. She is awake and alert and appropriately responding to questions. She is aware of her name and birthday and knows that her family is at the bedside. She is scheduled to get a repeat EEG. Renal function is improving her CK and LFTs remaining elevated. Remains on IV Keppra, Precedex drip and IV Valium. 10/15/2023 Patient will be moved to the medical floor today. She is seen in follow up si tting up at the bedside in the ICU alert x 2 to 3. Anxious to see her mom today. She is in a pleasant mood. mobile sales expert has been placed at beside and pending psychiatric re-evaluation. Remains on Valium PRN. on IV hydralazine for elevated BPs improving today at 153/88. Potassium is 3.4 today, BUN 19, creatinine 1.44, LFTs improving. CK down to 6316. Ammonia level 12. Review of Systems Constitutional: reports fatigue denied any fever. Cardio vascular: denied any chest pain, palpitations Gastrointestinal: denied any nausea, vomiting, diarrhea Pulmonary: Denied any shortness of breath cough Neurologic denied any new focal deficits All inpatient medications were reviewed and appropriate changes in these medications as dictated in the interval history and assessment and plan. PHYSICAL EXAMINATION: GENERAL: The patient is alert and oriented x2-3, not in any acute distress. Well developed, well nourished. HEENT: Pupils are round and equally reacting to light. EOMI. No scleral icterus. No conjunctival pallor. Normocephalic, atraumatic. No pharyngeal erythema. No thyromegaly. CARDIOVASCULAR: S1 and S2 present. No murmurs, rubs, or gallops. PULMONARY: Chest is clear to auscultation, no wheezing or crackles. ABDOMEN: Soft, nontender, nondistended, normoactive bowel sounds. No palpable organomegaly. MUSCULOSKELETAL: No joint swelling or deformity. EXTREMITIES: No cyanosis, clubbing, or pedal edema. NEUROLOGICAL: Gross neurological examination did not reveal any focal deficits. Diffuse weakness SKIN: No rashes. Assessment and plan -Drug overdose mostly due to Benadryl and sumatriptan lithium and lamictal; patients levels were normal. Lamictal level came back elevated at 36.7. Patient had anticholinergic side effects having myoclonus and concern for seizure like activity patient was intubated and has since been extubated. Repeat lamictal and keppra levels are pending. Off precedex. -Acute hypoxic respiratory failure from the overdose requiring Mechanical ventilator monitoring clinically patient has improved patient was extubated on 10/13/23 and currently on 2L of oxygen. -Suicidal ideation and suicide attempt: Psychiatry evaluated the patient does meet need for IP placement when medically stable. -Horizontal nystagmus secondary to anticholinergic side effects, supportive care continue with the Valium. This is improving. -Acute rhabdomyolysis secondary to JOCELYN/Myoclonus with elevated creatine kinase recommend to monitor LFTS/INR levels. Levels are currently improving and will recommend to repeat labs in the AM. -Acute kidney injury secondary to acute tubular necrosis and the rhabdomyolysis now with improving CK levels. -Bipolar disorder and depression -Nicotine use DVT prophylaxis: Lovenox Gi prophylaxis: Pepcid Full Code Patients family at the bedside updated on plan of care more than 35 minutes spent in coordination of care. Patient will be moved to the medical floor today. Nephrology, pulmonary/supplemental nurse, pschiatry and nephrology following closely. IV hydralazine added per nephrology for elevated pressures. Patient remains NPO. Pulmonary, nephrology, neurology following closely. Recommend to repeat labs in the morning. Physical therapy and occupational therapy have been consulted for evaluation. Patient pending re-evaluation by psychiatry now that is more awake and alert. mobile sales expert at the bedside to maintain a 1:[address] in [address]. The impression and plan of care has been dictated by Shu Mccoy Nurse Practitioner as directed. Dr. Pam MD I have performed a history and physical examination and medical decision making of this patient, discussed the same with the dictator, and agree with the dictators assessment and plan as written, documented as a scribe. Based on total visit time, I have performed more than 50% of this visit. Objective - Vital Signs Vital signs: Vital Signs Temp 97.7 F 10/15/23 19:05 Pulse 105 H 10/15/23 19:05 Resp 16 10/15/23 20:00 BP 153/88 10/15/23 19:05 Pulse Ox 94 L 10/15/23 19:05 FiO2 2 10/14/23 15:00 Intake & Output 10/15/23 10/15/23 10/16/23 06:59 18:59 06:59 Intake Total 515.289 110 Output Total 5425 325 75 Balance -4909.711 -215 -75 Weight 102.3 kg 102.3 kg Intake: IV 100 Potassium Chloride 10 meq 100 In Water For Injection 1 100ml.bag @ 100 mls/hr IVPB Q1HR [facility] Rx#: [id number] Intake, IV Titration 515.289 10 Amount Dexmedetomidine/0.9% NaCl 145.289 (Pmx) 400 mcg In Empty Bag 1 bag @ 0.2 MCG/KG/HR 5.45 mls/hr IV .[id number] [facility] Rx#:[id number] Sodium Chloride 0.45% 1, 370 10 000 ml @ 75 mls/hr IV . [id number] [facility] Rx#:[id number] Output: Urine 5425 325 75 Other: Voiding Method Indwelling Catheter Indwelling Catheter Indwelling Catheter # Voids 2 2 # Bowel Movements 0 ABP, PAP, CO, CI - Last Documented Arterial Blood Pressure 127/88 - Labs CBC & Chem 7: 10/15/23 03:20 10/15/23 03:20 Labs: Abnormal Lab Results - Last 24 Hours (Table) 10/15/23 10/15/23 Range/Units 03:20 03:20 Hgb 11.0 L (11.4-16.0) gm/dL Hct 32.9 L (34.0-46.0) % Potassium 3.4 L (3.5-5.1) mmol/L BUN 19 H (7-17) mg/dL Creatinine 1.44 H (0.52-1.04) mg/dL Glucose 73 L (74-99) mg/dL AST 159 H (14-36) U/L ALT 118 H (4-34) U/L Creatine Kinase 6316 H* (30-135) U/L Total Protein 5.9 L (6.3-8.2) g/dL Albumin 3.2 L (3.5-5.0) g/dL Microbiology - Last 24 Hours (Table) 10/13/23 13:25 Urine Culture - Final Urine,Catheterized Assessment and Plan Time with Patient: Less than 30
--- NOTE | 2023-10-16 02:56 | EEG ---
ELECTROENCEPHALOGRAM REPORT CLINICAL HISTORY: This is a 23-year-old woman with altered mental status. The video EEG is obtained to evaluate for seizure epileptiform activity. RELEVANT MEDICATIONS: 1. Keppra. 2. Ativan p.r.n. EEG TYPE: This is a routine 21-channel EEG with video using the 10/20 electrode placement system. DESCRIPTION: Wakefulness is only obtained. During awake state, the posterior-dominant rhythm consists of [id number] voltage of 8.5 to 9 hertz activity that is well modulated and well sustained. There is no physiological stage 2 sleep architecture. There is no focal slowing. Interictal and ictal is none. ACTIVATION PROCEDURE: Photic stimulation did not evoke a posterior driving response. There is no abnormality during the photic stimulation. Hyperventilation is not performed. CLINICAL INTERPRETATION: This is a normal routine EEG. There is no focal slowing, epileptiform discharge, or seizure on the EEG. A normal routine EEG does not rule out underlying epilepsy. Clinical correlation is recommended. CAREY / EMILYN: [id number] / TAL
[2023-10-16] MEDS: LORazepam 2 MG/ML INJ IV PRN (04:22)
[2023-10-16] MEDS: ONDANSETRON 4 MG/2 ML VIAL IVP PRN (06:02)
[2023-10-16 08:33] LABS: Basophils # (A) 0.01 X 10*3/uL (0.00-0.10); Basophils % (A) 0.1 %; Eosinophils # (A) 0.24 X 10*3/uL (0.04-0.35); Eosinophils % (A) 3.3 %; HCT 34.6 % (37.2-46.3); HGB 11.7 g/dL (12.0-15.0); Lymphocytes # (A) 1.33 X 10*3/uL (0.90-5.00); Lymphocytes % (A) 18.2 %; MCH 26.9 pg (27.0-32.0); MCHC 33.8 g/dL (32.0-37.0); MCV 79.5 FL (80.0-97.0); Mean Platelet Volume 10.6 FL (9.5-12.2); Monocytes # (A) 0.55 X 10*3/uL (0.20-1.00); Monocytes % (A) 7.5 %; NRBC Per 100 WBC 0 X 10*3/uL (0.00-0.01); Neutrophils # (A) 5.12 X 10*3/uL (1.80-7.70); Neutrophils % (A) 70.2 %; Platelet Count 246 X 10*3/uL (140-440); RBC 4.35 X 10*6/uL (4.10-5.20); RDW 13.8 % (11.5-14.5)
[2023-10-16] MEDS: NICOTINE 14MG/24HR PATCH TRANSDERM SCH (08:37)
[2023-10-16] MEDS: levETIRAcetam IV 500 MG/5 ML VIAL IVP SCH (08:38)
[2023-10-16] MEDS: FAMOTIDINE 20 MG/2 ML VIAL IV SCH (08:38)
[2023-10-16] MEDS: ENOXAPARIN 40 MG/0.4 ML SYRINGE SQ SCH (08:38)
[2023-10-16 09:02] LABS: Magnesium 1.7 mg/dL (1.5-2.4)
[2023-10-16 09:06] LABS: ALT 100 U/L (8-44); AST 92 U/L (13-35); Albumin 3.3 g/dL (3.8-4.9); Alkaline Phosphatase 83 U/L (41-126); Blood Urea Nitrogen 13.2 mg/dL (9.0-27.0); Carbon Dioxide 26.4 mmol/L (21.6-31.8); Chloride 104 mmol/L (96-109); Globulin 2.2 g/dL (1.6-3.3); Glucose 99 mg/dL (70-110); Potassium 3.2 mmol/L (3.5-5.5); Sodium 142 mmol/L (135-145); Total Bilirubin 0.3 mg/dL (0.3-1.2); Total Protein 5.5 g/dL (6.2-8.2)
[2023-10-16] MEDS: POTASSIUM CHLORIDE ER 20 MEQ TAB.ER PO SCH ×2 (10:16→12:24)
--- NOTE | 2023-10-16 12:10 | P.PN ---
Subjective Patient is seen for follow-up for acute kidney injury, ATN currently nonoliguric. She was admitted with a suicide attempt with overdose on Benadryl and Lamictal. Patient has been extubated and transferred out of the ICU. Renal function has improved significantly. Serum creatinine Is down to 1.1 mg/dL. Potassium 3.2 today. Good urine output. Eating pizza and enjoying it. Objective - Vital Signs Vital signs: Vital Signs Temp 97.4 F L 10/16/23 08:30 Pulse 89 10/16/23 08:30 Resp 17 10/16/23 08:30 BP 163/95 10/16/23 10:59 Pulse Ox 93 L 10/16/23 08:30 FiO2 2 10/14/23 15:00 Intake & Output 10/15/23 10/16/23 10/16/23 18:59 06:59 18:59 Intake Total 110 Output Total 325 75 Balance -215 -75 Weight 102.3 kg 103.5 kg Intake: IV 100 Potassium Chloride 10 meq 100 In Water For Injection 1 100ml.bag @ 100 mls/hr IVPB Q1HR [facility] Rx#: [id number] Intake, IV Titration 10 Amount Sodium Chloride 0.45% 1, 10 000 ml @ 75 mls/hr IV . [id number] [facility] Rx#:[id number] Output: Urine 325 75 Other: Voiding Method Indwelling Catheter Indwelling Catheter Toilet # Voids 2 2 # Bowel Movements 3 ABP, PAP, CO, CI - Last Documented Arterial Blood Pressure 127/88 - Exam Patient is awake, alert oriented 3 She is comfortable. No acute distress Abdomen is soft nontender Examination of lower extremities shows 1+ edema upper and lower extremities. Examination of the heart S1 and S2 Examination of the lungs bilateral breath sounds are heard ANESTHESIOLOGISTS' ASSISTANT exam grossly intact - Labs CBC & Chem 7: 10/16/23 05:57 10/16/23 05:57 Labs: Abnormal Lab Results - Last 24 Hours (Table) 10/16/23 10/16/23 Range/Units 05:57 05:57 Hgb 11.7 L (12.0-15.0) g/dL Hct 34.6 L (37.2-46.3) % MCV 79.5 L (80.0-97.0) FL MCH 26.9 L (27.0-32.0) pg Immature Gran # 0.05 H (0.00-0.04) X 10*3/uL Potassium 3.2 L (3.5-5.5) mmol/L AST 92 H (13-35) U/L ALT 100 H (8-44) U/L Total Protein 5.5 L (6.2-8.2) g/dL Albumin 3.3 L (3.8-4.9) g/dL Albumin/Globulin Ratio 1.50 L (1.60-3.17) Ratio Assessment and Plan Assessment: 1. Acute kidney injury secondary to ATN. Patient has rhabdomyolysis. [place] [address] and has decreased [place] 6316. [place] level not high. Renal function is improving.. Status post IV fluids. Baseline creatinine 0.8-0.9. 2. Suicide attempt. She took multiple medications including Benadryl and Lamictal. 3. Seizures. 4. Metabolic acidosis secondary to acute kidney injury, IV fluids. Can also be from lactic acidosis from seizures. 5. Bipolar disorder. 6. Hypernatremia from lack oral water intake. Patient not polyuric. Status post D5W . Improved. Plan: Replace potassium Repeat labs in a.m. Continue to encourage increased oral intake.
--- NOTE | 2023-10-16 12:44 | P.PN ---
Subjective Progress Note Date: 10/16/23 This is a 23-year-old female with known history of bipolar disorder, depression, previous history of suicidal attempts, patient was brought into the ER on 10/09/23 at 6:3 0 p.m. and apparently the patient ingested an unknown amount of lamotrigine 100 mg, buspirone, Benadryl, Sumatriptan, and lithium and apoquel. While in the ER, the patient was noted to be initially stable, and she was seen by many consultants while in the ER including psychiatry. Patient went on to develop worsening symptoms of psychosis, involuntary muscle movements, possible seizures, and the first time I knew about this patient was early evening yesterday when the admitting physician Dr. Orozco called me , and the patient was requiring significant amount of benzodiazepines to keep her calm. Shortly after I talked over the phone, patient was intubated and she was having intermittent seizures. Patient was sent to the ICU, she was placed on Versed drip at 15 mg per hour and propofol at 50 mcg/kg/m. Neurology who have ready seen the patient, loaded her with Keppra, and the patient was kept intubated and mechanically ventilated overnight. No further seizures were noted. Patient is now on assist control rate of 18 tidal volume 450 FiO2 40% and PEEP of 5 ABG showed a pO2 of 99 pCO2 40 pH of 7.29. When the patient was intubated yesterday, I have recommended adjustment of the endotracheal tube because it was initially in the right mainstem bronchus, and this was done shortly after. Apparently was in control was aware of this patient, and the recommendation was mostly treatment with benzodiazepines. And no other specific treatment was recommended. This morning the patient remains on propofol at 50 mg/kg/m and on Versed 15 mg/h she is on IV fluid at 75 mL per hour in the form of D5W. Her CT of the brain and EEG are negative so far. Her urine output is about 40 mL per hour. Patient received 1 amp of bicarbonate earlier for acidosis/metabolic acidosis and my plan is to taper down Versed hopefully discontinue Versed today, and keep the patient on propofol. In the meantime I went ahead and established right radial arterial line in this patient she has enough IV access for the time being, does not require a central line placement. Chest x-ray showed adequate placement of the endotracheal tube and some left sided infiltrates atelectasis most likely secondary to the fact that the endotracheal tube was in the right mainstem bronchus when the patient was in the ER. Her basic metabolic profile is normal except sodium is 148 potassium 3.8 bicarbonate 17 BUN is 14 and creatinine is up to 1.51, and that being addressed by nephrology on the case. WBC count is 11.5 hemoglobin is 12.0. Platelets are normal however the patient seems to have developed significantly elevated CPK with 74,970, and I believe that is probably a picture of rhabdomyolysis from her seizures yesterday, and s he developing acute kidney injury from rhabdomyolysis Patient was seen and examined today on 10/13/2023, remains in the ICU, intubated and mechanically ventilated. Patient is on assist control rate of 18 tidal volume 450 FiO2 40% and PEEP of 5 ABG showed a pO2 of 127 pCO2 39 pH of 7.36. Patient remains on propofol at 50 mcg/kg/m Versed at 5 mg per hour, she is on vital HPF 50 mL/h IV fluid 0.9 normal saline at 1 50 mL per hour. Patient is sedated, however when the patient went off propofol and Versed I was able to wake of the patient, follows simple instructions but seems to be quite lethargic and sleepy hence I stressed transition the patient to a pressure support mode of mechanical ventilation with pressure support of 12 and CPAP. She is not quite ready to be extubated mostly because of her mental status and she seems to be quite sedated. I did recommend however stopping propofol and Versed. Her urine output is about 30-40 mL/h, creatinine is a bit worse today compared to yes terday, CPK is coming down to the 20,400 range. It was 74,000 yesterday. CBC showed WBC count of 10.4 hemoglobin 10.5. Patient was evaluated again today on 10/14/2023, remains in the ICU, remains on Precedex, at 1 g, per kilo per hour IV fluid D5 45 and 150 ML per hour. Patient was extubated yesterday, and she required significant amount of sedation after extubation because she was extremely agitated, I had multiple calls regarding this patient after extubation, received Ativan, along with Precedex, and the agitation was extremely difficult to control. Been recommended Haldol, and one dose was given that seemed to be most beneficial to control her sedation and agitation. Patient is doing well today, she is definitely not agitated, she is sedated, and does not seem to be in any distress, she is on 2 L nasal cannula. As far as her agitation is concerned, we will continue Precedex, we will restart the patient back on Seroquel, will use Haldol if necessary for extreme agitation. In the meantime I'm planning to keep the patient in the ICU and monitor at least for the next 24 hours. No seizure activities in the last 24 hours. Labs showed WBC count of 7.5 hemoglobin is 10, sodium 145 potassium 4.4 ER and is 19 and creatinine is down to 1.60, from 2.0 yesterday. And 1.93 the day before. CPK is down to 20,000. AST 231 and ALT is 111 improving steadily. The patient is seen today 10/15/2023 in follow-up in the intensive care unit. She is more awake and alert today. Maintaining good O2 saturations in the 90s on 3 L/m per nasal cannula. She has been off the Precedex infusion since 5 AM. No seizure activity. White count 7.9. Hemoglobin 11.0. Platelets 286. Sodium 144. Potassium 3.4. Bicarb 24. BUN 19. Creatinine 1.44. Glucose 73. AST 159. ALT 118. Creatinine kinase 6316. She remains on Lovenox for DVT prophylaxis. NicoDerm patch in place. Continue on Keppra. assistant cross country coach is at the bedside. The patient is seen today 10/16/2023 in follow-up on the regular medical floor. She was transferred out of the intensive care unit yesterday. She is currently sitting up in bed. Awake and alert. Oriented 3. Maintaining good O2 saturations in the 90s on room air. She's afebrile. Hemodynamically stable. Urine culture revealed no growth. White count 7.3. Hemoglobin 11.7. Platelets 246. Sodium 142. Potassium 3.2. Bicarb 26. BUN 13. Creatinine 1.1. AST 92. ALT 100. NicoDerm patch in place. Lovenox for DVT prophylaxis. She remains o n Keppra. No seizure activity in the last 24 hours. Objective - Vital Signs Vital signs: Vital Signs Temp 97.4 F L 10/16/23 08:30 Pulse 89 12/19/23 08:30 Resp 17 10/16/23 08:30 BP 163/95 10/16/23 10:59 Pulse Ox 93 L 10/16/23 08:30 FiO2 2 10/14/23 15:00 Intake & Output 10/15/23 10/16/23 10/16/23 18:59 06:59 18:59 Intake Total 110 Output Total 325 75 Balance -215 -75 Weight 102.3 kg 103.5 kg Intake: IV 100 Potassium Chloride 10 meq 100 In Water For Injection 1 100ml.bag @ 100 mls/hr IVPB Q1HR [facility] Rx#: [id number] Intake, IV Titration 10 Amount Sodium Chloride 0.45% 1, 10 000 ml @ 75 mls/hr IV . [id number] [facility] Rx#:[id number] Output: Urine 325 75 Other: Voiding Method Indwelling Catheter Indwelling Catheter Toilet # Voids 2 2 # Bowel Movements 3 ABP, PAP, CO, CI - Last Documented Arterial Blood Pressure 127/88 - Exam GENERAL EXAM: Alert, pleasant, obese 23-year-old female, on room air, comfortable in no apparent distress. HEAD: Normocephalic. EYES: Normal reaction of pupils, equal size. NOSE: Clear with pink turbinates. THROAT: No erythema or exudates. NECK: No masses, no JVD. CHEST: No chest wall deformity. LUNGS: Equal air entry with no crackles, wheeze, rhonchi or dullness. CVS: S1 and S2 normal with no audible murmur, regular rhythm. ABDOMEN: No hepatosplenomegaly, normal bowel sounds, no guarding or rigidity. SPINE: No scoliosis or deformity SKIN: No rashes CENTRAL NERVOUS SYSTEM: No focal deficits, tone is normal in all 4 extremities. EXTREMITIES: There is no peripheral edema. No clubbing, no cyanosis. Peripheral pulses are intact. - Labs CBC & Chem 7: 10/16/23 05:57 10/16/23 05:57 Labs: Abnormal Lab Results - Last 24 Hours (Table) 10/16/23 10/16/23 Range/Units 05:57 05:57 Hgb 11.7 L (12.0-15.0) g/dL Hct 34.6 L (37.2-46.3) % MCV 79.5 L (80.0-97.0) FL MCH 26.9 L (27.0-32.0) pg Immature Gran # 0.05 H (0.00-0.04) X 10*3/uL Potassium 3.2 L (3.5-5.5) mmol/L AST 92 H (13-35) U/L ALT 100 H (8-44) U/L Total Protein 5.5 L (6.2-8.2) g/dL Albumin 3.3 L (3.8-4.9) g/dL Albumin/Globulin Ratio 1.50 L (1.60-3.17) Ratio Assessment and Plan Assessment: Acute hypoxic respiratory failure secondary to drug overdose, multiple drugs, mostly with excessive anticholinergic symptoms, requiring intubation and mechanical ventilation, patient was extubated on 10/13/2023. Recovered and on room air Suicidal ideation and suicide attempt History of bipolar disorder and depression Acute rhabdomyolysis, improving Acute seizure disorder secondary to multiple drugs overdose and remains on Keppra Acute kidney injury secondary to ATN and rhabdomyolysis, recovered Acute transaminitis secondary to above, improving Acute metabolic acidosis secondary to kidney injury and secondary to seizures, resolved Hypovolemic hypernatremia, resolved Plan: The patient was seen and evaluated Labs and medications reviewed Currently stable and on room air Encouraged increased use of the incentive spirometer Increase her activity as tolerated assistant cross country coach in attendance Plan is for inpatient psychiatric unit I have personally seen and examined the patient, performed the documentation and the assessment and plan as written. Number of minutes spent on the visit: 10.
[2023-10-16] MEDS ORDERED: MAGNESIUM SULFATE-D5W PMX 1 GM in DEXTROSE/WATER 1 100ML.BAG IVPB ONE (13:06)
--- NOTE | 2023-10-16 13:34 | P.PN ---
Subjective Progress Note Date: 10/16/23 I am follow-up with the patient's and she is accompanied with her mother. Overall the mother feels her mentation is improving compared to initial presentation. Patient feels she seeing [employer]. Otherwise feels she is doing better overall. Objective - Vital Signs Vital signs: Vital Signs Temp 97.4 F L 10/16/23 08:30 Pulse 89 10/16/23 08:30 Resp 17 10/16/23 08:30 BP 163/95 10/16/23 10:59 Pulse Ox 93 L 10/16/23 08:30 FiO2 2 10/14/23 15:00 Intake & Output 10/15/23 10/16/23 10/16/23 18:59 06:59 18:59 Intake Total 110 Output Total 325 75 Balance -215 -75 Weight 102.3 kg 103.5 kg Intake: IV 100 Potassium Chloride 10 meq 100 In Water For Injection 1 100ml.bag @ 100 mls/hr IVPB Q1HR [facility] Rx#: [id number] Intake, IV Titration 10 Amount Sodium Chloride 0.45% 1, 10 000 ml @ 75 mls/hr IV . [id number] [facility] Rx#:[id number] Output: Urine 325 75 Other: Voiding Method Indwelling Catheter Indwelling Catheter Toilet # Voids 2 2 # Bowel Movements 3 ABP, PAP, CO, CI - Last Documented Arterial Blood Pressure 127/88 - Exam Gen. Is not in acute distress Neuro-the patient is awake alert oriented to self place and time. Is following simple commands. No aphasia and no neglect. Motor: Gait is normal. The strength is 5 out of 5 throughout. Sensation is normal to touch throughout. - Labs CBC & Chem 7: 10/16/23 05:57 10/16/23 05:57 Labs: Abnormal Lab Results - Last 24 Hours (Table) 10/16/23 10/16/23 Range/Units 05:57 05:57 Hgb 11.7 L (12.0-15.0) g/dL Hct 34.6 L (37.2-46.3) % MCV 79.5 L (80.0-97.0) FL MCH 26.9 L (27.0-32.0) pg Immature Gran # 0.05 H (0.00-0.04) X 10*3/uL Potassium 3.2 L (3.5-5.5) mmol/L AST 92 H (13-35) U/L ALT 100 H (8-44) U/L Total Protein 5.5 L (6.2-8.2) g/dL Albumin 3.3 L (3.8-4.9) g/dL Albumin/Globulin Ratio 1.50 L (1.60-3.17) Ratio Assessment and Plan Assessment: * Suicide attempt with overdose on multiple medications. Based upon exami nation, it is quite positive that she overdosed on Lamictal (with profound nystagmus, dizziness), and Benadryl, with anticholinergic effect, ibuprofen with liver and renal dysfunction. She may have overdosed on Imitrex as well producing excessive serotonin. * Acute delirium/metabolic encephalopathy, likely due to above---drastic improvement. Last EEG on 10/15/23 is normal * Acute rhabdomyolysis--trending down. * Acutely elevated hepatic enzymes, improving * Acute renal insufficiency, improving today * Bipolar disorder, borderline personality disorder, anxiety depression (per patient's father's report) * History of suicide attempt in the past Plan: * Patient mentation has drastically improved. According to the nurse she possibly was having myoclonus and alert state likely due to toxic metabolic derangement. Even Dr. Araujo's note stated that her convulsions resolved. * Initial EEG performed 10/12/2023 was reported as abnormal due to background slowing of moderate to severe degree, suggestive of generalized cerebral dysfunction as can be seen with toxic metabolic encephalopathy or related to medication effect. When the propofol was discontinued, the activity became more rhythmic, high amplitude delta slowing into words, during which the patient's pupils were constructing and dilating, and later also started having some slow body contractions. This may indicate convulsive tendency. May consider prolonged EEG for further evaluation. * Repeat EEG performed 10/13/2023 was reported as abnormal due to presence of background disorganization with frontal intermittent rhythmic delta activity seen during the study. This is suggestive of generalized cerebral dysfunction as can be seen with toxic metabolic encephalopathy or related to diffuse structural brain abnormality. Clinical correlation is recommended. No clear- cut epileptiform activity was seen. Frontal intermittent rhythmic delta activity may be seen with encephalopathy, although may suggest underlying convulsive tendency. Follow-up EEG recommended, if clinically indicated. * Most recent EEG on 10/15/23: Normal. * Repeat Lamictal level. Lamictal level 36.7(2-15), on 10/11/2023. * Seems the Keppra was started by Dr. Araujo during this admission for concern for seizures. Her most recent EEG was negative for seizures. I'll decrease the Keppra from thousand to 500 mg twice a day and I'll make sure it by mouth. Recommend patient to follow-up with a neurologist as an outpatient for further tapering down of the Keppra once that they feel safe as an outpatient and eventually stop and it is not needed. Recommend patient to follow-up with a neurologist as an outpatient within 2-3 weeks if possible. * I'll pursue MRI the brain since the patient is having visual hallucination. But I feel it is more due to toxic-metabolic derangement and psychiatric condition. * CT head showed no acute process. * Ammonia level: 12 * Patient has developed rhabdomyolysis, Symptomatic treatment. Hydration, nephrology on board. * Hepatic functions have slightly worsened today, although renal functions have improved today. * Telemetry monitoring * Seizure/fall precautions * Psychiatry is reconsulted. * We'll defer the rest of medical management to primary team If MRI Brain is negative and patient has no further worsening of neurological condition from decrease of Keppra then is clear from neurological perspective. Plan discussed with the patient, her mother who is at bedside and her nurse. Time with Patient: Less than 30
[2023-10-16] MEDS ORDERED: HYDROcodone/APAP 5-325MG 1 EACH TAB PO PRN (14:43)
--- NOTE | 2023-10-16 15:27 | P.CNOR ---
History of Present Illness - [facility] Consult date: 10/16/23 Requesting physician: Nissa Orozco Consult reason: other (Finger abscess) History of present illness: Patient is a 23-year-old female who came to the hospital on 10/09/2023 after she attempted suicide as per her family members. Patient has been hospital over the past week with multiple medical specialists following. Orthopedics has been consulted for right ring finger abscess/infection. Patient was seen at bedside this morning sitting up in bed. Patient says over the past couple days she has noted increased swelling and redness and warmth to the very tip of the right ring finger. Patient says she has had some seizures since she came to the hospital and is unsure when or if she hit her finger on anything. Patient denies any issues with any other digits in her upper extremities. Patient denies any right wrist pain. Patient states most the pain is localized to the very tip of the right ring finger. Patient denies radiation of pain. Patient does note there is some swelling that extends towards the base of the right index finger. Patient denies any other orthopedic issues at this time. Patient denies loss of bowel/bladder control. Patient denies chest pain, fever, shortness of breath, nausea, vomiting, change in vision. Past Medical History Past Medical History: GERD/Reflux, Skin Disorder Additional Past Medical History / Comment(s): Irritable bowel syndrome, previous Tylenol overdose with acute liver damage, over dose x2. [place], pnumonia, strep, toncillectomy, migranes, bulimia History of Any Multi-Drug Resistant Organisms: None Reported Past Surgical History: Adenoidectomy, Tonsillectomy Additional Past Surgical History / Comment(s): wisdom teeth removal Past Anesthesia/Blood Transfusion Reactions: No Reported Reaction Past Psychological History: Anxiety, Bipolar, Depression, PTSD Additional Psychological History / Comment(s): Borderline personality disorder Smoking Status: Current every day smoker Past Alcohol Use History: Occasional Additional Past Alcohol Use History / Comment(s): Patient smokes an occasional cigar. She occasionally drinks wine. She uses marijuana on occasion. She denies any other street drug use. She denies any previous pregnancies and does not have any children. Past Drug Use History: Marijuana - Past Family History Father Family Medical History: Diabetes Mellitus, Hypertension Additional Family Medical History / Comment(s): Father is alive with history of diabetes Mother Family Medical History: Hypertension, Thyroid Disorder Additional Family Medical History / Comment(s): Mother is alive with a history of diabetes, hypothyroidism, myocardial infarction, stroke Sister(s) Additional Family Medical History / Comment(s): Patient has 3 sisters with no major medical problems. Patient does not have any brothers. Medications and Allergies Home Medications Medication Instructions Recorded Confirmed Type Ibuprofen [Motrin] 800 mg PO Q8H PRN 10/09/23 10/09/23 History Twisp Carbonate [Twisp 300 mg PO BID 10/09/23 10/09/23 History Carbonate ER] Omeprazole [PriLOSEC] 20 mg PO DAILY 10/09/23 10/09/23 History SUMAtriptan succinate 100 mg PO BID PRN 10/09/23 10/09/23 History busPIRone HCl [Buspar] 5 mg PO BID 10/09/23 10/09/23 History diphenhydrAMINE [Benadryl] 25 mg PO QID PRN 10/09/23 10/09/23 History lamoTRIgine [lamoTRIgine ER] 300 mg PO DAILY 10/09/23 10/09/23 History Allergies Allergy/AdvReac Type Severity Reaction Status Date / Time amoxicillin Allergy Anaphylaxis Verified 10/09/23 20:19 Penicillins Allergy Anaphylaxis Verified 10/09/23 20:19 acetaminophen [From Tylenol] AdvReac Nausea & Verified 10/09/23 20:19 Vomiting Physical Examination Inspection: Right ring finger presents with swelling and erythema mostly present just distal to the DIPJ and along the nailbed of the right ring finger. There does appear to be some purulent fluid at the base of the nailbed. Swelling is present both at the dorsum and ulnar aspect of the finger. Sensation: Equal, symmetric, bilaterally intact throughout the upper extremities on exam Palpation: Significant tenderness to palpation along the distal aspect of the right ring finger at the base of the nailbed. Nontender to palpation throughout the palm and dorsal aspect of the right hand. Nontender to palpation throughout the web spaces in the right hand. Range of motion: Patient does have limited range of motion in the DIPJ and PIPJ in the right ring finger secondary to referred pain and swelling in the right ring finger. Full range of motion throughout other digits in upper extremities. Full range of motion throughout right wrist in flexion/extension. Motor: 5/5 in all major motor groups. Neurovascular: Radial pulses intact, 2+ bilaterally. Cap refill under 3 seconds in digits upper extremities. Special tests: Negative Homans bilaterally. Results - Labs Labs: Abnormal Lab Results - Last 24 Hours (Table) 10/16/23 10/16/23 Range/Units 05:57 05:57 Hgb 11.7 L (12.0-15.0) g/dL Hct 34.6 L (37.2-46.3) % MCV 79.5 L (80.0-97.0) FL MCH 26.9 L (27.0-32.0) pg Immature Gran # 0.05 H (0.00-0.04) X 10*3/uL Potassium 3.2 L (3.5-5.5) mmol/L AST 92 H (13-35) U/L ALT 100 H (8-44) U/L Total Protein 5.5 L (6.2-8.2) g/dL Albumin 3.3 L (3.8-4.9) g/dL Albumin/Globulin Ratio 1.50 L (1.60-3.17) Ratio H & H 10/09/23 10/10/23 10/11/23 Range/Units 19:39 18:00 10:23 Hgb 13.0 12.8 11.7 L (11.4-16.0) gm/dL Hct 37.9 38.1 35.6 L (34.0-46.0) % 10/12/23 10/13/23 10/14/23 Range/Units 04:04 04:30 03:19 Hgb 12.0 10.5 L 10.0 L (11.4-16.0) gm/dL Hct 37.9 32.2 L 29.9 L (34.0-46.0) % 10/15/23 10/16/23 Range/Units 03:20 05:57 Hgb 11.0 L 11.7 L (11.4-16.0) gm/dL Hct 32.9 L 34.6 L (34.0-46.0) % Coagulation 10/10/23 10/13/23 Range/Units 18:00 04:30 INR 1.0 0.9 (<1.2) Result Diagrams: 10/16/23 05:57 10/16/23 05:57 Assessment and Plan Assessment: 1. Right fourth digit paronychia vs felon Plan: 1. Right fourth digit paronychia vs felon - I did discuss the findings of the exam with my attending, Dr. Hollins. At this time we are recommending Hibiclens soaks 3 times daily for 15 minutes at a time. Plan for I&D at bedside tomorrow of the right fourth digit. Appreciate other medical specialty recommendations. Pain medication as needed. We will continue to follow patient during standing hospital. 2. Appreciate medical management 3. Pain management - [place] 4. DVT prophylaxis - Lovenox 5. GI prophylaxis - Dulcolax; Pepcid 6. PT/OT recs 7. Appreciate consult Time with Patient: Less than 30
--- NOTE | 2023-10-16 15:32 | P.PN ---
Subjective Progress Note Date: 10/16/23 23-year-old female came in the with the concerns of overdose patient was attempting suicide as per the family members. Patient to these medications approximately 9:52 PM on October 08 which was couple days ago patient was okay when she came in started getting worse started getting agitated drowsy and was subsequently admitted to the medicine service because of that reason. Patient the was found to have 2 bottles of Lamictal 100 mg, buspirone, diphenhydramine, sumatriptan, 6 lithium the patient is presently agitated, having muscle spasms horizontal nystagmus all of which are consistent with anticholinergic side effects can be secondary to sumatriptan overdose. Patient is receiving Valium at this time will add Ativan at an as-needed basis as well. Patient is getting IV fluids at 1 50 mL per hour patient had nausea vomiting unable to tolerate any oral medications and activated charcoal. Patient is completely confused at this time. EKG did not show any QT prolongation. 10/12/2023 Patient was seen in follow up today admitted to the intensive care unit. Currently intubated and sedated with FiO2 of 40%, patient was intubated for airway protection. Was having seizure like activity suspected. EEG shows background slowing of moderate to severe degree suggestive generalized cerebral dysfunction as seen with toxic metabolic encephalopathy or related to medication effect. When the propofol was discontinued the activity became more rhythmic high amplitude delta slowing and 2 Hz during which the patient's pupils are strict and dilating and also started having some slow body contractions. This may indicate convulsive tendency. Consider for prolonged EEG for further evaluation. Remains on IV valium, IVP keppra, IV versed running at 4.5 mls/hr, she is sedated with propofol. Her labs today are showing sodium 148, potassium 3.8, BUN 14, creatinine 1.51. AST/ALT elevated, creatine kinase [id number]. 10/13/2023 Patient evaluated intensive care unit currently intubated however she is off the propofol and she is responsive. Plan is for extubation today. Chest x-ray today shows no acute cardiopulmonary disease. Patient Had a repeat EEG last night which showed improvement per neurology although the official reports are not resulted. Lamictal level did come back at 36.7. LFTs and creatinine kinase are improving. Creatinine of 2.02 today. Patient is being followed closely by nephrology and remains in normal saline at 150 ML per hour. Additionally she is on IV Keppra, IV Versed, Valium. Patient is also on IV precedex. Patient is on enteral feeding. 10/14/2023 Patient remains in the intensive care unit. She was extubated without incident and continues on nasal cannula at 2 L. She is awake and alert and appropriately responding to questions. She is aware of her name and birthday and knows that her family is at the bedside. She is scheduled to get a repeat EEG. Renal function is improving her CK and LFTs remaining elevated. Remains on IV Keppra, Precedex drip and IV Valium. 10/15/2023 Patient will be moved to the medical floor today. She is seen in follow up si tting up at the bedside in the ICU alert x 2 to 3. Anxious to see her mom today. She is in a pleasant mood. house sitter has been placed at beside and pending psychiatric re-evaluation. Remains on Valium PRN. on IV hydralazine for elevated BPs improving today at 153/88. Potassium is 3.4 today, BUN 19, creatinine 1.44, LFTs improving. CK down to 6316. Ammonia level 12. 10/16/2023 Patient is evaluated today on the medical floor. Mentation alert x 3, she does report seeing spots and feels like she is seeing the "galaxy" this only happens at night. She is having elevated blood pressures 166/107 requiring a dose of IV hydralazine. Patients follow up EEG is routine and normal. Remains keppra which dose has been decreased. Patient has what appears to be an abscess on the tip of her finger. Review of Systems Constitutional: reports fatigue denied any fever. Cardio vascular: denied any chest pain, palpitations Gastrointestinal: denied any nausea, vomiting, diarrhea Pulmonary: Denied any shortness of breath cough Neurologic denied any new focal deficits All inpatient medications were reviewed and appropriate changes in these medications as dictated in the interval history and assessment and plan. PHYSICAL EXAMINATION: GENERAL: The patient is alert and oriented x2-3, not in any acute distress. Well developed, well nourished. HEENT: Pupils are round and equally reacting to light. EOMI. No scleral icterus. No conjunctival pallor. Normocephalic, atraumatic. No pharyngeal erythema. No thyromegaly. CARDIOVASCULAR: S1 and S2 present. No murmurs, rubs, or gallops. PULMONARY: Chest is clear to auscultation, no wheezing or crackles. ABDOMEN: Soft, nontender, nondistended, normoactive bowel sounds. No palpable organomegaly. MUSCULOSKELETAL: No joint swelling or deformity. EXTREMITIES: No cyanosis, clubbing, or pedal edema. NEUROLOGICAL: Gross neurological examination did not reveal any focal deficits. Diffuse weakness SKIN: No rashes. Assessment and plan -Drug overdose mostly due to Benadryl and sumatriptan lithium and lamictal; patients levels were normal. Lamictal level came back elevated at 36.7. Patient had anticholinergic side effects having myoclonus and concern for seizure like activity patient was intubated and has since been extubated. Repeat lamictal and keppra levels are pending. Off precedex. -Acute hypoxic respiratory failure from the overdose requiring Mechanical ventilator monitoring clinically patient has improved patient was extubated on 10/13/23 and currently on 2L of oxygen. -Suicidal ideation and suicide attempt: Psychiatry evaluated the patient does meet need for IP placement when medically stable. -Horizontal nystagmus secondary to anticholinergic side effects, supportive care continue with the Valium. This is improving. -Acute rhabdomyolysis secondary to JOCELYN/Myoclonus with elevated creatine kinase recommend to monitor LFTS/INR levels. Levels are currently improving and will recommend to repeat labs in the AM. -Acute kidney injury secondary to acute tubular necrosis and the rhabdomyolysis now with improving CK levels. -Bipolar disorder and depression -Nicotine use -Finger abscess on the tip of the right hand ring finger. Patient will be started on oral doxycycline due to medication allergies to penicillin and scheduled to undergo I and D tomorrow with orthopedics. DVT prophylaxis: Lovenox Gi prophylaxis: Pepcid Full Code Patients family at the bedside updated on plan of care more than 35 minutes spent in coordination of care. Nephrology, pulmonary/nuclear waste process operator, pschiatry and nephrology following closely. IV hydralazine added per nephrology for elevated pressures. Added amlodipine as well. Diet can be ugraded. Recommend to repeat labs in the morning. Physical therapy and occupational therapy have been consu lted for evaluation. Patient pending re-evaluation by psychiatry now that is more awake and alert and will be transferred for IP treatment when medically stable. Patient scheduled to undergo brain MRI. Patient also scheduled to get an I and D of the right finger abscess in the AM. Started on oral doxycycline. house sitter at the bedside to maintain a 1:[address] in [address]. The impression and plan of care has been dictated by Shu Mccoy, Nurse Practitioner as directed. Dr. Pam MD I have performed a history and physical examination and medical decision making of this patient, discussed the same with the dictator, and agree with the dictators assessment and plan as written, documented as a scribe. Based on total visit time, I have performed more than 50% of this visit. Objective - Vital Signs Vital signs: Vital Signs Temp 97.4 F L 10/16/23 08:30 Pulse 89 10/16/23 08:30 Resp 17 10/16/23 08:30 BP 163/95 10/16/23 10:59 Pulse Ox 93 L 10/16/23 08:30 FiO2 2 10/14/23 15:00 Intake & Output 10/15/23 10/16/23 10/16/23 18:59 06:59 18:59 Intake Total 110 Output Total 325 75 Balance -215 -75 Weight 102.3 kg 103.5 kg Intake: IV 100 Potassium Chloride 10 meq 100 In Water For Injection 1 100ml.bag @ 100 mls/hr IVPB Q1HR [facility] Rx#: [id number] Intake, IV Titration 10 Amount Sodium Chloride 0.45% 1, 10 000 ml @ 75 mls/hr IV . [id number] [facility] Rx#:[id number] Output: Urine 325 75 Other: Voiding Method Indwelling Catheter Indwelling Catheter Toilet # Voids 2 2 # Bowel Movements 3 ABP, PAP, CO, CI - Last Documented Arterial Blood Pressure 127/88 - Labs CBC & Chem 7: 10/16/23 05:57 10/16/23 05:57 Labs: Abnormal Lab Results - Last 24 Hours (Table) 10/16/23 10/16/23 Range/Units 05:57 05:57 Hgb 11.7 L (12.0-15.0) g/dL Hct 34.6 L (37.2-46.3) % MCV 79.5 L (80.0-97.0) FL MCH 26.9 L (27.0-32.0) pg Immature Gran # 0.05 H (0.00-0.04) X 10*3/uL Potassium 3.2 L (3.5-5.5) mmol/L AST 92 H (13-35) U/L ALT 100 H (8-44) U/L Total Protein 5.5 L (6.2-8.2) g/dL Albumin 3.3 L (3.8-4.9) g/dL Albumin/Globulin Ratio 1.50 L (1.60-3.17) Ratio Assessment and Plan Time with Patient: Less than 30
[2023-10-16] MEDS: amLODIPine 5 MG TAB PO SCH (16:17)
--- NOTE | 2023-10-16 16:18 | XR ---
EXAMINATION TYPE: XR shoulder limited 2 views LT, XR cervical spine 3 views limited DATE OF EXAM: 10/16/2023 COMPARISON: NONE HISTORY: 23-year-old female with paresthesia and pain with movement FINDINGS: Left shoulder: The AC joint is congruent and intact. Subacromial space is preserved. No acute fracture, subluxation, dislocation. Cervical spine: No predental space widening or prevertebral soft tissue swelling. Straightening of the normal cervica l lordosis but with preserved alignment. Disc spaces are also maintained. Normal odontoid view. IMPRESSION: 1. Left shoulder: No acute osseous abnormality seen. 2. Cervical spine: Straightening of the normal cervical lordosis could be positional or due to muscle spasm. No prevertebral soft tissue swelling or malalignment.
--- NOTE | 2023-10-16 17:00 | MR ---
EXAMINATION TYPE: MR brain wo/w con DATE OF EXAM: 10/16/2023 4:54 PM CLINICAL INDICATION:Female, 23 years old with history of encephalopathy with hallucination of unknown ; PHH, Encephalopathy with hallucination of unknown COMPARISON: 10/11/2023 TECHNIQUE: Multi planar, multi sequence imaging was performed through the brain including: T1, T2, In version recovery, susceptibility weighted imaging and gradient echo imaging and Diffusion weighted im aging. The patient was then given intravenous contrast and multi planar, T1 fat-saturation images wer e obtained. IV Contrast: 10 cc Gadavist FINDINGS: The pearl-white junctions, ventricular system, basal cisterns appear unremarkable. Diffusion-weighted imaging shows no evidence of restricted diffusion to suggest acute/subacute infarct. Intracranial ar terial flow voids are maintained. Midline structures show no abnormality. The susceptibility weighted images do not reveal any evidence for micro-hemorrhage. After administration of gadolinium, no abnor mal enhancement is seen. The bone marrow signal is within normal limits. Paranasal sinuses and mastoid air cells: No significant paranasal sinus disease. Visualized orbits: Orbital contents are intact. IMPRESSION: No evidence of intracranial mass, acute/subacute infarct, or abnormal enhancement.
[2023-10-16] MEDS: levETIRAcetam 500 MG TAB PO SCH (21:42)
[2023-10-16] MEDS: DOXYCYCLINE 100 MG CAP PO SCH (21:42)
[2023-10-17] MEDS: NICOTINE 14MG/24HR PATCH TRANSDERM SCH (08:13)
[2023-10-17] MEDS: FAMOTIDINE 20 MG/2 ML VIAL IV SCH (08:13)
[2023-10-17] MEDS: amLODIPine 5 MG TAB PO SCH (08:13)
[2023-10-17] MEDS: ENOXAPARIN 40 MG/0.4 ML SYRINGE SQ SCH (08:13)
[2023-10-17] MEDS: DOXYCYCLINE 100 MG CAP PO SCH ×2 (08:13→21:33)
[2023-10-17] MEDS: levETIRAcetam 500 MG TAB PO SCH ×2 (08:13→21:33)
--- NOTE | 2023-10-17 11:29 | P.PN ---
Subjective Progress Note Date: 10/17/23 This is a 23-year-old female with known history of bipolar disorder, depression, previous history of suicidal attempts, patient was brought into the ER on 10/09/23 at 6:3 0 p.m. and apparently the patient ingested an unknown amount of lamotrigine 100 mg, buspirone, Benadryl, Sumatriptan, and lithium and apoquel. While in the ER, the patient was noted to be initially stable, and she was seen by many consultants while in the ER including psychiatry. Patient went on to develop worsening symptoms of psychosis, involuntary muscle movements, possible seizures, and the first time I knew about this patient was early evening yesterday when the admitting physician Dr. Orozco called me , and the patient was requiring significant amount of benzodiazepines to keep her calm. Shortly after I talked over the phone, patient was intubated and she was having intermittent seizures. Patient was sent to the ICU, she was placed on Versed drip at 15 mg per hour and propofol at 50 mcg/kg/m. Neurology who have ready seen the patient, loaded her with Keppra, and the patient was kept intubated and mechanically ventilated overnight. No further seizures were noted. Patient is now on assist control rate of 18 tidal volume 450 FiO2 40% and PEEP of 5 ABG showed a pO2 of 99 pCO2 40 pH of 7.29. When the patient was intubated yesterday, I have recommended adjustment of the endotracheal tube because it was initially in the right mainstem bronchus, and this was done shortly after. Apparently was in control was aware of this patient, and the recommendation was mostly treatment with benzodiazepines. And no other specific treatment was recommended. This morning the patient remains on propofol at 50 mg/kg/m and on Versed 15 mg/h she is on IV fluid at 75 mL per hour in the form of D5W. Her CT of the brain and EEG are negative so far. Her urine output is about 40 mL per hour. Patient received 1 amp of bicarbonate earlier for acidosis/metabolic acidosis and my plan is to taper down Versed hopefully discontinue Versed today, and keep the patient on propofol. In the meantime I went ahead and established right radial arterial line in this patient she has enough IV access for the time being, does not require a central line placement. Chest x-ray showed adequate placement of the endotracheal tube and some left sided infiltrates atelectasis most likely secondary to the fact that the endotracheal tube was in the right mainstem bronchus when the patient was in the ER. Her basic metabolic profile is normal except sodium is 148 potassium 3.8 bicarbonate 17 BUN is 14 and creatinine is up to 1.51, and that being addressed by nephrology on the case. WBC count is 11.5 hemoglobin is 12.0. Platelets are normal however the patient seems to have developed significantly elevated CPK with 74,970, and I believe that is probably a picture of rhabdomyolysis from her seizures yesterday, and s he developing acute kidney injury from rhabdomyolysis Patient was seen and examined today on 10/13/2023, remains in the ICU, intubated and mechanically ventilated. Patient is on assist control rate of 18 tidal volume 450 FiO2 40% and PEEP of 5 ABG showed a pO2 of 127 pCO2 39 pH of 7.36. Patient remains on propofol at 50 mcg/kg/m Versed at 5 mg per hour, she is on vital HPF 50 mL/h IV fluid 0.9 normal saline at 1 50 mL per hour. Patient is sedated, however when the patient went off propofol and Versed I was able to wake of the patient, follows simple instructions but seems to be quite lethargic and sleepy hence I stressed transition the patient to a pressure support mode of mechanical ventilation with pressure support of 12 and CPAP. She is not quite ready to be extubated mostly because of her mental status and she seems to be quite sedated. I did recommend however stopping propofol and Versed. Her urine output is about 30-40 mL/h, creatinine is a bit worse today compared to yes terday, CPK is coming down to the 20,400 range. It was 74,000 yesterday. CBC showed WBC count of 10.4 hemoglobin 10.5. Patient was evaluated again today on 10/14/2023, remains in the ICU, remains on Precedex, at 1 g, per kilo per hour IV fluid D5 45 and 150 ML per hour. Patient was extubated yesterday, and she required significant amount of sedation after extubation because she was extremely agitated, I had multiple calls regarding this patient after extubation, received Ativan, along with Precedex, and the agitation was extremely difficult to control. Been recommended Haldol, and one dose was given that seemed to be most beneficial to control her sedation and agitation. Patient is doing well today, she is definitely not agitated, she is sedated, and does not seem to be in any distress, she is on 2 L nasal cannula. As far as her agitation is concerned, we will continue Precedex, we will restart the patient back on Seroquel, will use Haldol if necessary for extreme agitation. In the meantime I'm planning to keep the patient in the ICU and monitor at least for the next 24 hours. No seizure activities in the last 24 hours. Labs showed WBC count of 7.5 hemoglobin is 10, sodium 145 potassium 4.4 ER and is 19 and creatinine is down to 1.60, from 2.0 yesterday. And 1.93 the day before. CPK is down to 20,000. AST 231 and ALT is 111 improving steadily. The patient is seen today 10/15/2023 in follow-up in the intensive care unit. She is more awake and alert today. Maintaining good O2 saturations in the 90s on 3 L/m per nasal cannula. She has been off the Precedex infusion since 5 AM. No seizure activity. White count 7.9. Hemoglobin 11.0. Platelets 286. Sodium 144. Potassium 3.4. Bicarb 24. BUN 19. Creatinine 1.44. Glucose 73. AST 159. ALT 118. Creatinine kinase 6316. She remains on Lovenox for DVT prophylaxis. NicoDerm patch in place. Continue on Keppra. wardrobe mistress is at the bedside. The patient is seen today 10/16/2023 in follow-up on the regular medical floor. She was transferred out of the intensive care unit yesterday. She is currently sitting up in bed. Awake and alert. Oriented 3. Maintaining good O2 saturations in the 90s on room air. She's afebrile. Hemodynamically stable. Urine culture revealed no growth. White count 7.3. Hemoglobin 11.7. Platelets 246. Sodium 142. Potassium 3.2. Bicarb 26. BUN 13. Creatinine 1.1. AST 92. ALT 100. NicoDerm patch in place. Lovenox for DVT prophylaxis. She remains o n Keppra. No seizure activity in the last 24 hours. The patient is seen today 10/17/2023 in follow-up on the regular medical floor. She is currently sitting up in bed. Awake and alert in no acute distress. Oriented 3. Stable and on room air. No seizure activity. She did develop a right fourth digit paronychia and the plan is for incision and drainage by orthopedics today. She was initiated on doxycycline. She was also having some paresthesia and pain in the left shoulder. X-rays revealed no acute osseous abnormality. Cervical spine revealed straightening of normal cervical lordosis could be positional or due to muscle spasm. No prevertebral soft tissue swelling or malalignment. MRI of the brain revealed no evidence of intracranial mass, acute/subacute infarct, or abnormal enhancement. Her follow-up EEG was within normal limits. No seizure activity. No focal slowing. Objective - Vital Signs Vital signs: Vital Signs Temp 99.4 F 10/17/23 07:10 Pulse 96 10/17/23 07:10 Resp 20 10/17/23 07:10 BP 129/83 10/17/23 07:10 Pulse Ox 92 L 10/17/23 02:31 FiO2 2 10/14/23 15:00 Intake & Output 10/16/23 10/17/23 10/17/23 18:59 06:59 18:59 Weight 100.499 kg Other: Voiding Method Toilet Toilet Toilet # Voids 2 ABP, PAP, CO, CI - Last Documented Arterial Blood Pressure 127/88 - Exam GENERAL EXAM: Alert, pleasant, 23-year-old female, sitting up in bed, on room air, comfortable in no apparent distress. HEAD: Normocephalic. EYES: Normal reaction of pupils, equal size. NOSE: Clear with pink turbinates. THROAT: No erythema or exudates. NECK: No masses, no JVD. CHEST: No chest wall deformity. LUNGS: Equal air entry with no crackles, wheeze, rhonchi or dullness. CVS: S1 and S2 normal with no audible murmur, regular rhythm. ABDOMEN: No hepatosplenomegaly, normal bowel sounds, no guarding or rigidity. SPINE: No scoliosis or deformity SKIN: No rashes CENTRAL NERVOUS SYSTEM: No focal deficits, tone is normal in all 4 extremities. EXTREMITIES: Right fourth digit paronychia. There is no peripheral edema. No clubbing, no cyanosis. Peripheral pulses are intact. - Labs CBC & Chem 7: 10/16/23 05:57 10/16/23 05:57 Assessment and Plan Assessment: Acute hypoxic respiratory failure secondary to drug overdose, multiple drugs, mostly with excessive anticholinergic symptoms, requiring intubation and mechanical ventilation, patient was extubated on 10/13/2023. Recovered and on room air Suicidal ideation and suicide attempt, the plan is for inpatient psychiatric unit History of bipolar disorder and depression Acute rhabdomyolysis, improving Acute seizure disorder secondary to multiple drugs overdose and remains on Keppra. Follow-up EEG revealed no seizure activity. No focal slowing. Acute kidney injury secondary to ATN and rhabdomyolysis, recovered Acute transaminitis secondary to above, improving Acute metabolic acidosis secondary to kidney injury and secondary to seizures, resolved Hypovolemic hypernatremia, resolved Right hand fourth digit with paronychia, and is for incision and drainage per orthopedics Plan: The patient was seen and evaluated Cervical spine x-ray, left shoulder x-ray, brain MRI, medications reviewed Plan is for incision and drainage of the paronychia of the right fourth digit Currently stable and on room air Increase her activity as tolerated wardrobe mistress in attendance Plan is for inpatient psychiatric unit once cleared medically This patient was seen independently by the nurse practitioner I have personally seen and examined the patient, performed the documentation and the assessment and plan as written. Number of minutes spent on the visit: 22.
[2023-10-17 11:30] LABS: BUN/Creat Ratio 9.73 Ratio (12.00-20.00); Blood Urea Nitrogen 10.7 mg/dL (9.0-27.0); Carbon Dioxide 27.3 mmol/L (21.6-31.8); Chloride 102 mmol/L (96-109); Glucose 90 mg/dL (70-110); Potassium 3.6 mmol/L (3.5-5.5); Sodium 141 mmol/L (135-145)
[2023-10-17 11:31] LABS: Calcium 9.4 mg/dL (8.7-10.3); Magnesium 1.8 mg/dL (1.5-2.4)
--- NOTE | 2023-10-17 14:42 | P.PCN ---
Date of Procedure: 10/17/23 Preoperative Diagnosis: 1.) Right ring finger paronychia Postoperative Diagnosis: 1.) Right ring finger paronychia Procedure(s) Performed: 1.) Right ring finger abscess incision and drainage Anesthesia: local Surgeon: Agustin Hollins Estimated Blood Loss (ml): 5 Pathology: none sent Condition: stable Description of Procedure: This is a 23 year old female who presents with a right ring finger paronychia. Bedside I&D is recommended due to the worsening of her symptoms and she is agreeable. Risks and benefits of surgery were discussed with the patient including bleeding, damage to surrounding tissue, infection, need for further surgery and the patient wished to proceed with the procedure. Operative Narrative: Digital block was performed with 7cc's of 0.5% Bupivicaine. After adequate analgesia was achieved, a 15 blade scalpel was used to incise the eponychial fold and immediately blood tinged purulence was able to be expressed. The same was done along both the radial and ulnar paronychial folds and further decompression was able to be accomplished. More purulence was able to be expressed with direct pressure. The wound was then covered with 4x4s and a alexsander wrap. Patient tolerated the procedure well. Disposition: She may remove the bandage later today and continue warm soapy soaks 3 times a day for 3 days. She may let the wound air out throughout the day but it is recommended to keep the finger covered if it continues to bleed. Recommend PO Augmentin x7 days. If the patients symptoms fail to improve in 3-4 weeks she can schedule further follow up in the outpatient setting if needed. Agustin Hollins D.O. Orthopedic Hand/Upper Extremity Surgeon
--- NOTE | 2023-10-17 15:12 | P.PN ---
Subjective Progress Note Date: 10/17/23 I am following-up with patient and she feels she is doing better. She feel her visual hallucination is better today compared to yesterday but is not resolved. Objective - Vital Signs Vital signs: Vital Signs Temp 98.2 F 10/17/23 14:14 Pulse 86 10/17/23 14:14 Resp 16 10/17/23 14:14 BP 130/84 10/17/23 14:14 Pulse Ox 96 10/17/23 14:14 FiO2 2 10/14/23 15:00 Intake & Output 10/16/23 10/17/23 10/17/23 18:59 06:59 18:59 Weight 100.499 kg Other: Voiding Method Toilet Toilet Toilet # Voids 2 ABP, PAP, CO, CI - Last Documented Arterial Blood Pressure 127/88 - Exam Gen. Is not in acute distress Neuro-the patient is awake alert oriented to self place and time. Is following simple commands. No aphasia and no neglect. Motor: The strength is 5 out of 5 throughout. Sensation is normal to touch throughout. - Labs CBC & Chem 7: 10/16/23 05:57 10/17/23 06:09 Labs: Abnormal Lab Results - Last 24 Hours (Table) 10/17/23 Range/Units 06:09 BUN/Creatinine Ratio 9.73 L (12.00-20.00) Ratio Assessment and Plan Assessment: * Suicide attempt with overdose on multiple medications. Based upon examination, it is quite positive that she overdosed on Lamictal (with profound nystagmus, dizziness), and Benadryl, with anticholinergic effect, ibuprofen with liver and renal dysfunction. She may have overdosed on Imitrex as well producing excessive serotonin. * Acute delirium/metabolic encephalopathy, likely due to above---drastic improvement. Last EEG on 10/15/23 is normal * Acute rhabdomyolysis--trending down. * Acutely elevated hepatic enzymes, improving * Acute renal insufficiency, improving today * Bipolar disorder, borderline personality disorder, anxiety depression (per patient's father's report) * History of suicide attempt in the past Plan: * Patient mentation has drastically improved. According to the nurse she possibly was having myoclonus and alert state likely due to toxic metabolic derangement. Even Dr. Araujo's note stated that her convulsions resolved. * Initial EEG performed 10/12/2023 was reported as abnormal due to background slowing of moderate to severe degree, suggestive of generalized cerebral dysfunction as can be seen with toxic metabolic encephalopathy or related to medication effect. When the propofol was discontinued, the activity became more rhythmic, high amplitude delta slowing into words, during which the patient's pupils were constructing and dilating, and later also started having some slow body contractions. This may indicate convulsive tendency. May consider prolonged EEG for further evaluation. * Repeat EEG performed 10/13/2023 was reported as abnormal due to presence of background disorganization with frontal intermittent rhythmic delta activity seen during the study. This is suggestive of generalized cerebral dysfunction as can be seen with toxic metabolic encephalopathy or related to diffuse structural brain abnormality. Clinical correlation is recommended. No clear- cut epileptiform activity was seen. Frontal intermittent rhythmic delta activity may be seen with encephalopathy, although may suggest underlying convulsive tendency. Follow-up EEG recommended, if clinically indicated. * Most recent EEG on 10/15/23: Normal. * Repeat Lamictal level. Lamictal level 36.7(2-15), on 10/11/2023. * Seems the Keppra was started by Dr. Lopez during this admission for concern for seizures. Her most recent EEG was negative for seizures. Continue Keppra 500 mg twice a day. Recommend patient to follow-up with a neurologist as an outpatient for further tapering down of the Keppra once that they feel safe as an outpatient and eventually stop and it is not needed. Recommend patient to follow-up with a neurologist as an outpatient within 2-3 weeks if possible. * MRI the brain: It is reported as No evidence of intracranial mass, acute/subacute infarct or abnormal enhancement. * CT head showed no acute process. * Ammonia level: 12 * Patient has developed rhabdomyolysis, Symptomatic treatment. Hydration, nephrology on board. * Hepatic functions have slightly worsened today, although renal functions have improved today. * Telemetry monitoring * Seizure/fall precautions * Psychiatry is reconsulted. * We'll defer the rest of medical management to primary team There is no further neurological work-up. Will continue to follow--up with patient sporadically. Dr. Lopez will resume neurology service on 10/19/2023 A.M. Time with Patient: Less than 30
--- NOTE | 2023-10-17 19:22 | P.PN ---
Subjective Patient is seen for follow-up for acute kidney injury, ATN currently nonoliguric. She was admitted with a suicide attempt with overdose on Benadryl and Lamictal. Patient has been extubated and transferred out of the ICU. Renal function has improved significantly. Serum creatinine Is down to 1.1 mg/dL. Potassium 3.6 today. Good urine output. Objective - Vital Signs Vital signs: Vital Signs Temp 98.2 F 10/17/23 14:14 Pulse 86 10/17/23 14:14 Resp 16 10/17/23 14:14 BP 130/84 10/17/23 14:14 Pulse Ox 96 10/17/23 14:14 FiO2 2 10/14/23 15:00 Intake & Output 10/17/23 10/17/23 10/18/23 06:59 18:59 06:59 Weight 100.499 kg Other: Voiding Method Toilet Toilet ABP, PAP, CO, CI - Last Documented Arterial Blood Pressure 127/88 - Exam Patient is awake, alert oriented 3 She is comfortable. No acute distress No edema noted. [employer] exam grossly intact - Labs CBC & Chem 7: 10/16/23 05:57 10/17/23 06:09 Labs: Abnormal Lab Results - Last 24 Hours (Table) 10/17/23 Range/Units 06:09 BUN/Creatinine Ratio 9.73 L (12.00-20.00) Ratio Assessment and Plan Assessment: 1. Acute kidney injury secondary to ATN. Patient has rhabdomyolysis[place] [address] and [place] 6316. [place] level not high. Renal function is improving.. Status post IV fluids. Baseline creatinine 0.8-0.9. 2. Suicide attempt. She took multiple medications including Benadryl and Lamictal. 3. Seizures. 4. Metabolic acidosis secondary to acute kidney injury, IV fluids. Can also be from lactic acidosis from seizures. Resolved. 5. Bipolar disorder. 6. Hypernatremia from lack oral water intake. Patient not polyuric. Status post D5W . Improved. Plan: Continue to encourage increased oral intake.
[2023-10-17] MEDS ORDERED: POTASSIUM CHLORIDE ER 20 MEQ TAB.ER PO STA (20:09)
--- NOTE | 2023-10-17 20:15 | P.PN ---
Subjective 23-year-old female came in the with the concerns of overdose patient was attempting suicide as per the family members. Patient to these medications approximately 9:52 PM on October 08 which was couple days ago patient was okay when she came in started getting worse started getting agitated drowsy and was subsequently admitted to the medicine service because of that reason. Patient the was found to have 2 bottles of Lamictal 100 mg, buspirone, diphenhydramine, sumatriptan, 6 lithium the patient is presently agitated, having muscle spasms horizontal nystagmus all of which are consistent with anticholinergic side effects can be secondary to sumatriptan overdose. Patient is receiving Valium at this time will add Ativan at an as-needed basis as well. Patient is getting IV fluids at 1 50 mL per hour patient had nausea vomiting unable to tolerate any oral medications and activated charcoal. Patient is completely confused at this time. EKG did not show any QT prolongation. 10/12/2023 Patient was seen in follow up today admitted to the intensive care unit. Currently intubated and sedated with FiO2 of 40%, patient was intubated for airway protection. Was having seizure like activity suspected. EEG shows background slowing of moderate to severe degree suggestive generalized cerebral dysfunction as seen with toxic metabolic encephalopathy or related to medication effect. When the propofol was discontinued the activity became more rhythmic high amplitude delta slowing and 2 Hz during which the patient's pupils are strict and dilating and also started having some slow body contractions. This may indicate convulsive tendency. Consider for prolonged EEG for further evaluation. Remains on IV valium, IVP keppra, IV versed running at 4.5 mls/hr, she is sedated with propofol. Her labs today are showing sodium 148, potassium 3.8, BUN 14, creatinine 1.51. AST/ALT elevated, creatine kinase 90256. 10/13/2023 Patient evaluated intensive care unit currently intubated however she is off the propofol and she is responsive. Plan is for extubation today. Chest x-ray today shows no acute cardiopulmonary disease. Patient Had a repeat EEG last night which showed improvement per neurology although the official reports are not resulted. Lamictal level did come back at 36.7. LFTs and creatinine kinase are improving. Creatinine of 2.02 today. Patient is being followed closely by nephrology and remains in normal saline at 150 ML per hour. Additionally she is on IV Keppra, IV Versed, Valium. Patient is also on IV precedex. Patient is on enteral feeding. 10/14/2023 Patient remains in the intensive care unit. She was extubated without incident and continues on nasal cannula at 2 L. She is awake and alert and appropriately responding to questions. She is aware of her name and birthday and knows that her family is at the bedside. She is scheduled to get a repeat EEG. Renal function is improving her CK and LFTs remaining elevated. Remains on IV Keppra, Precedex drip and IV Valium. 10/15/2023 Patient will be moved to the medical floor today. She is seen in follow up sitting up at the bedside in the ICU alert x 2 to 3. Anxious to see her mom today. She is in a pleasant mood. child care sitter has been placed at beside and pending psychiatric re-evaluation. Remains on Valium PRN. on IV hydralazine for elevated BPs improving today at 153/88. Potassium is 3.4 today, BUN 19, creatinine 1.44, LFTs improving. CK down to 6316. Ammonia level 12. 10/16/2023 Patient is evaluated today on the medical floor. Mentation alert x 3, she does report seeing spots and feels like she is seeing the "galaxy" this only happens at night. She is having elevated blood pressures 166/107 requiring a dose of IV hydralazine. Patients follow up EEG is routine and normal. Remains keppra which dose has been decreased. Patient has what appears to be an abscess on the tip of her finger. 10/17/2023 Patient lying in bed, relaxed pleasant and smiling. She denies specific complaint. No new complaint. Her distal phalanx of the right fourth finger is a swollen red and tender with diagnosis of paronychia and plan for I&D by orthopedic team today. She's continue on doxycycline Neurology team on the case and they recommended Keppra 500 mg at tapered off as an outpatient, patient informed. Possible discharge in 24-48 hours to the inpatient psych unit. Sitter at bedside. Objective - Vital Signs Vital signs: Vital Signs Temp 99.4 F 10/17/23 07:10 Pulse 96 10/17/23 07:10 Resp 20 10/17/23 07:10 BP 129/83 10/17/23 07:10 Pulse Ox 92 L 10/17/23 02:31 FiO2 2 10/14/23 15:00 Intake & Output 10/16/23 10/17/23 10/17/23 18:59 06:59 18:59 Weight 100.499 kg Other: Voiding Method Toilet Toilet Toilet # Voids 2 ABP, PAP, CO, CI - Last Documented Arterial Blood Pressure 127/88 - Exam GENERAL: The patient is alert and oriented x3, not in any acute distress. Well developed, well nourished. HEENT: Pupils are round and equally reacting to light. EOMI. No scleral icterus. No conjunctival pallor. Normocephalic, atraumatic. No pharyngeal erythema. No thyromegaly. CARDIOVASCULAR: S1 and S2 present. No murmurs, rubs, or gallops. PULMONARY: Chest is clear to auscultation, no wheezing , no crackles. ABDOMEN: Soft, nontender, nondistended, normoactive bowel sounds. No palpable organomegaly. MUSCULOSKELETAL: No joint swelling or deformity. -EXTREMITIES: No cyanosis, clubbing, or pedal edema. Right 4th finger paronychia NEUROLOGICAL: Gross neurological examination did not reveal any focal deficits. SKIN: No rashes. no petechiae. - Labs CBC & Chem 7: 10/16/23 05:57 10/17/23 06:09 Labs: Abnormal Lab Results - Last 24 Hours (Table) 10/17/23 Range/Units 06:09 BUN/Creatinine Ratio 9.73 L (12.00-20.00) Ratio Assessment and Plan Assessment: Assessment and plan -Drug overdose mostly due to Benadryl and sumatriptan lithium and lamictal; pa tients levels were normal. Lamictal level came back elevated at 36.7. Patient had anticholinergic side effects having myoclonus and concern for seizure like activity patient was intubated and has since been extubated. Repeat lamictal and keppra levels are pending. Off precedex. -Acute hypoxic respiratory failure from the overdose requiring Mechanical ventilator monitoring clinically patient has improved patient was extubated on 10/13/23 and currently on 2L of oxygen. -Suicidal ideation and suicide attempt: Psychiatry evaluated the patient does meet need for IP placement when medically stable. -Horizontal nystagmus secondary to anticholinergic side effects, supportive care continue with the Valium. This is improving. -Acute rhabdomyolysis secondary to JOCELYN/Myoclonus with elevated creatine kinase recommend to monitor LFTS/INR levels. Levels are currently improving and will recommend to repeat labs in the AM. -Acute kidney injury secondary to acute tubular necrosis and the rhabdomyolysis now with improving CK levels. -Bipolar disorder and depression -Nicotine use -Finger abscess on the tip of the right hand ring finger. Patient will be started on oral doxycycline due to medication allergies to penicillin and scheduled to undergo I and D tomorrow with orthopedics. DVT prophylaxis: Lovenox Gi prophylaxis: Pepcid Full Code
[2023-10-17] MEDS ORDERED: BENZOCAINE/MENTHOL LOZENG 1 EACH LOZENGE MUCOUS MEM PRN (21:01)
[2023-10-17] MEDS ORDERED: BENZONATATE 100 MG CAP PO PRN (21:01)
[2023-10-17] MEDS: MAGNESIUM OXIDE 400 MG TAB PO SCH (21:34)
[2023-10-18 08:39] LABS: Potassium 3.4 mmol/L (3.5-5.5)
[2023-10-18] MEDS ORDERED: POTASSIUM CHLORIDE ER 20 MEQ TAB.ER PO STA ×2 (08:54→14:41)
[2023-10-18] MEDS: NICOTINE 14MG/24HR PATCH TRANSDERM SCH (10:07)
[2023-10-18] MEDS: ENOXAPARIN 40 MG/0.4 ML SYRINGE SQ SCH (10:07)
[2023-10-18] MEDS: amLODIPine 5 MG TAB PO SCH (10:07)
[2023-10-18] MEDS: DOXYCYCLINE 100 MG CAP PO SCH ×2 (10:07→21:20)
[2023-10-18] MEDS: FAMOTIDINE 20 MG/2 ML VIAL IV SCH (10:08)
[2023-10-18] MEDS: levETIRAcetam 500 MG TAB PO SCH ×2 (10:08→21:20)
[2023-10-18] MEDS: MAGNESIUM OXIDE 400 MG TAB PO SCH ×3 (10:08→21:20)
[2023-10-18] MEDS: ONDANSETRON 4 MG/2 ML VIAL IVP PRN (10:37)
--- NOTE | 2023-10-18 12:16 | P.DS ---
Providers Date of admission: 10/10/23 17:56 Attending physician: Kirsten Adams Consults: 10/10/23 17:48 Consult Physician Routine Consulting Provider: Campos Horn Consult Reason/Comments: suicidal Do you want consulting provider notified?: Already Contacted 10/10/23 22:27 Consult Physician Routine Consulting Provider: Aidan Lopez Consult Reason/Comments: ams, Do you want consulting provider notified?: Yes 10/11/23 16:25 Consult Physician Routine Consulting Provider: Bartolo Garza Consult Reason/Comments: Drug overdose Do you want consulting provider notified?: Already Contacted 10/11/23 23:31 Consult Physician Urgent Consulting Provider: Uzair Lewis Consult Reason/Comments: intentional OD, hypernatremia, tim Do you want consulting provider notified?: Yes 10/15/23 10:18 Consult Physician Routine Consulting Provider: Campos Horn Consult Reason/Comments: overdose re evaluation Do you want consulting provider notified?: Yes 10/16/23 13:04 Consult Physician Routine Consulting Provider: Agustin Hollins Consult Reason/Comments: Finger abscess Do you want consulting provider notified?: Yes Primary care physician: Patrica Whitley [facility] Course: Diagnoses: -Drug overdose mostly due to Benadryl and sumatriptan lithium and lamictal; patients levels were normal. Lamictal level came back elevated at 36.7. Patient had anticholinergic side effects having myoclonus and concern for seizure like activity patient was intubated and has since been extubated. Patient currently on keppra . Neurologist recommended to taper it off as an outpatient -Acute hypoxic respiratory failure from the overdose requiring Mechanical ventilator monitoring clinically patient has improved patient was extubated on 10/13/23 and currently on room air with no respiratory symptoms -Suicidal ideation and suicide attempt: Psychiatry evaluated the patient does meet need for IP placement when medically stable. -Horizontal nystagmus secondary to anticholinergic side effects, supportive care continue with the Valium. This is improving. -Acute rhabdomyolysis secondary to TIM/Myoclonus with elevated creatine kinase , improved currently patient is asymptomatic -Acute kidney injury secondary to acute tubular necrosis and the rhabdomyolysis now with improving CK levels. -Bipolar disorder and depression -Nicotine use -Paronychia: Finger abscess on the tip of the right hand ring finger. Patient will be started on oral doxycycline due to medication allergies to penicillin and she is status post I and D with orthopedics. Hospital course: 23-year-old female came in the with the concerns of overdose patient was attempting suicide as per the family members. Patient to these medications approximately 9:52 PM on October 08 which was couple days ago patient was okay when she came in started getting worse started getting agitated drowsy and was subsequently admitted to the medicine service because of that reason. Patient the was found to have 2 bottles of Lamictal 100 mg, buspirone, diphenhydramine, sumatriptan, 6 lithium the patient was agitated, having muscle spasms horizontal nystagmus all of which are consistent with anticholinergic side effects can be secondary to sumatriptan overdose. Patient is receiving Valium at this time will add Ativan at an as-needed basis as well. Patient is getting IV fluids at 1 50 mL per hour patient had nausea vomiting unable to tolerate any oral medications and activated charcoal. Patient admitted to intensive care unit where she is got intubated , on 10/14 patient got extubated. Patient stabilized and moved to the general medical floor with suicide PRECAUTION Over the last 3 days patient was alert awake oriented, mentation at baseline, currently she is saturating well 97% on room air with no tachypnea dyspnea, no chest pain or coughing. Also patient denies any chest pain or change in urine or bowel habits. No fever.She denies muscle pain or tenderness or weakness Yesterday patient went to I&D for her right fourth finger paronychia, she tolerated the procedure well. Currently she is covered with doxycycline. Orthopedic team already evaluated her today and cleared her for discharge. Continue monitoring and wound care to the finger wound She was also evaluated by neurologist. Keppra was started by Dr. Lopez during this admission for concern for seizures. Her most recent EEG was negative for seizures. Continue Keppra 500 mg twice a day. Recommend patient to follow-up with a neurologist as an outpatient for further tapering down of the Keppra once that they feel safe as an outpatient and eventually stop and it is not needed. Recommend patient to follow-up with a neurologist as an outpatient within 2-3 weeks if possible. MRI the brain: It is reported as No evidence of intracranial mass, acute/subacute infarct or abnormal enhancement. Nephrology was on the case for her rhabdomyolysis, that's is improving patient currently asymptomatic. Creatinine kinase is pending but is trending down Patient evaluated by psychiatric service and found patient meets inpatient criteria once medically stable patient can be transferred to 3 . Patient is able to go to psych unit today. Patient was cleared for discharge by all consultants wouldn't pulmonary, nephrology, neurologic, orthopedic. Problems and management plan were discussed with the patient and he verbalized understanding and acceptance Patient was found stable and can be discharged home in guarded prognosis however he needs follow-up as an outpatient. Patient was instructed to follow up with PCP Dr. Patrica dunaway within one week and patient agrees We recommend patient follow up with a neurologist in 2-3 weeks after discharge, contact information for Dr. Waddell neurologist as placed in her discharge instructions We recommend patient follow up with immigration services officer Dr. Barrera in 2 weeks after discharge area Physical exam Gen: patient is a AAOx3, no distress CVS: S1-S2, RRR, no murmur Lungs: B/L CTA, no wheezing Abdomen: soft, no distention, no tenderness, positive bowel sounds -Extremity: no leg edema or induration. Right fourth finger wound is healing and is in dressing Time spent more than 35 minutes Patient Condition at Discharge: Serious Plan - Discharge Summary Discharge Rx Participant: No New Discharge Prescriptions: New levETIRAcetam [Keppra] 500 mg PO Q12HR tab amLODIPine [Norvasc] 5 mg PO DAILY tab Benzonatate [Tessalon Perles] 100 mg PO TID PRN cap PRN Reason: Cough Doxycycline [Vibramycin] 100 mg PO BID 6 Days #12 cap bisacodyL [Dulcolax] 10 mg RECTAL DAILY PRN suppositor PRN Reason: Constipation Nicotine 14Mg/24Hr Patch [Habitrol] 1 patch TRANSDERM DAILY patch Magnesium Oxide [Mag-Ox] 400 mg PO TID 5 Days #15 tab Continue Ibuprofen [Motrin] 800 mg PO Q8H PRN PRN Reason: Pain Or Fever > 100.5 SUMAtriptan succinate 100 mg PO BID PRN PRN Reason: Migraine Headache Omeprazole [PriLOSEC] 20 mg PO DAILY No Action lamoTRIgine [lamoTRIgine ER] 300 mg PO DAILY busPIRone HCl [Buspar] 5 mg PO BID Shumway Carbonate [Shumway Carbonate ER] 300 mg PO BID diphenhydrAMINE [Benadryl] 25 mg PO QID PRN PRN Reason: Allergy Symptoms Discharge Medication List Ibuprofen [Motrin] 800 mg PO Q8H PRN 10/09/23 [History] Shumway Carbonate [Shumway Carbonate ER] 300 mg PO BID 10/09/23 [History] Omeprazole [PriLOSEC] 20 mg PO DAILY 10/09/23 [History] SUMAtriptan succinate 100 mg PO BID PRN 10/09/23 [History] busPIRone HCl [Buspar] 5 mg PO BID 10/09/23 [History] diphenhydrAMINE [Benadryl] 25 mg PO QID PRN 10/09/23 [History] lamoTRIgine [lamoTRIgine ER] 300 mg PO DAILY 10/09/23 [History] Benzonatate [Tessalon Perles] 100 mg PO TID PRN cap 10/18/23 [Rx] Doxycycline [Vibramycin] 100 mg PO BID 6 Days #12 cap 10/18/23 [Rx] Magnesium Oxide [Mag-Ox] 400 mg PO TID 5 Days #15 tab 10/18/23 [Rx] Nicotine 14Mg/24Hr Patch [Habitrol] 1 patch TRANSDERM DAILY patch 10/18/23 [Rx] amLODIPine [Norvasc] 5 mg PO DAILY tab 10/18/23 [Rx] bisacodyL [Dulcolax] 10 mg RECTAL DAILY PRN suppositor 10/18/23 [Rx] levETIRAcetam [Keppra] 500 mg PO Q12HR tab 10/18/23 [Rx] Follow up Appointment(s)/Referral(s): Agustin Hollins DO [Doctor of Osteopathic Medicine] - 1 Week Patrica Dunaway DO [Primary Care Provider] - 1-2 days Luisito Waddell MD [Medical Doctor] - 2 Weeks (neurologist ) Activity/Diet/Wound Care/Special Instructions: regular diet activity as tolerated Continue Keppra 500 mg twice a day. Recommend patient to follow-up with a neurologist as an outpatient for further tapering down of the Keppra once that they feel safe as an outpatient and eventually stop and it is not needed. Recommend patient to follow-up with a neurologist as an outpatient within 2-3 weeks if possible. Discharge Disposition: TRANSFER TO PSYCH HOSP/UNIT
--- NOTE | 2023-10-18 12:18 | P.PN ---
Subjective Progress Note Date: 10/18/23 Principal diagnosis: Right ring finger paronychia Patient was seen at bedside this morning sitting up with dressing over right ring finger. Patient says she is not having any pain to the right ring finger. Patient says once procedure at bedside was performed yesterday for incision and drainage she had immediate relief. Patient does note some swelling in the right ring finger, but does say that it has been improving since the procedure at bedside was performed yesterday. Patient denies any other issues at this time. Objective - Vital Signs Vital signs: Vital Signs Temp 97.7 F 10/18/23 07:49 Pulse 80 10/18/23 07:49 Resp 16 10/18/23 07:49 BP 150/79 10/18/23 07:49 Pulse Ox 97 10/18/23 07:49 FiO2 2 10/14/23 15:00 Intake & Output 10/17/23 10/18/23 10/18/23 18:59 06:59 18:59 Other: Voiding Method Toilet Toilet Toilet # Voids 3 ABP, PAP, CO, CI - Last Documented Arterial Blood Pressure 127/88 - Exam Inspection: Right ring finger presents with decrease in swelling and erythema. Swelling is present both at the dorsum and ulnar aspect of the finger. Sensation: Equal, symmetric, bilaterally intact throughout the upper extremities on exam Palpation: Significant tenderness to palpation along the distal aspect of the right ring finger at the base of the nailbed. Nontender to palpation throughout the palm and dorsal aspect of the right hand. Nontender to palpation throughout the web spaces in the right hand. Range of motion: Patient does have improved, yet still limited range of motion in the DIPJ and PIPJ in the right ring finger secondary to swelling in the right ring finger. Full range of motion throughout other digits in upper extremities. Full range of motion throughout right wrist in flexion/extension. Motor: 5/5 in all major motor groups. Neurovascular: Radial pulses intact, 2+ bilaterally. Cap refill under 3 seconds in digits upper extremities. Special tests: Negative Homans bilaterally. - Labs CBC & Chem 7: 10/16/23 05:57 10/18/23 05:30 Labs: Abnormal Lab Results - Last 24 Hours (Table) 10/18/23 Range/Units 05:30 Potassium 3.4 L (3.5-5.5) mmol/L Assessment and Plan Assessment: 1. Right fourth digit paronychia - Postop day 1 status post right finger abscess I&D Plan: 1. Right fourth digit paronychia - right ring finger abscess I&D performed yesterday at bedside. Dressing change bedside today. At this time we are recommending continued Hibiclens soaks 3 times daily for 15 minutes at a time. Continue antibiotics daily. Appreciate other medical specialty recommendations. Pain medication as needed. Patient is stable from orthopedic standpoint for discharge home. At this time orthopedics is signing off. Please do not hesit ate to contact us with any further questions. 2. Appreciate medical management 3. Pain management - Archer 4. DVT prophylaxis - Lovenox 5. GI prophylaxis - Dulcolax; Pepcid 6. PT/OT recs Time with Patient: Less than 30
[2023-10-18 14:17] VITALS: BMI 39.2
[2023-10-18 14:18] VITALS: BP 146/73; PULSE 94; RESP 18; TEMP 97.8
--- NOTE | 2023-10-18 14:33 | P.PN ---
Subjective Progress Note Date: 10/18/23 This is a 23-year-old female with known history of bipolar disorder, depression, previous history of suicidal attempts, patient was brought into the ER on 10/09/23 at 6:3 0 p.m. and apparently the patient ingested an unknown amount of lamotrigine 100 mg, buspirone, Benadryl, Sumatriptan, and lithium and apoquel. While in the ER, the patient was noted to be initially stable, and she was seen by many consultants while in the ER including psychiatry. Patient went on to develop worsening symptoms of psychosis, involuntary muscle movements, possible seizures, and the first time I knew about this patient was early evening yesterday when the admitting physician Dr. Orozco called me , and the patient was requiring significant amount of benzodiazepines to keep her calm. Shortly after I talked over the phone, patient was intubated and she was having intermittent seizures. Patient was sent to the ICU, she was placed on Versed drip at 15 mg per hour and propofol at 50 mcg/kg/m. Neurology who have ready seen the patient, loaded her with Keppra, and the patient was kept intubated and mechanically ventilated overnight. No further seizures were noted. Patient is now on assist control rate of 18 tidal volume 450 FiO2 40% and PEEP of 5 ABG showed a pO2 of 99 pCO2 40 pH of 7.29. When the patient was intubated yesterday, I have recommended adjustment of the endotracheal tube because it was initially in the right mainstem bronchus, and this was done shortly after. Apparently was in control was aware of this patient, and the recommendation was mostly treatment with benzodiazepines. And no other specific treatment was recommended. This morning the patient remains on propofol at 50 mg/kg/m and on Versed 15 mg/h she is on IV fluid at 75 mL per hour in the form of D5W. Her CT of the brain and EEG are negative so far. Her urine output is about 40 mL per hour. Patient received 1 amp of bicarbonate earlier for acidosis/metabolic acidosis and my plan is to taper down Versed hopefully discontinue Versed today, and keep the patient on propofol. In the meantime I went ahead and established right radial arterial line in this patient she has enough IV access for the time being, does not require a central line placement. Chest x-ray showed adequate placement of the endotracheal tube and some left sided infiltrates atelectasis most likely secondary to the fact that the endotracheal tube was in the right mainstem bronchus when the patient was in the ER. Her basic metabolic profile is normal except sodium is 148 potassium 3.8 bicarbonate 17 BUN is 14 and creatinine is up to 1.51, and that being addressed by nephrology on the case. WBC count is 11.5 hemoglobin is 12.0. Platelets are normal however the patient seems to have developed significantly elevated CPK with 74,970, and I believe that is probably a picture of rhabdomyolysis from her seizures yesterday, and s he developing acute kidney injury from rhabdomyolysis Patient was seen and examined today on 10/13/2023, remains in the ICU, intubated and mechanically ventilated. Patient is on assist control rate of 18 tidal volume 450 FiO2 40% and PEEP of 5 ABG showed a pO2 of 127 pCO2 39 pH of 7.36. Patient remains on propofol at 50 mcg/kg/m Versed at 5 mg per hour, she is on vital HPF 50 mL/h IV fluid 0.9 normal saline at 1 50 mL per hour. Patient is sedated, however when the patient went off propofol and Versed I was able to wake of the patient, follows simple instructions but seems to be quite lethargic and sleepy hence I stressed transition the patient to a pressure support mode of mechanical ventilation with pressure support of 12 and CPAP. She is not quite ready to be extubated mostly because of her mental status and she seems to be quite sedated. I did recommend however stopping propofol and Versed. Her urine output is about 30-40 mL/h, creatinine is a bit worse today compared to yes terday, CPK is coming down to the 20,400 range. It was 74,000 yesterday. CBC showed WBC count of 10.4 hemoglobin 10.5. Patient was evaluated again today on 10/14/2023, remains in the ICU, remains on Precedex, at 1 g, per kilo per hour IV fluid D5 45 and 150 ML per hour. Patient was extubated yesterday, and she required significant amount of sedation after extubation because she was extremely agitated, I had multiple calls regarding this patient after extubation, received Ativan, along with Precedex, and the agitation was extremely difficult to control. Been recommended Haldol, and one dose was given that seemed to be most beneficial to control her sedation and agitation. Patient is doing well today, she is definitely not agitated, she is sedated, and does not seem to be in any distress, she is on 2 L nasal cannula. As far as her agitation is concerned, we will continue Precedex, we will restart the patient back on Seroquel, will use Haldol if necessary for extreme agitation. In the meantime I'm planning to keep the patient in the ICU and monitor at least for the next 24 hours. No seizure activities in the last 24 hours. Labs showed WBC count of 7.5 hemoglobin is 10, sodium 145 potassium 4.4 ER and is 19 and creatinine is down to 1.60, from 2.0 yesterday. And 1.93 the day before. CPK is down to 20,000. AST 231 and ALT is 111 improving steadily. The patient is seen today 10/15/2023 in follow-up in the intensive care unit. She is more awake and alert today. Maintaining good O2 saturations in the 90s on 3 L/m per nasal cannula. She has been off the Precedex infusion since 5 AM. No seizure activity. White count 7.9. Hemoglobin 11.0. Platelets 286. Sodium 144. Potassium 3.4. Bicarb 24. BUN 19. Creatinine 1.44. Glucose 73. AST 159. ALT 118. Creatinine kinase 6316. She remains on Lovenox for DVT prophylaxis. NicoDerm patch in place. Continue on Keppra. bias machine operator helper is at the bedside. The patient is seen today 10/16/2023 in follow-up on the regular medical floor. She was transferred out of the intensive care unit yesterday. She is currently sitting up in bed. Awake and alert. Oriented 3. Maintaining good O2 saturations in the 90s on room air. She's afebrile. Hemodynamically stable. Urine culture revealed no growth. White count 7.3. Hemoglobin 11.7. Platelets 246. Sodium 142. Potassium 3.2. Bicarb 26. BUN 13. Creatinine 1.1. AST 92. ALT 100. NicoDerm patch in place. Lovenox for DVT prophylaxis. She remains o n Keppra. No seizure activity in the last 24 hours. The patient is seen today 10/17/2023 in follow-up on the regular medical floor. She is currently sitting up in bed. Awake and alert in no acute distress. Oriented 3. Stable and on room air. No seizure activity. She did develop a right fourth digit paronychia and the plan is for incision and drainage by orthopedics today. She was initiated on doxycycline. She was also having some paresthesia and pain in the left shoulder. X-rays revealed no acute osseous abnormality. Cervical spine revealed straightening of normal cervical lordosis could be positional or due to muscle spasm. No prevertebral soft tissue swelling or malalignment. MRI of the brain revealed no evidence of intracranial mass, acute/subacute infarct, or abnormal enhancement. Her follow-up EEG was within normal limits. No seizure activity. No focal slowing. The patient is seen today 10/18/2023 follow-up on the regular medical floor. She is currently resting comfortably in bed. Awake and alert in no acute distress. Maintaining good O2 saturations in the 90s on room air. bias machine operator helper is at the bedside. She did undergo incision and drainage of her right ring finger abscess. She remains on doxycycline. Urine culture revealed no growth. Some 3.4. Magnesium 2.0. Influenza screen negative. RSV screen negative. COVID-19 screen negative. Objective - Vital Signs Vital signs: Vital Signs Temp 97.8 F 10/18/23 14:08 Pulse 94 10/18/23 14:08 Resp 18 10/18/23 14:08 BP 146/73 10/18/23 14:08 Pulse Ox 97 10/18/23 14:08 FiO2 2 10/14/23 15:00 Intake & Output 10/17/23 10/18/23 10/18/23 18:59 06:59 18:59 Weight 100.499 kg Other: Voiding Method Toilet Toilet Toilet # Voids 3 ABP, PAP, CO, CI - Last Documented Arterial Blood Pressure 127/88 - Exam GENERAL EXAM: Alert, oriented, cooperative 23-year-old female, on room air, comfortable in no apparent distress. HEAD: Normocephalic. EYES: Normal reaction of pupils, equal size. NOSE: Clear with pink turbinates. THROAT: No erythema or exudates. NECK: No masses, no JVD. CHEST: No chest wall deformity. LUNGS: Equal air entry with no crackles, wheeze, rhonchi or dullness. CVS: S1 and S2 normal with no audible murmur, regular rhythm. ABDOMEN: No hepatosplenomegaly, normal bowel sounds, no guarding or rigidity. SPINE: No scoliosis or deformity SKIN: No rashes CENTRAL NERVOUS SYSTEM: No focal deficits, tone is normal in all 4 extremities. EXTREMITIES: Right fourth digit paronychia. There is no peripheral edema. No clubbing, no cyanosis. Peripheral pulses are intact. - Labs CBC & Chem 7: 10/16/23 05:57 10/18/23 05:30 Labs: Abnormal Lab Results - Last 24 Hours (Table) 10/18/23 Range/Units 05:30 Potassium 3.4 L (3.5-5.5) mmol/L Assessment and Plan Assessment: Acute hypoxic respiratory failure secondary to drug overdose, multiple drugs, mostly with excessive anticholinergic symptoms, requiring intubation and mechanical ventilation, patient was extubated on 10/13/2023. Recovered and on room air Suicidal ideation and suicide attempt, the plan is for inpatient psychiatric unit History of bipolar disorder and depression Acute rhabdomyolysis, improving Acute seizure disorder secondary to multiple drugs overdose and remains on Keppra. Follow-up EEG revealed no seizure activity. No focal slowing. Acute kidney injury secondary to ATN and rhabdomyolysis, recovered Acute transaminitis secondary to above, improving Acute metabolic acidosis secondary to kidney injury and secondary to seizures, resolved Hypovolemic hypernatremia, resolved Right hand fourth digit with paronychia, and is for incision and drainage per orthopedics Plan: The patient was seen and evaluated Labs and medications reviewed Currently stable and on room air bias machine operator helper in attendance Stable from the pulmonary and critical care standpoint Plan is for inpatient psychiatric unit This patient was seen independently by the nurse practitioner I have personally seen and examined the patient, performed the documentation and the assessment and plan as written. Number of minutes spent on the visit: 23.
--- NOTE | 2023-10-18 14:41 | P.PN ---
Subjective Patient is seen for follow-up for acute kidney injury, ATN currently nonoliguric. She was admitted with a suicide attempt with overdose on Benadryl and Lamictal. Patient has been extubated and transferred out of the ICU. Renal function has improved significantly. Serum creatinine Is down to 1.1 mg/dL. Potassium 3.4 today. Good urine output. Objective - Vital Signs Vital signs: Vital Signs Temp 97.8 F 10/18/23 14:08 Pulse 94 10/18/23 14:08 Resp 18 10/18/23 14:08 BP 146/73 10/18/23 14:08 Pulse Ox 97 10/18/23 14:08 FiO2 2 10/14/23 15:00 Intake & Output 10/17/23 10/18/23 10/18/23 18:59 06:59 18:59 Weight 100.499 kg Other: Voiding Method Toilet Toilet Toilet # Voids 3 ABP, PAP, CO, CI - Last Documented Arterial Blood Pressure 127/88 - Exam Patient is awake, alert oriented 3 She is comfortable. No acute distress No edema noted. DOBIE MAN exam grossly intact - Labs CBC & Chem 7: 10/16/23 05:57 10/18/23 05:30 Labs: Abnormal Lab Results - Last 24 Hours (Table) 10/18/23 Range/Units 05:30 Potassium 3.4 L (3.5-5.5) mmol/L Assessment and Plan Assessment: 1. Acute kidney injury secondary to ATN. Patient has rhabdomyolysis. [place] [address] and has decreased to 6316. [place] level not high. Renal function is improving.. Status post IV fluids. Baseline creatinine 0.8-0.9. 2. Suicide attempt. She took multiple medications including Benadryl and Lamictal. 3. Seizures. 4. Metabolic acidosis secondary to acute kidney injury, IV fluids. Can also be from lactic acidosis from seizures. Resolved. 5. Bipolar disorder. 6. Hypernatremia from lack oral water intake. Patient not polyuric. Status post D5W . Improved. Plan: Continue to encourage increased oral intake. Replace potassium. I will repeat another dose of 40 mEq of potassium chloride.
[2023-10-18 16:25] LABS: Creatine Kinase 474 U/L (26-186)
[2023-10-18 17:48] LABS: ALT 78 U/L (8-44); AST 43 U/L (13-35); Albumin 3.5 g/dL (3.8-4.9); Alkaline Phosphatase 80 U/L (41-126); Blood Urea Nitrogen 13.1 mg/dL (9.0-27.0); Calcium 9.4 mg/dL (8.7-10.3); Carbon Dioxide 24.2 mmol/L (21.6-31.8); Chloride 102 mmol/L (96-109); Globulin 2.5 g/dL (1.6-3.3); Glucose 97 mg/dL (70-110); Potassium 3.4 mmol/L (3.5-5.5); Sodium 142 mmol/L (135-145); Total Bilirubin 0.3 mg/dL (0.3-1.2)
== END 2023-10-18 22:14 | DRG 817 ==
LOC: EC 18:16 → 4SSUR 10-10 17:56 → 5NMEDONC 10-10 21:56 → 3SCARD 10-11 01:08 → 2SICU 10-11 16:34 → 5NMEDONC 10-15 11:50
PROVIDERS: ADMIT Hospitalist; ATTEND Hospitalist
PROC: 0BH18EZ Insertion of Endotracheal Airway into Trachea, Via Natural or Artificial Opening Endoscopic (ICD-10-PCS; 2023-10-11)
PROC: 5A1945Z Respiratory Ventilation, 24-96 Consecutive Hours (ICD-10-PCS; 2023-10-11)
PROC: 03HY32Z Insertion of Monitoring Device into Upper Artery, Percutaneous Approach (ICD-10-PCS; 2023-10-12)
PROC: 4A133B1 Monitoring of Arterial Pressure, Peripheral, Percutaneous Approach (ICD-10-PCS; 2023-10-12)
PROC: 4A133J1 Monitoring of Arterial Pulse, Peripheral, Percutaneous Approach (ICD-10-PCS; 2023-10-12)
PROC: 0H9FXZZ Drainage of Right Hand Skin, External Approach (ICD-10-PCS; principal; 2023-10-17)
DX: T45.0X2A Poisoning by antiallergic and antiemetic drugs, intentional self-harm, initial encounter (principal); N17.0 Acute kidney failure with tubular necrosis; J96.01 Acute respiratory failure with hypoxia; G92.8 Other toxic encephalopathy; E87.0 Hyperosmolality and hypernatremia; M62.82 Rhabdomyolysis; G25.3 Myoclonus; F31.9 Bipolar disorder, unspecified; T39.8X2A Poisoning by other nonopioid analgesics and antipyretics, not elsewhere classified, intentional self-harm, initial encounter; T42.6X2A Poisoning by other antiepileptic and sedative-hypnotic drugs, intentional self-harm, initial encounter; F60.3 Borderline personality disorder; F17.210 Nicotine dependence, cigarettes, uncomplicated; H55.09 Other forms of nystagmus; F51.5 Nightmare disorder; L03.011 Cellulitis of right finger; E86.1 Hypovolemia; E87.6 Hypokalemia; K21.9 Gastro-esophageal reflux disease without esophagitis; M62.838 Other muscle spasm; L02.511 Cutaneous abscess of right hand; Z86.59 Personal history of other mental and behavioral disorders; Z91.51 Personal history of suicidal behavior; Z65.3 Problems related to other legal circumstances; Z11.52 Encounter for screening for COVID-19; Z88.0 Allergy status to penicillin; Z79.899 Other long term (current) drug therapy; Z87.820 Personal history of traumatic brain injury
CPT/HCPCS: 36415; 36600; 70450; 70553; 71045; 72040; 76770; 80048; 80053; 80143; 80156; 80164; 80175; 80177; 80178; 80179; 80185; 80306; 80320; 81001; 81025; 82075; 82140; 82550; 82805; 83690; 83735; 83880; 84100; 84132; 84145; 84295; 84443; 84484; 85025; 85027; 85610; 85730; 87086; 87635; 87636; 93005; 94002; 94003; 94660; 95816; 95822; 96361; 96365; 96368; 96375; 96376; 99291

== ENCOUNTER 2023-10-18 15:16 | Inpatient (IN) | payer MEDICAID, OTHER ==
[2023-10-18] MEDS ORDERED: IBUPROFEN 600 MG TAB PO PRN (18:30)
[2023-10-18] MEDS ORDERED: MAGNESIUM HYDROXIDE 2,400 MG/30 ML CUP PO PRN (18:30)
[2023-10-18] MEDS ORDERED: MAG HYDROX/AL HYDROX/SIMETH 30 ML CUP PO PRN (18:30)
[2023-10-18] MEDS ORDERED: bisacodyL 10 MG SUPP RECTAL PRN (18:34)
[2023-10-18] MEDS ORDERED: BENZONATATE 100 MG CAP PO PRN (18:34)
[2023-10-18] MEDS ORDERED: HALOPERIDOL LACTATE 5 MG/ML 1 ML VIAL IM PRN (18:43)
[2023-10-18] MEDS ORDERED: haloperidoL 5 MG TAB PO PRN (18:43)
[2023-10-18] MEDS ORDERED: traZODone HCL 50 MG TAB PO PRN (18:43)
[2023-10-18] MEDS ORDERED: LORazepam 2 MG/ML INJ IM PRN (18:43)
[2023-10-18] MEDS: DOXYCYCLINE 100 MG CAP PO SCH (22:14)
[2023-10-18] MEDS: levETIRAcetam 500 MG TAB PO SCH (22:15)
[2023-10-18] MEDS: MAGNESIUM OXIDE 400 MG TAB PO SCH (22:15)
[2023-10-19] MEDS: LORazepam 1 MG TAB PO PRN (00:32)
[2023-10-19] MEDS: amLODIPine 5 MG TAB PO SCH (09:54)
[2023-10-19] MEDS: PANTOPRAZOLE 40 MG TABLET PO SCH (09:54)
[2023-10-19] MEDS: DOXYCYCLINE 100 MG CAP PO SCH ×2 (09:54→20:32)
[2023-10-19] MEDS: MAGNESIUM OXIDE 400 MG TAB PO SCH ×3 (09:54→20:31)
[2023-10-19] MEDS: POTASSIUM CHLORIDE ER 20 MEQ TAB.ER PO SCH (09:54)
[2023-10-19] MEDS: levETIRAcetam 500 MG TAB PO SCH ×2 (09:54→20:31)
[2023-10-19] MEDS: NICOTINE 14MG/24HR PATCH TRANSDERM SCH (09:56)
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
[2023-10-19 12:11] LABS: Basophils % (A) 0 %; Eosinophils # (A) 0.2 k/uL (0-0.7); Eosinophils % (A) 3 %; HCT 42.2 % (34.0-46.0); Lymphocytes # (A) 1.7 k/uL (1.0-4.8); Lymphocytes % (A) 24 %; MCH 27.4 pg (25.0-35.0); MCHC 33.5 g/dL (31.0-37.0); MCV 81.8 fL (80.0-100.0); Mean Platelet Volume 7.5; Monocytes # (A) 0.4 k/uL (0-1.0); Monocytes % (A) 5 %; Neutrophils # (A) 4.9 k/uL (1.3-7.7); Neutrophils % (A) 67 %; Platelet Count 388 k/uL (150-450); RBC 5.15 m/uL (3.80-5.40); RDW 14.3 % (11.5-15.5); WBC 7.4 k/uL (3.8-10.6)
[2023-10-19 12:28] LABS: HGB 14.1 gm/dL (11.4-16.0)
[2023-10-19 12:38] VITALS: BMI 39.2
[2023-10-19 13:12] LABS: ALT 92 U/L (4-34); AST 56 U/L (14-36); African American GFR (CKD) 88 (>60 ml/min/1.73 sqM); Albumin 4.2 g/dL (3.5-5.0); Alkaline Phosphatase 92 U/L (38-126); Anion Gap 12 mmol/L; Blood Urea Nitrogen 16 mg/dL (7-17); Calcium 9.6 mg/dL (8.4-10.2); Carbon Dioxide 27 mmol/L (22-30); Chloride 100 mmol/L (98-107); Glucose 104 mg/dL (74-99); Non-African American GFR(CKD) 76 (>60 ml/min/1.73 sqM); Potassium 4.3 mmol/L (3.5-5.1); Sodium 139 mmol/L (137-145); Total Bilirubin 0.5 mg/dL (0.2-1.3); Total Protein 7.4 g/dL (6.3-8.2)
[2023-10-19] MEDS: SERTRALINE 25 MG TAB PO SCH (14:36)
[2023-10-19] MEDS ORDERED: LURASIDONE 20 MG TAB PO SCH (18:00)
[2023-10-19] MEDS: MELATONIN 3 MG TABLET PO SCH (20:31)
--- NOTE | 2023-10-20 00:44 | P.CONS ---
History of Present Illness - Reason for Consult Consult date: 10/20/23 - History of Present Illness The patient is a 23-year-old female with a PMH of bipolar disorder, hypertension, and seizure disorder who had initially presented to the emergency room on 10/10 after an intentional overdose secondary to multiple medications. The patient was admitted to the medical ICU and was subsequently transferred to the mental health unit on 10/18. The patient reports feeling well at the time of interview and had no active complaints. She reports smoking 2 packs of cigarettes daily as well as recreational cocaine use and occasional alcohol use. Denies extremity chest discomfort, shortness of breath, fever, chills, cough, nausea, vomiting, abdominal pain, diarrhea. Review of systems: Pertinent positives and negatives as discussed in HPI, a complete review of systems was performed and all other systems are negative. Physical examination: General: non toxic, no distress, appears at stated age, obese Derm: no unusual rashes/lesions, no unusual ecchymoses, warm, dry Head: atraumatic, normocephalic, symmetric Eyes: EOMI, no lid lag, anicteric sclera ENT: Nose and ears atraumatic, no thrush, no pharyngeal erythema Neck: trachea midline, supple Mouth: no lip lesion, mucus membranes moist Cardiovascular: S1S2 reg, no murmur, no edema Lungs: CTA bilateral, no rhonchi, no rales , no accessory muscle use Abdominal: soft, nontender to palpation, no guarding Ext: no gross muscle atrophy, no contractures, Neuro: No gross focal neuro deficits noted Psych: Alert, oriented, appropriate affect Assessment: Rhabdomyolysis, now resolved JOCELYN, now resolved Chronic conditions: Hypertension, seizure disorder Bipolar disorder and intentional overdose with suicidal ideation Plan: The patient's home medications currently being reevaluated by psychiatry Continue with patient's other home medications including Norvasc and Keppra Thank you for allowing us to participate in the care of this patient. We will follow peripherally. Do not hesitate to contact us with questions. Someone can be reached from the [facility] hospitalist group at all hours of the day at [phone]. Past Medical History Past Medical History: GERD/Reflux, Hypertension, Skin Disorder Additional Past Medical History / Comment(s): Irritable bowel syndrome, previous Tylenol overdose with acute liver damage, over dose x2. [place], pnumonia, strep, toncillectomy, migranes, bulimia History of Any Multi-Drug Resistant Organisms: None Reported Past Surgical History: Adenoidectomy, Tonsillectomy Additional Past Surgical History / Comment(s): wisdom teeth removal Past Anesthesia/Blood Transfusion Reactions: No Reported Reaction Smoking Status: Former smoker - Past Family History Father Family Medical History: Diabetes Mellitus, Hypertension Additional Family Medical History / Comment(s): Father is alive with history of diabetes Mother Family Medical History: Hypertension, Thyroid Disorder Additional Family Medical History / Comment(s): Mother is alive with a history of diabetes, hypothyroidism, myocardial infarction, stroke Sister(s) Additional Family Medical History / Comment(s): Patient has 3 sisters with no major medical problems. Patient does not have any brothers. Medications and Allergies Home Medications Medication Instructions Recorded Confirmed Type Ibuprofen [Motrin] 800 mg PO Q8H PRN 10/09/23 10/09/23 History [place] Carbonate [[place] 300 mg PO BID 10/09/23 10/09/23 History Carbonate ER] Omeprazole [PriLOSEC] 20 mg PO DAILY 10/09/23 10/09/23 History SUMAtriptan succinate 100 mg PO BID PRN 10/09/23 10/09/23 History busPIRone HCl [Buspar] 5 mg PO BID 10/09/23 10/09/23 History diphenhydrAMINE [Benadryl] 25 mg PO QID PRN 10/09/23 10/09/23 History lamoTRIgine [lamoTRIgine ER] 300 mg PO DAILY 10/09/23 10/09/23 History Benzonatate [Tessalon Perles] 100 mg PO TID PRN cap 10/18/23 Rx Doxycycline [Vibramycin] 100 mg PO BID 6 Days #12 cap 10/18/23 Rx Magnesium Oxide [Mag-Ox] 400 mg PO TID 5 Days #15 tab 10/18/23 Rx Nicotine 14Mg/24Hr Patch [Habitrol] 1 patch TRANSDERM DAILY patch 10/18/23 Rx amLODIPine [Norvasc] 5 mg PO DAILY tab 10/18/23 Rx bisacodyL [Dulcolax] 10 mg RECTAL DAILY PRN suppositor 10/18/23 Rx levETIRAcetam [Keppra] 500 mg PO Q12HR tab 10/18/23 Rx Allergies Allergy/AdvReac Type Severity Reaction Status Date / Time amoxicillin Allergy Anaphylaxis Verified 10/19/23 01:39 Penicillins Allergy Anaphylaxis Verified 10/19/23 01:39 acetaminophen [From Tylenol] AdvReac Nausea & Verified 10/19/23 01:39 Vomiting Physical Exam Vitals: Intake and Output 10/19/23 10/19/23 10/20/23 14:59 22:59 06:59 Other: Weight 100.6 kg Results CBC & Chem 7: 10/19/23 11:55 10/19/23 11:55 Labs: Abnormal Lab Results - Last 24 Hours (Table) 10/19/23 Range/Units 11:55 Glucose 104 H (74-99) mg/dL AST 56 H (14-36) U/L ALT 92 H (4-34) U/L
[2023-10-20] MEDS: NICOTINE 14MG/24HR PATCH TRANSDERM SCH (08:58)
[2023-10-20] MEDS: POTASSIUM CHLORIDE ER 20 MEQ TAB.ER PO SCH (08:58)
[2023-10-20] MEDS: amLODIPine 5 MG TAB PO SCH (08:58)
[2023-10-20] MEDS: MAGNESIUM OXIDE 400 MG TAB PO SCH ×3 (08:58→19:56)
[2023-10-20] MEDS: SERTRALINE 25 MG TAB PO SCH (08:58)
[2023-10-20] MEDS: PANTOPRAZOLE 40 MG TABLET PO SCH (08:58)
[2023-10-20] MEDS: DOXYCYCLINE 100 MG CAP PO SCH ×2 (08:59→19:55)
[2023-10-20] MEDS: levETIRAcetam 500 MG TAB PO SCH ×2 (08:59→19:55)
--- NOTE | 2023-10-20 13:47 | P.PN ---
Subjective Progress Note Date: 10/20/23 Principal diagnosis: Suicide attempt by overdose of medications Bipolar disorder depressed episode borderline personality disorder PTSD cannabis use disorder nicotine dependence IDENTIFYING DATA: This patient is a 23-year-old female currently lives alone in an apartment, collects SSI HISTORY OF PRESENT ILLNESS: The patient presented to the hospital on 10/10, via EMS. As per ED note "23-year-old female presents to the ED with a chief complaint of psychiatric problem. Patient states last night anywhere from approximately 8 PM to 10 PM took all of her pills in attempt to kill herself. Patient ingested an unknown amount of much of Lamotrigine 100 mg, buspirone and diphenhydramine 25 mg, sumatriptan 100 mg, lithium 300 mg, and apoquel. PAST PSYCHIATRIC HISTORY: Patient has a a history of bipolar disorder and borderline personality disorder. Patient is currently on lithium, BuSpar, Lamictal. Patient was last admitted to mental health unit in this hospital in April 2017. Father claims that patient was admitted to [facility] about 3 years ago. She claims that she follows up with Dr. Carrillo is her psychiatrist at [facility]. Patient has had 3 suicide attempts in the past. SOCIAL HISTORY: Patient was born and raised in [facility]. Claims that he completed high school. States that she is collecting Social Sec urity. Currently lives alone in an apartment. Does have a legal history. MENTAL STATUS EXAM: General Appearance: Patient mildly overweight, appears to be stated age is alert, cooperative. Good self-care today good eye contact reasonable response times without being pressured Behavior: Patient is seated without agitation. Speech: Patient's speech is fluent, nonpressured Mood/Affect: Patient reports their mood is "depressed and anxious", affect is congruent and labile. Suicidality/Homicidality: Patient denies having any suicidal or homicidal ideation intent or plan. Perceptions: Patient denies any visual hallucinations and denies any auditory hallucinations Though content/process: She is not rambling understands ideas is socially appropriate Memory and concentration: AOX3, grossly intact for the purposes of this session. Judgment and insight: Formal judgment seems intact IMPRESSIONS: Suicide attempt by overdose of medications Bipolar disorder depressed episode borderline personality disorder PTSD cannabis use disorder nicotine dependence Assessment: I think the patient has low dopamine. She takes saying that stabilize her moods but even when she is stable she feels empty and blocked. Of course it doesn't help that she smoked pot all the time for quite a while. She says she tried Wellbutrin in the past and got more depressed. Wellbutrin is stimulating and she was ruminating on suicide he could increase the ruminations. She is tolerating the look to it I think we should bump it up and if we can get her moods real stable we at that point probably after discharge should consider adding in Wellbutrin gradually for motivation and drive and focus PLAN: -Patient is admitted under voluntary status to MHU for stabilization of psychiatric symptoms and safety. Patient has signed adult voluntary form and medication consent and is placed in patient's chart. -Medications : Will increase alluded to the to 40 mg daily with dinner, for mood stabilization/depression Zoloft 25mg daily for mood/anxiety melatonin 6mg qhs for sleep -Ativan and Haldol PRN for agitation/aggression -Patient was informed of the risks, benefits and side effects of the medication and patient verbally consented to taking the medications. Patient signed med consent form and was placed in chart. -Internal Medicine consult to perform medical evaluation and physical. -NRT - nicotine patch -SW on board for discharge planning. Encourage patient to participate in groups to work on coping skills.R Objective - Vital Signs Vital signs: Vital Signs Temp 97.8 F 10/18/23 23:13 Pulse 106 H 10/18/23 23:13 Resp 18 10/18/23 23:13 BP 157/88 10/18/23 23:13 Pulse Ox 97 10/18/23 23:13 FiO2 Intake & Output 10/19/23 10/20/23 10/20/23 18:59 06:59 18:59 Weight 100.6 kg - Labs CBC & Chem 7: 10/19/23 11:55 10/19/23 11:55 Labs: Abnormal Lab Results - Last 24 Hours (Table) 10/19/23 Range/Units 11:55 Glucose 104 H (74-99) mg/dL AST 56 H (14-36) U/L ALT 92 H (4-34) U/L
[2023-10-20] MEDS: MELATONIN 3 MG TABLET PO SCH (19:55)
[2023-10-20] MEDS: LURASIDONE 40 MG TAB PO SCH (19:55)
[2023-10-20] MEDS: LORazepam 1 MG TAB PO PRN (20:33)
--- NOTE | 2023-10-21 08:54 | P.PN ---
Subjective Progress Note Date: 10/21/23 Principal diagnosis: Suicide attempt by overdose of medications Bipolar disorder depressed episode borderline personality disorder PTSD cannabis use disorder nicotine dependence IDENTIFYING DATA: This patient is a 23-year-old female currently lives alone in an apartment, collects SSI MENTAL STATUS EXAM: The patient is pleasant and positive saying she feels more alert in overall more stable on fewer medicines and on Latuda. Of course the worries that she could be going manic but she slept really well, at least a full 8 hours, so it's unlikely this is radhames. General Appearance: Patient mildly overweight, appears to be stated age is alert, cooperative. Good self-care today good eye contact reasonable response times without being pressured Behavior: Patient is seated without agitation. Speech: Patient's speech is fluent, nonpressured Mood/Affect: Patient reports their mood is hopeful. She says this is the best I felt in years", affect is congruent and stable Suicidality/Homicidality: Patient denies having any suicidal or homicidal ideation intent or plan. Perceptions: Patient denies any visual hallucinations and denies any auditory hallucinations Though content/process: She is not rambling, understands ideas, is socially appropriate Memory and concentration: AOX3, grossly intact for the purposes of this session. Judgment and insight: Formal judgment seems intact IMPRESSIONS: Suicide attempt by overdose of medications Bipolar disorder depressed episode borderline personality disorder PTSD cannabis use disorder nicotine dependence Assessment: I think the Latuda is working well and so we will leave it at 40 she slept well and does not seem at all manic we discussed at length what exactly borderline personality means and how DBT is helpful and that she needs to work that as well as take medications for the bipolar PLAN: -Patient is admitted under voluntary status to MHU for stabilization of psychi atric symptoms and safety. Patient has signed adult voluntary form and medication consent and is placed in patient's chart. -Medications : Will increase Latuda to 40 mg daily with dinner, for mood st abilization/depression Zoloft 25mg daily for mood/anxiety melatonin 6mg qhs for sleep -Ativan and Haldol PRN for agitation/aggression -Patient was informed of the risks, benefits and side effects of the medication and patient verbally consented to taking the medications. Patient signed med consent form and was placed in chart. -Internal Medicine consult to perform medical evaluation and physical. -NRT - nicotine patch -SW on board for discharge planning. Encourage patient to participate in groups to work on coping skills.R okay so we bumped up the look to Objective - Vital Signs Vital signs: Vital Signs Temp 96.8 F L 10/20/23 08:56 Pulse 100 10/20/23 08:56 Resp 20 10/20/23 08:56 BP 137/91 10/20/23 08:56 Pulse Ox 97 10/18/23 23:13 FiO2 - Labs CBC & Chem 7: 10/19/23 11:55 10/19/23 11:55
[2023-10-21] MEDS: PANTOPRAZOLE 40 MG TABLET PO SCH (09:09)
[2023-10-21] MEDS: SERTRALINE 25 MG TAB PO SCH (09:09)
[2023-10-21] MEDS: levETIRAcetam 500 MG TAB PO SCH ×2 (09:09→20:39)
[2023-10-21] MEDS: amLODIPine 5 MG TAB PO SCH (09:09)
[2023-10-21] MEDS: DOXYCYCLINE 100 MG CAP PO SCH ×2 (09:09→20:39)
[2023-10-21] MEDS: MAGNESIUM OXIDE 400 MG TAB PO SCH ×3 (09:09→20:39)
[2023-10-21] MEDS: NICOTINE 14MG/24HR PATCH TRANSDERM SCH (09:10)
[2023-10-21] MEDS: ONDANSETRON 4 MG TAB PO PRN (10:08)
--- NOTE | 2023-10-21 11:40 | P.PN ---
Progress Note - Text Progress Note Date: 10/21/23 - History of Present Illness The patient is a 23-year-old female with a PMH of bipolar disorder, hypertension, and seizure disorder who had initially presented to the emergency room on 10/10 after an intentional overdose secondary to multiple medications. The patient was admitted to the medical ICU and was subsequently transferred to the mental health unit on 10/18. The patient reports feeling well at the time of interview and had no active complaints. She reports smoking 2 packs of cigarettes daily as well as recreational cocaine use and occasional alcohol use. Denies extremity chest discomfort, shortness of breath, fever, chills, cough, nausea, vomiting, abdominal pain, diarrhea. 10/21/2023: Patient feels well. Slept well. Adequate breakfast. Has been admitting. Rather cheerful. Had a bowel movement. Past Medical History Past Medical History: GERD/Reflux, Hypertension, Skin Disorder Additional Past Medical History / Comment(s): Irritable bowel syndrome, previous Tylenol overdose with acute liver damage, over dose x2. [place], pnumonia, strep, toncillectomy, migranes, bulimia History of Any Multi-Drug Resistant Organisms: None Reported Past Surgical History: Adenoidectomy, Tonsillectomy Additional Past Surgical History / Comment(s): wisdom teeth removal Past Anesthesia/Blood Transfusion Reactions: No Reported Reaction Smoking Status: Former smoker - Past Family History Father Family Medical History: Diabetes Mellitus, Hypertension Additional Family Medical History / Comment(s): Father is alive with history of diabetes Mother Family Medical History: Hypertension, Thyroid Disorder Additional Family Medical History / Comment(s): Mother is alive with a history of diabetes, hypothyroidism, myocardial infarction, stroke Sister(s) Additional Family Medical History / Comment(s): Patient has 3 sisters with no major medical problems. Patient does not have any brothers. Active Medications Al Hydroxide/Mg Hydroxide (Mag Hydrox/Al Hydrox/Simeth 30 Ml Cup) 30 ml PO Q4HR PRN PRN Reason: GI Upset Amlodipine Besylate (Amlodipine 5 Mg Tab) 5 mg PO DAILY CAMILO Last Admin: 10/21/23 09:09 Dose: 5 mg Benzonatate (Benzonatate 100 Mg Cap) 100 mg PO TID PRN PRN Reason: Cough Bisacodyl (Bisacodyl 10 Mg Supp) 10 mg RECTAL DAILY PRN PRN Reason: Constipation Doxycycline Monohydrate (Doxycycline 100 Mg Cap) 100 mg PO BID [facility]; Protocol Stop: 10/23/23 21:01 Last Admin: 10/21/23 09:09 Dose: 100 mg Haloperidol (Haloperidol 5 Mg Tab) 5 mg PO Q6H PRN PRN Reason: Agitation or Acute Psychosis Haloperidol Lactate (Haloperidol Lactate 5 Mg/Ml 1 Ml Vial) 5 mg IM Q6HR PRN PRN Reason: Agitation or Acute Psychosis Ibuprofen (Ibuprofen 600 Mg Tab) 600 mg PO Q6HR PRN PRN Reason: Moderate Pain (Scale 4 to 6) Levetiracetam (Levetiracetam 500 Mg Tab) 500 mg PO Q12HR [facility] Last Admin: 10/21/23 09:09 Dose: 500 mg Lorazepam (Lorazepam 2 Mg/Ml Inj) 1 mg IM Q6HR PRN PRN Reason: Agitation or Acute Anxiety Lorazepam (Lorazepam 1 Mg Tab) 1 mg PO Q6H PRN PRN Reason: Agitation or Acute Anxiety Last Admin: 10/20/23 20:33 Dose: 1 mg Lurasidone HCl (Lurasidone 40 Mg Tab) 40 mg PO [facility] Last Admin: 10/20/23 19:55 Dose: 40 mg Magnesium Hydroxide (Magnesium Hydroxide 2,400 Mg/30 Ml Cup) 2,400 mg PO DAILY PRN PRN Reason: Constipation Magnesium Oxide (Magnesium Oxide 400 Mg Tab) 400 mg PO TID [facility] Last Admin: 10/21/23 09:09 Dose: 400 mg Melatonin (Melatonin 3 Mg Tablet) 6 mg PO [facility] Last Admin: 10/20/23 19:55 Dose: 6 mg Nicotine (Nicotine 14mg/24hr Patch) 1 patch TRANSDERM DAILY [facility] Last Admin: 10/21/23 09:10 Dose: Not Given Ondansetron HCl (Ondansetron 4 Mg Tab) 4 mg PO Q8HR PRN PRN Reason: Nausea And Vomiting Last Admin: 10/21/23 10:08 Dose: 4 mg Pantoprazole Sodium (Pantoprazole 40 Mg Tablet) 40 mg PO DAILY [facility] Last Admin: 10/21/23 09:09 Dose: 40 mg Sertraline HCl (Sertraline 25 Mg Tab) 25 mg PO DAILY [facility] Last Admin: 10/21/23 09:09 Dose: 25 mg On examination: VITAL SIGNS: [96.8, 100, 20, 137/91, 97%] GENERAL APPEARANCE: Sitting up in bed, comfortable . Tattoos HEENT: Normal external appearance of nose and ear. Oral cavity normal EYES: Pupils equal. Conjunctiva normal. NECK: JVD not raised. Mass not palpable. RESPIRATORY: Respiratory effort normal. Lungs clear to auscultation. CARDIOVASCULAR: First and second sounds normal. No edema. ABDOMEN: Soft. Liver and spleen not palpable. No tenderness. No mass palpable. PSYCHIATRY: Alert and oriented x3. Mood and affect rather cheerful INVESTIGATIONS, reviewed in the clinical context: 10/19/2023: White count 7.4 hemoglobin 14.1 platelets 388 potassium 4.3 creatinine 1.03 TSH 1.2 Assessment and plan: -Drug overdose mostly due to Benadryl and sumatriptan lithium and lamictal; patients levels were normal. Lamictal level came back elevated at 36.7. Patient had anticholinergic side effects having myoclonus and concern for seizure like activity patient was intubated and was extubated. Patient currently on keppra . Neurologist recommended to taper it off as an outpatient -Acute hypoxic respiratory failure from the overdose requiring Mechanical ventilator monitoring clinically patient has improved patient was extubated on 10/13/23 and currently on room air with no respiratory symptoms -Suicidal ideation and suicide attempt: Being followed by psychiatry -Horizontal nystagmus secondary to anticholinergic side effects, supportive care continue with the Valium. Resolved -Acute rhabdomyolysis secondary to JOCELYN/Myoclonus with elevated creatine kinase , improved -Acute kidney injury secondary to acute tubular necrosis and the rhabdomyolysis : Better. -Bipolar disorder and depression-follow with psychiatry -Chronic nicotine dependence. Cigarette smoker. Nicotine patch. -Paronychia: Finger abscess on the tip of the right hand ring finger. doxycycline due to medication allergies to penicillin and she is status post I and D with orthopedics. -Essential hypertension. Amlodipine. Discussed with patient. Continue current medications. Increase activity as tolerated.
[2023-10-21] MEDS: LURASIDONE 40 MG TAB PO SCH (20:39)
[2023-10-21] MEDS: MELATONIN 3 MG TABLET PO SCH (20:39)
[2023-10-22] MEDS: SERTRALINE 25 MG TAB PO SCH (08:46)
[2023-10-22] MEDS: levETIRAcetam 500 MG TAB PO SCH ×2 (08:46→20:43)
[2023-10-22] MEDS: PANTOPRAZOLE 40 MG TABLET PO SCH (08:46)
[2023-10-22] MEDS: amLODIPine 5 MG TAB PO SCH (08:46)
[2023-10-22] MEDS: MAGNESIUM OXIDE 400 MG TAB PO SCH ×3 (08:47→20:43)
[2023-10-22] MEDS: DOXYCYCLINE 100 MG CAP PO SCH ×2 (08:47→20:42)
[2023-10-22] MEDS: NICOTINE 14MG/24HR PATCH TRANSDERM SCH (08:49)
--- NOTE | 2023-10-22 10:46 | P.PN ---
Subjective Progress Note Date: 10/22/23 Principal diagnosis: Bipolar disorder depressed episode borderline personality disorder PTSD cannabis use disorder nicotine dependence Patient Name: Jahaira Case Date of : 89 Patient Status: Inpatient Attending Provider: Campos Horn Date: 10/22/23 Subjective Progress Note Date: 10/22/23 IDENTIFYING DATA: This patient is a 23-year-old female currently lives alone in an apartment, collects SSI Subjective data: The patient was seen chart was reviewed and case discussed with nursing staff Patient was quite friendly and cooperative and currently appears in no acute physical distress Patient is quite verbal Patient states that she has a suicidal thoughts all her life and that she does not know why He states that she was not excited about life in general but now she feels much more positive since she'll be staying with her family She says that she is starting to feel much more happier and that she feels that the next she will be better She says that she was currently in her apartment and that being around people will be good for She reports no side effects on her current medications She says that sleep and appetite has been fair MENTAL STATUS EXAM: The patient is pleasant and positive saying she feels more alert General Appearance: Patient mildly overweight, appears to be stated age is alert, cooperative. G good eye contact reasonable response times without being pressured Behavior: Patient is seated without agitation. Speech: Patient's speech is fluent, nonpressured Mood/Affect: Affect is euthymic. affect is congruent and stable Suicidality/Homicidality: Patient denies having any suicidal or homicidal ideation intent or plan. Perceptions: Patient denies any visual hallucinations and denies any auditory hallucinations Though content/process: She is not rambling, understands ideas, is socially appropriate Memory and concentration: AOX3, grossly intact for the purposes of this session. Judgment and insight: Formal judgment seems intact IMPRESSIONS: Suicide attempt by overdose of medications Bipolar disorder depressed episode borderline personality disorder PTSD cannabis use disorder nicotine dependence Assessment: This is a 23-year-old female with long history of mental illness with a diagnoses of bipolar disorder and borderline personality disorder He also has issues with cannabis use disorder and history of PTSD Patient has issues with chronic impulsivity and thoughts of self abusive behavior in the recent past She also uses cannabis which she claims has been helpful in relaxing her and making her feel more in control PLAN: -Patient is admitted under voluntary status to MHU for stabilization of psychiatric symptoms and safety. Patient has signed adult voluntary form and medication consent and is placed in patient's chart. -Medications : Continue Latuda to 40 mg daily with dinner, for mood stabilization/depression Zoloft 25mg daily for mood/anxiety melatonin 6mg qhs for sleep -Ativan and Haldol PRN for agitation/aggression -Patient was informed of the risks, benefits and side effects of the medication and patient verbally consented to taking the medications. Patient signed med consent form and was placed in chart. -Internal Medicine consult to perform medical evaluation and physical. -NRT - nicotine patch -SW on board for discharge planning. Encourage patient to participate in groups to work on coping skills.R okay so we bumped up the look to Patient seems to be feeling much more positive now that she will be going back to live with her family and will have some social support system José Nova M.D. Objective - Vital Signs Vital signs: Vital Signs Temp 98.0 F 10/22/23 06:49 Pulse 109 H 10/22/23 06:49 Resp 18 10/22/23 06:49 BP 134/89 10/22/23 06:49 Pulse Ox 99 10/22/23 06:49 FiO2 - Labs CBC & Chem 7: 10/19/23 11:55 10/19/23 11:55
--- NOTE | 2023-10-22 14:20 | P.PN ---
Progress Note - Text Progress Note Date: 10/22/23 - History of Present Illness The patient is a 23-year-old female with a PMH of bipolar disorder, hypertension, and seizure disorder who had initially presented to the emergency room on 10/10 after an intentional overdose secondary to multiple medications. The patient was admitted to the medical ICU and was subsequently transferred to the mental health unit on 10/18. The patient reports feeling well at the time of interview and had no active complaints. She reports smoking 2 packs of cigarettes daily as well as recreational cocaine use and occasional alcohol use. Denies extremity chest discomfort, shortness of breath, fever, chills, cough, nausea, vomiting, abdominal pain, diarrhea. 10/21/2023: Patient feels well. Slept well. Adequate breakfast. Has been admitting. Rather cheerful. Had a bowel movement. 10/22/2023: Reports to be feeling well. Ate breakfast and lunch. Did ambulate. In good spirits. Past Medical History Past Medical History: GERD/Reflux, Hypertension, Skin Disorder Additional Past Medical History / Comment(s): Irritable bowel syndrome, previous Tylenol overdose with acute liver damage, over dose x2. Dixon, pnumonia, strep, toncillectomy, migranes, bulimia History of Any Multi-Drug Resistant Organisms: None Reported Past Surgical History: Adenoidectomy, Tonsillectomy Additional Past Surgical History / Comment(s): wisdom teeth removal Past Anesthesia/Blood Transfusion Reactions: No Reported Reaction Smoking Status: Former smoker - Past Family History Father Family Medical History: Diabetes Mellitus, Hypertension Additional Family Medical History / Comment(s): Father is alive with history of diabetes Mother Family Medical History: Hypertension, Thyroid Disorder Additional Family Medical History / Comment(s): Mother is alive with a history of diabetes, hypothyroidism, myocardial infarction, stroke Sister(s) Additional Family Medical History / Comment(s): Patient has 3 sisters with no major medical problems. Patient does not have any brothers. Active Medications Al Hydroxide/Mg Hydroxide (Mag Hydrox/Al Hydrox/Simeth 30 Ml Cup) 30 ml PO Q4HR PRN PRN Reason: GI Upset Amlodipine Besylate (Amlodipine 5 Mg Tab) 5 mg PO DAILY CAMILO Last Admin: 10/22/23 08:46 Dose: 5 mg Benzonatate (Benzonatate 100 Mg Cap) 100 mg PO TID PRN PRN Reason: Cough Bisacodyl (Bisacodyl 10 Mg Supp) 10 mg RECTAL DAILY PRN PRN Reason: Constipation Doxycycline Monohydrate (Doxycycline 100 Mg Cap) 100 mg PO BID [facility]; Protocol Stop: 10/23/23 21:01 Last Admin: 10/22/23 08:47 Dose: 100 mg Haloperidol (Haloperidol 5 Mg Tab) 5 mg PO Q6H PRN PRN Reason: Agitation or Acute Psychosis Haloperidol Lactate (Haloperidol Lactate 5 Mg/Ml 1 Ml Vial) 5 mg IM Q6HR PRN PRN Reason: Agitation or Acute Psychosis Ibuprofen (Ibuprofen 600 Mg Tab) 600 mg PO Q6HR PRN PRN Reason: Moderate Pain (Scale 4 to 6) Levetiracetam (Levetiracetam 500 Mg Tab) 500 mg PO Q12HR [facility] Last Admin: 10/22/23 08:46 Dose: 500 mg Lorazepam (Lorazepam 2 Mg/Ml Inj) 1 mg IM Q6HR PRN PRN Reason: Agitation or Acute Anxiety Lorazepam (Lorazepam 1 Mg Tab) 1 mg PO Q6H PRN PRN Reason: Agitation or Acute Anxiety Last Admin: 10/20/23 20:33 Dose: 1 mg Lurasidone HCl (Lurasidone 40 Mg Tab) 40 mg PO [facility] Last Admin: 10/21/23 20:39 Dose: 40 mg Magnesium Hydroxide (Magnesium Hydroxide 2,400 Mg/30 Ml Cup) 2,400 mg PO DAILY PRN PRN Reason: Constipation Magnesium Oxide (Magnesium Oxide 400 Mg Tab) 400 mg PO TID [facility] Last Admin: 10/22/23 08:47 Dose: 400 mg Melatonin (Melatonin 3 Mg Tablet) 6 mg PO HS [facility] Last Admin: 10/21/23 20:39 Dose: 6 mg Nicotine (Nicotine 14mg/24hr Patch) 1 patch TRANSDERM DAILY [facility] Last Admin: 10/22/23 08:49 Dose: Not Given Ondansetron HCl (Ondansetron 4 Mg Tab) 4 mg PO Q8HR PRN PRN Reason: Nausea And Vomiting Last Admin: 10/21/23 10:08 Dose: 4 mg Pantoprazole Sodium (Pantoprazole 40 Mg Tablet) 40 mg PO DAILY [facility] Last Admin: 10/22/23 08:46 Dose: 40 mg Sertraline HCl (Sertraline 25 Mg Tab) 25 mg PO DAILY [facility] Last Admin: 10/22/23 08:46 Dose: 25 mg On examination: VITAL SIGNS: [98, 109, 18, 134/89, 99% room air] GENERAL APPEARANCE: in bed, comfortable . Tattoos HEENT: Normal external appearance of nose and ear. Oral cavity normal EYES: Pupils equal. Conjunctiva normal. NECK: JVD not raised. Mass not palpable. RESPIRATORY: Respiratory effort normal. Lungs clear to auscultation. CARDIOVASCULAR: First and second sounds normal. No edema. ABDOMEN: Soft. Liver and spleen not palpable. No tenderness. No mass palpable. PSYCHIATRY: Alert and oriented x3. Mood and affect -up beat INVESTIGATIONS, reviewed in the clinical context: 10/19/2023: White count 7.4 hemoglobin 14.1 platelets 388 potassium 4.3 creatinine 1.03 TSH 1.2 Assessment and plan: -Drug overdose mostly due to Benadryl and sumatriptan lithium and lamictal; patients levels were normal. Lamictal level came back elevated at 36.7. Patient had anticholinergic side effects having myoclonus and concern for seizure like activity patient was intubated and was extubated. Patient currently on keppra . Neurologist recommended to taper it off as an outpatient -Acute hypoxic respiratory failure from the overdose requiring Mechanical ventilator- extubated on 10/13/23 and currently on room air with no respiratory symptoms -Suicidal ideation and suicide attempt: Being followed by psychiatry -Horizontal nystagmus secondary to anticholinergic side effects, supportive care continue with the Valium. Resolved -Acute rhabdomyolysis secondary to JOCELYN/Myoclonus with elevated creatine kinase , improved -Acute kidney injury secondary to acute tubular necrosis and the rhabdomyolysis : Better. -Bipolar disorder and depression-follow with psychiatry -Chronic nicotine dependence. Cigarette smoker. Nicotine patch. -Paronychia: Finger abscess on the tip of the right hand ring finger. doxycycline due to medication allergies to penicillin and she is status post I and D with orthopedics. -Essential hypertension. Amlodipine. -Obesity BMI 39.3. Outpatient weight loss measures Improving, continue current medication treatment plan
[2023-10-22] MEDS: MELATONIN 3 MG TABLET PO SCH (20:43)
[2023-10-22] MEDS: LURASIDONE 40 MG TAB PO SCH (20:43)
[2023-10-23] MEDS: amLODIPine 5 MG TAB PO SCH (08:28)
[2023-10-23] MEDS: SERTRALINE 25 MG TAB PO SCH (08:28)
[2023-10-23] MEDS: NICOTINE 14MG/24HR PATCH TRANSDERM SCH (08:28)
[2023-10-23] MEDS: PANTOPRAZOLE 40 MG TABLET PO SCH (08:28)
[2023-10-23] MEDS: DOXYCYCLINE 100 MG CAP PO SCH ×2 (08:28→20:52)
[2023-10-23] MEDS: MAGNESIUM OXIDE 400 MG TAB PO SCH ×5 (08:28→21:25)
[2023-10-23] MEDS: levETIRAcetam 500 MG TAB PO SCH ×2 (08:28→20:16)
--- NOTE | 2023-10-23 10:20 | P.PN ---
Subjective Progress Note Date: 10/23/23 Principal diagnosis: Bipolar disorder depressed episode borderline personality disorder PTSD cannabis use disorder nicotine dependence Patient Name: Jahaira Case Date of : 89 Patient Status: Inpatient Attending Provider: Campos Horn Date: 10/23/23 Subjective Progress Note Date: 10/23/23 IDENTIFYING DATA: This patient is a 23-year-old female currently lives alone in an apartment, collects SSI Subjective data: The patient was seen chart was reviewed and case discussed with nursing staff Patient was quite friendly and cooperative and currently appears in no acute physical distress The patient reports that all the doctors has called her'a [place] miracle'that she survived after that overdose She says that she is feeling so much happier and that she feels excited about life in general She states that she is looking forward to going home to her family She denies that she is having any suicidal thoughts or plans She says that she is feeling positive She denies any intention of harming herself or others She said that she slept well MENTAL STATUS EXAM: The patient is pleasant and positive saying she feels more alert , mildly euphoric? General Appearance: Patient mildly overweight, appears to be stated age is alert, cooperative. G good eye contact reasonable response times without being pressured Behavior: Patient is seated without agitation. Speech: Patient's speech is fluent, nonpressured Mood/Affect: Affect is euthymic. affect is congruent and stable Suicidality/Homicidality: Patient denies having any suicidal or homicidal ideation intent or plan. Patient however appears to be somewhat expansive? Perceptions: Patient denies any visual hallucinations and denies any auditory hallucinations Though content/process: She is not rambling, understands ideas, is socially appropriate Memory and concentration: AOX3, grossly intact for the purposes of this session. Judgment and insight: Formal judgment seems intact IMPRESSIONS: Suicide attempt by overdose of medications Bipolar disorder depressed episode borderline personality disorder PTSD cannabis use disorder nicotine dependence Assessment: This is a 23-year-old female with long history of mental illness with a diagnoses of bipolar disorder and borderline personality disorder sHe also has issues with cannabis use disorder and history of PTSD Patient has issues with chronic impulsivity and thoughts of self abusive behavior in the recent past She also uses cannabis which she claims has been helpful in relaxing her and making her feel more in control PLAN: -Patient is admitted under voluntary status to [facility] for stabilization of psychiatric symptoms and safety. Patient has signed adult voluntary form and medication consent and is placed in patient's chart. -Medications : Continue Latuda to 40 mg daily with dinner, for mood stabilization/depression Zoloft 25mg daily for mood/anxiety melatonin 6mg qhs for sleep issues remains on a very small dose although considering her borderline personality and bipolar disorder the antidepressant/SSRI should be kept at a lower dose -Ativan and Haldol PRN for agitation/aggression -Patient was informed of the risks, benefits and side effects of the medication and patient verbally consented to taking the medications. Patient signed med consent form and was placed in chart. -Internal Medicine consult to perform medical evaluation and physical. -NRT - nicotine patch -SW on board for discharge planning. Encourage patient to participate in groups to work on coping skills.R okay so we bumped up the look to Patient seems to be feeling much more positive now that she will be going back to live with her family and will have some social support system Referral to substance use program inpatient/outpatient including [facility] and ROGELIO Nova M.D. Objective - Vital Signs Vital signs: Vital Signs Temp 98.0 F 10/22/23 06:49 Pulse 104 H 10/23/23 08:29 Resp 18 10/22/23 06:49 BP 148/81 10/23/23 08:29 Pulse Ox 99 10/22/23 06:49 FiO2 - Labs CBC & Chem 7: 10/19/23 11:55 10/19/23 11:55
[2023-10-23] MEDS: MELATONIN 3 MG TABLET PO SCH (20:16)
[2023-10-23] MEDS: LURASIDONE 40 MG TAB PO SCH (20:16)
[2023-10-24 07:09] VITALS: TEMP 97.8
[2023-10-24] MEDS: amLODIPine 5 MG TAB PO SCH (08:26)
[2023-10-24] MEDS: levETIRAcetam 500 MG TAB PO SCH (08:26)
[2023-10-24] MEDS: NICOTINE 14MG/24HR PATCH TRANSDERM SCH (08:26)
[2023-10-24] MEDS: PANTOPRAZOLE 40 MG TABLET PO SCH (08:26)
[2023-10-24] MEDS: SERTRALINE 25 MG TAB PO SCH (08:26)
[2023-10-24] MEDS: MAGNESIUM OXIDE 400 MG TAB PO SCH (08:26)
[2023-10-24] MEDS: ONDANSETRON 4 MG TAB PO PRN (08:28)
[2023-10-24 08:49] VITALS: BP 144/89; PULSE 99; RESP 20
--- NOTE | 2023-10-24 10:17 | P.DS ---
Providers Date of admission: 10/18/23 22:02 Attending physician: Campos Horn MD Consults: 10/18/23 18:30 Consult Physician Routine Consulting Provider: Pedro Lundy Consult Reason/Comments: H&P Do you want consulting provider notified?: Yes Primary care physician: Patrica Whitley Karson - Discharge Diagnosis(es) (1) Depression Current Visit: No Status: Acute (2) Borderline personality disorder Current Visit: Yes Status: Resolved Priority: Low (3) Overdose Current Visit: No Status: Acute Hospital Course: After hospitalization patient received a routine physical examination with no acute physical issues were identified at this time that require attention Psychiatric problems included depression dysphoria low self-esteem and confidence impulsivity and self abusive behavior Therapy was focused on providing supportive care improving her coping abilities with a multimodal treatment Patient responded favorably where at the time of discharge patient was not suicidal or homicidal admits were made for appropriate follow-up and the local mental services including DBT and CBT Patient is also recommended for help for her chronic cannabis use and to attend other psychosocial services like AA and NA Patient is also being discharged to her family that will also provide necessary support and supervision in addition She was discharged in stable condition with recommendations to follow-up as directed Patient Condition at Discharge: Good Plan - Discharge Summary Discharge Rx Participant: Yes New Discharge Prescriptions: No Action lamoTRIgine [lamoTRIgine ER] 300 mg PO DAILY busPIRone HCl [Buspar] 5 mg PO BID [place] Carbonate [[place] Carbonate ER] 300 mg PO BID Ibuprofen [Motrin] 800 mg PO Q8H PRN PRN Reason: Pain Or Fever > 100.5 levETIRAcetam [Keppra] 500 mg PO Q12HR tab amLODIPine [Norvasc] 5 mg PO DAILY tab Benzonatate [Tessalon Perles] 100 mg PO TID PRN cap PRN Reason: Cough Doxycycline [Vibramycin] 100 mg PO BID 6 Days #12 cap SUMAtriptan succinate 100 mg PO BID PRN PRN Reason: Migraine Headache Omeprazole [PriLOSEC] 20 mg PO DAILY diphenhydrAMINE [Benadryl] 25 mg PO QID PRN PRN Reason: Allergy Symptoms bisacodyL [Dulcolax] 10 mg RECTAL DAILY PRN suppositor PRN Reason: Constipation Nicotine 14Mg/24Hr Patch [Habitrol] 1 patch TRANSDERM DAILY patch Magnesium Oxide [Mag-Ox] 400 mg PO TID 5 Days #15 tab Discharge Medication List Ibuprofen [Motrin] 800 mg PO Q8H PRN 10/09/23 [History] [place] Carbonate [[place] Carbonate ER] 300 mg PO BID 10/09/23 [History] Omeprazole [PriLOSEC] 20 mg PO DAILY 10/09/23 [History] SUMAtriptan succinate 100 mg PO BID PRN 10/09/23 [History] busPIRone HCl [Buspar] 5 mg PO BID 10/09/23 [History] diphenhydrAMINE [Benadryl] 25 mg PO QID PRN 10/09/23 [History] lamoTRIgine [lamoTRIgine ER] 300 mg PO DAILY 10/09/23 [History] Benzonatate [Tessalon Perles] 100 mg PO TID PRN cap 10/18/23 [Rx] Doxycycline [Vibramycin] 100 mg PO BID 6 Days #12 cap 10/18/23 [Rx] Magnesium Oxide [Mag-Ox] 400 mg PO TID 5 Days #15 tab 10/18/23 [Rx] Nicotine 14Mg/24Hr Patch [Habitrol] 1 patch TRANSDERM DAILY patch 10/18/23 [Rx] amLODIPine [Norvasc] 5 mg PO DAILY tab 10/18/23 [Rx] bisacodyL [Dulcolax] 10 mg RECTAL DAILY PRN suppositor 10/18/23 [Rx] levETIRAcetam [Keppra] 500 mg PO Q12HR tab 10/18/23 [Rx] Activity/Diet/Wound Care/Special Instructions: Avoid the use of street drugs and alcohol. Take all medications as prescribed. When you are in need of refills on your medications, please contact your medical provider and/or outpatient psychiatrist/provider to have this done. Please go to your scheduled outpatient appointment for aftercare treatment. If symptoms return or become worse, call the crisis line at and/or go to the nearest emergency room for evaluation. National Suicide Hotline 619.
== END 2023-10-24 13:43 | disposition home or self-care (01) | DRG 753 ==
LOC: 3MHU 22:02
PROVIDERS: ADMIT Psychiatry & Neurology Psychiatry; ATTEND Psychiatry & Neurology Psychiatry
DX: F31.30 Bipolar disorder, current episode depressed, mild or moderate severity, unspecified (principal); E66.9 Obesity, unspecified; Z68.39 Body mass index [BMI] 39.0-39.9, adult; F12.10 Cannabis abuse, uncomplicated; F17.210 Nicotine dependence, cigarettes, uncomplicated; T45.0X2A Poisoning by antiallergic and antiemetic drugs, intentional self-harm, initial encounter; T43.592A Poisoning by other antipsychotics and neuroleptics, intentional self-harm, initial encounter; F43.10 Post-traumatic stress disorder, unspecified; F60.3 Borderline personality disorder; G40.909 Epilepsy, unspecified, not intractable, without status epilepticus; H53.2 Diplopia; K58.9 Irritable bowel syndrome, unspecified; H55.09 Other forms of nystagmus; I10 Essential (primary) hypertension; L02.519 Cutaneous abscess of unspecified hand; M62.82 Rhabdomyolysis; N17.0 Acute kidney failure with tubular necrosis; Z56.0 Unemployment, unspecified; Z79.899 Other long term (current) drug therapy; Z82.49 Family history of ischemic heart disease and other diseases of the circulatory system; Z86.59 Personal history of other mental and behavioral disorders; Z88.0 Allergy status to penicillin; Z91.51 Personal history of suicidal behavior; Z88.6 Allergy status to analgesic agent; Z71.3 Dietary counseling and surveillance; Z28.311 Partially vaccinated for COVID-19; Z28.21 Immunization not carried out because of patient refusal
CPT/HCPCS: 80053; 83036; 84443; 85025

== ENCOUNTER 2025-05-11 16:47 | Emergency (ER) | payer OTHER ==
--- NOTE | 2025-05-11 17:49 | ED ---
General Adult HPI - General Source: patient, RN notes reviewed Mode of arrival: ambulatory Limitations: no limitations <Radha Thompson - Last Filed: 05/11/25 17:49> <Coretta Trevino - Last Filed: 05/13/25 11:01> - General Chief complaint: Chest Pain Stated complaint: Chest pain Time Seen by Provider: 05/11/25 17:49 - History of Present Illness Initial comments: Quick note: 25 old female presented the ER for evaluation of right sided chest discomfort. She states approximately 3 hours prior to arrival she started to experience right-sided chest discomfort with radiation to right shoulder and back. She also reports epigastric abdominal discomfort. Patient admits to nausea and vomiting. Patient seen at urgent care and told to come to the ER for further evaluation. Denies fevers (Radha Thompson) This is a 25-year-old female with a history of hypertension, IBS and GERD pre senting to the ER with referral from urgent care for complaints of chest pain that radiates into the right side of her back. Patient states that she has been experiencing this pain that has been worsening over the past few days. She states that it feels like she is having a burning sensation and epigastric abdominal discomfort. She has had a few episodes of nausea and nonbloody nonbilious emesis. She denies fevers, diarrhea, constipation, urinary complaints. (Coretta Trevino) - Related Data Home Medications Medication Instructions Recorded Confirmed Omeprazole [PriLOSEC] 20 mg PO DAILY 10/09/23 10/24/23 Previous Rx's Medication Instructions Recorded Lurasidone [Latuda] 40 mg PO HS 30 Days tab 10/24/23 Melatonin 6 mg PO HS tab 10/24/23 Sertraline [Zoloft] 25 mg PO DAILY #30 tab 10/24/23 amLODIPine [Norvasc] 5 mg PO DAILY #30 tab 10/24/23 levETIRAcetam [Keppra] 500 mg PO Q12HR #60 tab 10/24/23 Allergies Allergy/AdvReac Type Severity Reaction Status Date / Time amoxicillin Allergy Anaphylaxis Verified 05/11/25 16:52 Penicillins Allergy Anaphylaxis Verified 05/11/25 16:52 acetaminophen [From Tylenol] AdvReac Nausea & Verified 05/11/25 16:52 Vomiting Review of Systems ROS Other: All systems not noted in ROS Statement are negative. <Radha Thompson - Last Filed: 05/11/25 17:49> ROS Other: All systems not noted in ROS Statement are negative. <Coretta Trevino - Last Filed: 05/13/25 11:01> ROS Statement: Those systems with pertinent positive or pertinent negative responses have been documented in the HPI. Past Medical History Past Medical History: GERD/Reflux, Hypertension, Skin Disorder Additional Past Medical History / Comment(s): Irritable bowel syndrome, previous Tylenol overdose with acute liver damage, over dose x2. [place], pnumonia, strep, toncillectomy, migranes, bulimia History of Any Multi-Drug Resistant Organisms: None Reported Past Surgical History: Adenoidectomy, Tonsillectomy Additional Past Surgical History / Comment(s): wisdom teeth removal Past Anesthesia/Blood Transfusion Reactions: No Reported Reaction Past Psychological History: Anxiety, Bipolar, Depression, PTSD Smoking Status: Former smoker - Past Family History Father Family Medical History: Diabetes Mellitus, Hypertension Additional Family Medical History / Comment(s): Father is alive with history of diabetes Mother Family Medical History: Hypertension, Thyroid Disorder Additional Family Medical History / Comment(s): Mother is alive with a history of diabetes, hypothyroidism, myocardial infarction, stroke Sister(s) Additional Family Medical History / Comment(s): Patient has 3 sisters with no major medical problems. Patient does not have any brothers. <Radha Thompson - Last Filed: 05/11/25 17:49> General Exam Limitations: no limitations <Radha Thompson - Last Filed: 05/11/25 17:49> Neck exam: Present: normal inspection. Absent: tenderness, meningismus, lymphadenopathy Respiratory exam: Present: normal lung sounds bilaterally. Absent: respiratory distress, wheezes, rales, rhonchi, stridor Cardiovascular Exam: Present: regular rate, normal rhythm, normal heart sounds. Absent: systolic murmur, diastolic murmur, rubs, gallop, clicks GI/Abdominal exam: Present: soft, tenderness (epigastric, RUQ), normal bowel sounds. Absent: distended, guarding, rebound, rigid Extremities exam: Present: normal inspection, full ROM, normal capillary refill. Absent: tenderness, pedal edema, joint swelling, calf tenderness Back exam: Present: normal inspection. Absent: CVA tenderness (R), CVA tenderness (L) <Coretta Trevino - Last Filed: 05/13/25 11:01> - General Exam Comments Initial Comments: Visual Physical Exam Vital signs reviewed General: Well-appearing, nontoxic, no acute distress. Head: Normocephalic, atraumatic Eyes: PERRLA, EOMI ENT: Airway patent Chest: Nonlabored breathing Skin: No visual rash, normal skin tone Neuro: Alert and oriented 3 Musculoskeletal: No gross abnormalities (Radha Thompson) Course Vital Signs 05/11/25 05/11/25 05/11/25 16:48 18:39 19:51 Temperature 97.8 F Pulse Rate 77 60 Pulse Rate [ 80 Bilateral Radial] Respiratory 16 16 Rate Blood Pressure 139/71 140/98 O2 Sat by Pulse 99 98 Oximetry 05/11/25 21:13 Temperature 97.6 F Pulse Rate 82 Pulse Rate [ Bilateral Radial] Respiratory 17 Rate Blood Pressure 150/106 O2 Sat by Pulse 96 Oximetry Medical Decision Making <Radha Thompson - Last Filed: 05/11/25 17:49> - Lab Data Result diagrams: 05/11/25 18:25 05/11/25 18:25 <Coretta Trevino - Last Filed: 05/13/25 11:01> - Medical Decision Making I performed the quick note portion of this chart. Electronically signed by Radha Thompson PA-C (Radha Thompson) Was pt. sent in by a medical professional or institution ([facility], [facility], urgent care, hospital, or skilled nursing...) When possible be specific @ -Patient was advised by urgent care to report to emergency department for further evaluation of epigastric and chest pain. Did you speak to anyone other than the patient for history (EMS, parent, family, police, friend...)? What history was obtained from this source @ -No Did you review nursing and triage notes (agree or disagree)? Why? @ -I reviewed and agree with nursing and triage notes Were old charts reviewed (outside hosp., previous admission, EMS record, old EKG, old radiological studies, urgent care reports/EKG's, skilled nursing records)? Report findings @ -No old charts were reviewed Differential Diagnosis (chest pain, altered mental status, abdominal pain women, abdominal pain men, vaginal bleeding, weakness, fever, dyspnea, syncope, headache, dizziness, GI bleed, back pain, seizure, CVA, palpatations, mental health, musculoskeletal)? @ -Differential Chest Pain: Stable Angina, Unstable Angina, STEMI, NSTEMI Aortic Dissection, Pneumothorax, Musculoskeletal, Esophageal Spasm GERD, Cholecystitis, Pancreatitis, Zoster, this is not meant to be an all-inclusive list. EKG interpreted by me (3pts min.). @ -Completed at 1658 sinus rhythm with a ventricular of 71, IA interval 139, QRS 88, QT 375, QTc 398. X-rays interpreted by me (1pt min.). @ -Chest x-ray no acute cardiopulmonary process CT interpreted by me (1pt min.). @ -None done U/S interpreted by me (1pt. min.). @ -Ultrasound of the gallbladder reveals no acute process What testing was considered but not performed or refused? (CT, X-rays, U/S, labs)? Why? @ -None What meds were considered but not given or refused? Why? @ -None Did you discuss the management of the patient with other professionals (professionals i.e. , PA, [employer] [facility], lab, RT, psych nurse, neonatal social worker, specialty sales consultant, teacher, occupational medicine officer, manager control)? Give summary @ -No Was smoking cessation discussed for >3mins.? @ -No Was critical care preformed (if so, how long)? @ -No Were there social determinants of health that impacted care today? How? (Homelessness, low income, unemployed, alcoholism, drug addiction, transp ortation, low edu. Level, literacy, decrease access to med. care, detention, rehab)? @ -No Was there de-escalation of care discussed even if they declined (Discuss DNR or withdrawal of care, Hospice)? DNR status @ -No What co-morbidities impacted this encounter? (DM, HTN, Smoking, COPD, CAD, Cancer, CVA, ARF, Chemo, Hep., AIDS, mental health diagnosis, sleep apnea, morbid obesity)? @ -None Was patient admitted / discharged? Hospital course, mention meds given and route, prescriptions, significant lab abnormalities, going to OR and other pertinent info. @ -Discharge. 25 old female presenting to the ER with referral from urgent care for concerns of epigastric abdominal pain and chest pain. Patient is originally evaluated in the emergency department waiting room as a quick note. On my evaluation the patient is resting comfortably in examination bed in no signs distress. Her initial vitals are stable. EKG is normal sinus rhythm with no noted arrhythmias. Patient noted to have mild epigastric tenderness and right upper quadrant tenderness to palpation. She is offered pain medication however has declined. Laboratory testing is unremarkable including CBC, CMP, troponin, D-dimer. Urinalysis with signs infection. hCG is negative. Ultrasound imaging of the gallbladder reveals no acute intra-abdominal process. Recommend the patient follow-up with primary care provider for further evaluation. She is stable for discharge. Case discussed with my attending Dr. Parekh. Undiagnosed new problem with uncertain prognosis? @ -No Drug Therapy requiring intensive monitoring for toxicity (Heparin, Nitro, Insulin, Cardizem)? @ -No Were any procedures done? @ -No Diagnosis/symptom? @ -epugatric abdominal pain, chest pain Acute, or Chronic, or Acute on Chronic? @ -acute Uncomplicated (without systemic symptoms) or Complicated (systemic symptoms)? @ -uncomplicated Side effects of treatment? @ -No Exacerbation, Progression, or Severe Exacerbation? @ -No Poses a threat to life or bodily function? How? (Chest pain, [place], [place], pneumonia, PE, COPD, DKA, ARF, appy, cholecystitis, CVA, Diverticulitis, Homicidal, Suicidal, threat to staff... and all critical care pts) @ -No (Belinda,Coretta) - Lab Data Lab Results 05/11/25 05/11/25 05/11/25 Range/Units 18:25 18:25 18:25 WBC 7.39 (4.50-10.00) 10*3/uL RBC 4.63 (4.10-5.20) 10*6/uL Hgb 13.8 (12.0-15.0) g/dL Hct 39.2 (37.2-46.3) % MCV 84.7 (80.0-97.0) fL MCH 29.8 (27.0-32.0) pg MCHC 35.2 (32.0-37.0) g/dL Plt Count 300 (140-440) 10*3/uL MPV 9.5 (9.5-12.2) fL Immature Gran % (Auto) 0.4 % Neutrophils % 56.6 % Lymphocytes % 35.5 % Monocytes % 6.5 % Eosinophils % 0.7 % Basophils % 0.3 % Immature Gran # 0.03 (0.00-0.04) 10*3/uL Neutrophils # 4.19 (1.80-7.70) 10*3/uL Lymphocytes # 2.62 (0.90-5.00) 10*3/uL Monocytes # 0.48 (0.20-1.00) 10*3/uL Eosinophils # 0.05 (0.04-0.35) 10*3/uL Basophils # 0.02 (0.00-0.10) 10*3/uL PT 10.1 (10.0-12.5) sec INR 0.9 (<1.2) APTT 25.5 (22.0-30.0) sec D-Dimer (<0.60) mg/L FEU Sodium 140 (137-145) mmol/L Potassium 4.1 (3.5-5.1) mmol/L Chloride 104 (98-107) mmol/L Carbon Dioxide 27 (22-30) mmol/L Anion Gap 9 mmol/L BUN 7 (7-17) mg/dL Creatinine 0.66 (0.52-1.04) mg/dL Est GFR (CKD-EPI)AfAm >90 (>60 ml/min/1.73 sqM) Est GFR (CKD-EPI)NonAf >90 (>60 ml/min/1.73 sqM) Glucose 81 (74-99) mg/dL Calcium 9.8 (8.4-10.2) mg/dL Magnesium 1.8 (1.6-2.3) mg/dL Total Bilirubin 0.5 (0.2-1.3) mg/dL AST 19 (14-36) U/L ALT 15 (4-34) U/L Alkaline Phosphatase 73 (38-126) U/L Troponin I (0.000-0.034) ng/mL Total Protein 7.0 (6.3-8.2) g/dL Albumin 4.3 (3.5-5.0) g/dL Lipase 68 (23-300) U/L Urine Color Urine Appearance (Clear) Urine pH (5.0-8.0) Ur Specific Ramsay (1.001-1.035) Urine Protein (Negative) Urine Glucose (UA) (Negative) Urine Ketones (Negative) Urine Blood (Negative) Urine Nitrite (Negative) Urine Bilirubin (Negative) Urine Urobilinogen (<2.0) mg/dL Ur Leukocyte Esterase (Negative) Urine RBC (0-5) /hpf Urine WBC (0-5) /hpf Ur Squamous Epith Cells (0-4) /hpf Urine Mucus (None) /hpf Urine HCG, Qual (Not Detectd) 05/11/25 05/11/25 05/11/25 Range/Units 18:25 18:25 18:36 WBC (4.50-10.00) 10*3/uL RBC (4.10-5.20) 10*6/uL Hgb (12.0-15.0) g/dL Hct (37.2-46.3) % MCV (80.0-97.0) fL MCH (27.0-32.0) pg MCHC (32.0-37.0) g/dL Plt Count (140-440) 10*3/uL MPV (9.5-12.2) fL Immature Gran % (Auto) % Neutrophils % % Lymphocytes % % Monocytes % % Eosinophils % % Basophils % % Immature Gran # (0.00-0.04) 10*3/uL Neutrophils # (1.80-7.70) 10*3/uL Lymphocytes # (0.90-5.00) 10*3/uL Monocytes # (0.20-1.00) 10*3/uL Eosinophils # (0.04-0.35) 10*3/uL Basophils # (0.00-0.10) 10*3/uL PT (10.0-12.5) sec INR (<1.2) APTT (22.0-30.0) sec D-Dimer 0.30 (<0.60) mg/L FEU Sodium (137-145) mmol/L Potassium (3.5-5.1) mmol/L Chloride (98-107) mmol/L Carbon Dioxide (22-30) mmol/L Anion Gap mmol/L BUN (7-17) mg/dL Creatinine (0.52-1.04) mg/dL Est GFR (CKD-EPI)AfAm (>60 ml/min/1.73 sqM) Est GFR (CKD-EPI)NonAf (>60 ml/min/1.73 sqM) Glucose (74-99) mg/dL Calcium (8.4-10.2) mg/dL Magnesium (1.6-2.3) mg/dL Total Bilirubin (0.2-1.3) mg/dL AST (14-36) U/L ALT (4-34) U/L Alkaline Phosphatase (38-126) U/L Troponin I <0.012 (0.000-0.034) ng/mL Total Protein (6.3-8.2) g/dL Albumin (3.5-5.0) g/dL Lipase (23-300) U/L Urine Color Yellow Urine Appearance Cloudy H (Clear) Urine pH 5.5 (5.0-8.0) Ur Specific Ramsay 1.034 (1.001-1.035) Urine Protein Trace H (Negative) Urine Glucose (UA) Negative (Negative) Urine Ketones Negative (Negative) Urine Blood Negative (Negative) Urine Nitrite Negative (Negative) Urine Bilirubin Negative (Negative) Urine Urobilinogen 2.0 (<2.0) mg/dL Ur Leukocyte Esterase Negative (Negative) Urine RBC 2 (0-5) /hpf Urine WBC 1 (0-5) /hpf Ur Squamous Epith Cells 32 H (0-4) /hpf Urine Mucus Many H (None) /hpf Urine HCG, Qual (Not Detectd) 05/11/25 Range/Units 18:36 WBC (4.50-10.00) 10*3/uL RBC (4.10-5.20) 10*6/uL Hgb (12.0-15.0) g/dL Hct (37.2-46.3) % MCV (80.0-97.0) fL MCH (27.0-32.0) pg MCHC (32.0-37.0) g/dL Plt Count (140-440) 10*3/uL MPV (9.5-12.2) fL Immature Gran % (Auto) % Neutrophils % % Lymphocytes % % Monocytes % % Eosinophils % % Basophils % % Immature Gran # (0.00-0.04) 10*3/uL Neutrophils # (1.80-7.70) 10*3/uL Lymphocytes # (0.90-5.00) 10*3/uL Monocytes # (0.20-1.00) 10*3/uL Eosinophils # (0.04-0.35) 10*3/uL Basophils # (0.00-0.10) 10*3/uL PT (10.0-12.5) sec INR (<1.2) APTT (22.0-30.0) sec D-Dimer (<0.60) mg/L FEU Sodium (137-145) mmol/L Potassium (3.5-5.1) mmol/L Chloride (98-107) mmol/L Carbon Dioxide (22-30) mmol/L Anion Gap mmol/L BUN (7-17) mg/dL Creatinine (0.52-1.04) mg/dL Est GFR (CKD-EPI)AfAm (>60 ml/min/1.73 sqM) Est GFR (CKD-EPI)NonAf (>60 ml/min/1.73 sqM) Glucose (74-99) mg/dL Calcium (8.4-10.2) mg/dL Magnesium (1.6-2.3) mg/dL Total Bilirubin (0.2-1.3) mg/dL AST (14-36) U/L ALT (4-34) U/L Alkaline Phosphatase (38-126) U/L Troponin I (0.000-0.034) ng/mL Total Protein (6.3-8.2) g/dL Albumin (3.5-5.0) g/dL Lipase (23-300) U/L Urine Color Urine Appearance (Clear) Urine pH (5.0-8.0) Ur Specific Ramsay (1.001-1.035) Urine Protein (Negative) Urine Glucose (UA) (Negative) Urine Ketones (Negative) Urine Blood (Negative) Urine Nitrite (Negative) Urine Bilirubin (Negative) Urine Urobilinogen (<2.0) mg/dL Ur Leukocyte Esterase (Negative) Urine RBC (0-5) /hpf Urine WBC (0-5) /hpf Ur Squamous Epith Cells (0-4) /hpf Urine Mucus (None) /hpf Urine HCG, Qual Not Detected (Not Detectd) Disposition <Radha Thompson - Last Filed: 05/11/25 17:49> Is patient prescribed a controlled substance at d/c from ED?: No Time of Disposition: 20:56 <Coretta Trevino - Last Filed: 05/13/25 11:01> Clinical Impression: Nausea and vomiting, Non-cardiac chest pain Disposition: HOME SELF-CARE Condition: Good Instructions (If sedation given, give patient instructions): Acute Nausea and Vomiting (DC) Additional Instructions: Please return to the Emergency Department if symptoms worsen or any other concerns. Referrals: Patrica Ty DO [Primary Care Provider] - 1-2 days Latricia Acuña MD [STAFF PHYSICIAN] - 1-2 days
[2025-05-11 18:51] LABS: INR 0.9 (<1.2); Partial Thromboplastin Time 25.5 sec (22.0-30.0); Prothrombin Time 10.1 sec (10.0-12.5)
[2025-05-11 18:54] LABS: ALT 15 U/L (4-34); AST 19 U/L (14-36); African American GFR (CKD) >90 (>60 ml/min/1.73 sqM); Albumin 4.3 g/dL (3.5-5.0); Alkaline Phosphatase 73 U/L (38-126); Anion Gap 9 mmol/L; Blood Urea Nitrogen 7 mg/dL (7-17); Calcium 9.8 mg/dL (8.4-10.2); Carbon Dioxide 27 mmol/L (22-30); Chloride 104 mmol/L (98-107); Glucose 81 mg/dL (74-99); Lipase 68 U/L (23-300); Magnesium 1.8 mg/dL (1.6-2.3); Non-African American GFR(CKD) >90 (>60 ml/min/1.73 sqM); Potassium 4.1 mmol/L (3.5-5.1); Sodium 140 mmol/L (137-145); Total Protein 7.0 g/dL (6.3-8.2)
[2025-05-11 18:58] LABS: Basophils # (A) 0.02 10*3/uL (0.00-0.10); Basophils % (A) 0.3 %; Eosinophils # (A) 0.05 10*3/uL (0.04-0.35); Eosinophils % (A) 0.7 %; HCT 39.2 % (37.2-46.3); HGB 13.8 g/dL (12.0-15.0); Lymphocytes # (A) 2.62 10*3/uL (0.90-5.00); Lymphocytes % (A) 35.5 %; MCH 29.8 pg (27.0-32.0); MCHC 35.2 g/dL (32.0-37.0); MCV 84.7 fL (80.0-97.0); Monocytes # (A) 0.48 10*3/uL (0.20-1.00); Monocytes % (A) 6.5 %; Neutrophils # (A) 4.19 10*3/uL (1.80-7.70); Neutrophils % (A) 56.6 %; Platelet Count 300 10*3/uL (140-440); RBC 4.63 10*6/uL (4.10-5.20); RDW 14.5 % (11.5-14.5); WBC 7.39 10*3/uL (4.50-10.00)
[2025-05-11 19:07] LABS: Bilirubin,Urine Negative (Negative); Blood,Urine Negative (Negative); Color,Urine Yellow; Glucose,Urine (UA) Negative (Negative); Ketones,Urine Negative (Negative); Leukocyte Esterase,Urine Negative (Negative); Mucus,Urine Many /hpf; Nitrite,Urine Negative (Negative); PH, Urine 5.5 (5.0-8.0); Protein,Urine Trace (Negative); RBC,Urine 2 /hpf (0-5); Specific Gravity,Urine 1.034 (1.001-1.035); Squamous Epithelial Cell,Urine 32 /hpf (0-4); Urobilinogen,Urine 2.0 mg/dL (<2.0); WBC,Urine 1 /hpf (0-5)
--- NOTE | 2025-05-11 19:17 | XR ---
EXAMINATION TYPE: XR chest 2V DATE OF EXAM: 05/11/2025 6:51 PM COMPARISON: Chest radiographs from 10/14/2023. CLINICAL INDICATION: Female, 25 years old with history of Chest Pain; [facility] TECHNIQUE: XR chest 2V Frontal and lateral views of the chest. FINDINGS: Lungs/Pleura: There is no evidence of pleural effusion, focal consolidation, or pneumothorax. Pulmonary vascularity: Unremarkable. Heart/mediastinum: Cardiomediastinal silhouette is unremarkable. Musculoskeletal: No acute osseous pathology. IMPRESSION: No acute cardiopulmonary disease/process. [facility], , 05/11/2025 7:14 PM
--- NOTE | 2025-05-11 20:40 | US ---
EXAMINATION TYPE: US gallbladder DATE OF EXAM: 05/11/2025 COMPARISON: EXAMINATION TYPE: US gallbladder DATE OF EXAM: 05/11/2025 COMPARISON: NONE CLINICAL INDICATION: Female, 25 years old with history of RUQ ab pain w/ radiation into back ,N/V; US 2017 TECHNIQUE: Grayscale and color Doppler imaging of the right upper quadrant was performed. FINDINGS: EXAM MEASUREMENTS: Liver Length: 15.3 cm Gallbladder Wall: 0.2 cm CBD: 0.5 cm Right Kidney: 10.3 x 4.5 x 5.4 cm PAPER BALER NOTES:slightly limited due to bowel gas Pancreas: Obscured by bowel gas Liver: slightly echogenic Gallbladder: wnl Evidence for sonographic Reis's sign: no CBD: wnl Right Kidney: wnl IMPRESSION: No evidence for acute abdominal process. [facility], , 05/11/2025 8:37 PM
[2025-05-11 21:20] VITALS: BP 150/106; PULSE 82; RESP 17; TEMP 97.6
== END 2025-05-11 21:19 | disposition home or self-care (01) ==
LOC: EC 16:47
DX: R07.9 Chest pain, unspecified (principal); R11.2 Nausea with vomiting, unspecified; Z87.891 Personal history of nicotine dependence; Z88.0 Allergy status to penicillin; Z88.6 Allergy status to analgesic agent
CPT/HCPCS: 36415; 71046; 76705; 80053; 81001; 81025; 83690; 83735; 84484; 85025; 85379; 85610; 85730; 93005; 99285